=== PATIENT | female | born 1955 | race Caucasian/White ===

== ENCOUNTER 2020-01-15 06:00 | Outpatient (CLI) | payer MEDICARE, SELFPAY ==
[2020-01-15 17:06] LABS: SARS-CoV-2 RNA PCR Negative
== END 2020-01-15 06:01 | disposition home or self-care (01) ==
LOC: ANHCOVIDDT 06:01
PROVIDERS: Visit Provider Internal Medicine Gastroenterology
DX: Z01.818 Encounter for other preprocedural examination (principal); Z11.59 Encounter for screening for other viral diseases
CPT/HCPCS: 87635; C9803; U0003

== ENCOUNTER 2020-01-18 02:10 | Day surgery (SDC) | payer MEDICARE, SELFPAY ==
[2020-01-14 08:47] VITALS: BMI 22.6
[2020-01-18 06:30] VITALS: BP 130/81; PULSE 84; RESP 18; TEMP 37.2; O2SAT 94
[2020-01-18] MEDS: LACTATED RINGERS 1,000 ML 150 ML IV CONT (06:55)
--- NOTE | 2020-01-18 06:58 | WPDANESEPPF ---
Anes - Initial Pre Proc Eval Procedure: Operation Date: 01/18/20 07:30 Proposed Procedures p Colonoscopy - William Pratt MD Date/Time: 01/18/20 06:58 Surgeon: William Pratt MD Pre Op Diagnosis: Change in Bowel, Weight Loss Patient Data Age: 64 Gender: F Height: 4 ft 11 in Weight: 50.5 kg Last Vital Signs Temp 37.2 C 01/18/20 06:30 Pulse 84 01/18/20 06:30 Resp 18 01/18/20 06:30 BP 130/81 01/18/20 06:30 Pulse Ox 94 01/18/20 06:30 Allergies Allergy/AdvReac Type Severity Reaction Status Date / Time ciprofloxacin Allergy Intermediate sob and Verified 01/18/20 06:53 nausea clindamycin Allergy Intermediate sob and Verified 01/18/20 06:53 nausea Penicillins Allergy Intermediate sob and Verified 01/18/20 06:53 nausea amitriptyline Allergy Mild Nausea Verified 01/18/20 06:53 escitalopram Allergy Mild nauseated Verified 01/18/20 06:53 Home Medications Medication Instructions Recorded Confirmed Type albuterol sulfate [ProAir HFA] 1 puff INHALATION PRN PRN 01/14/20 01/18/20 History amlodipine 10 mg PO DAILY 01/14/20 01/14/20 History aspirin 81 mg PO DAILY 01/14/20 01/14/20 History bupropion HCl 150 mg PO DAILY 01/14/20 01/14/20 History gabapentin 300 mg PO TID 01/14/20 01/14/20 History hydrocodone-acetaminophen 5 - 325 tablet PO PRN PRN 01/14/20 01/14/20 History levothyroxine 100 mcg PO DAILY 01/14/20 01/14/20 History metoprolol tartrate 50 mg PO BID 01/14/20 01/18/20 History sertraline 50 mg PO DAILY 01/14/20 01/14/20 History umeclidinium [Incruse Ellipta] 62.5 inh INHALATION DAILY 01/14/20 01/14/20 History Patient hx anesthesia problems: none Family hx anesthesia problems: post op nausea/vomiting PMFSH Past Medical History Medical History (Updated 01/18/20 @ 06:58 by Cliff Flores MD) Anxiety COPD (chronic obstructive pulmonary disease) Depression Hypertension Hypothyroid Family History Family History Sibling Depression Family history of diabetes mellitus in first degree relative Mother Hypertension Father Family history of coronary artery disease Social History Social History Alcohol intake: never Anes - Eval Final PreProcedure Day of Procedure 01/18/20 06:58 Patient weight: normal Heart: regular rate and rhythm Lungs: decreased breath sounds Airway: Mallampati scale class 1 Neurological: alert and oriented Last oral intake: >/= 8 hours ASA classification: III Emergent: no Anesthetic plan: proceed Anesthesia type and monitoring: general GIVS and standard monitoring Informed Consent: The patient's anesthetic plan and its attendant risks and benefits were discussed with the patient/family/POA. Questions were solicited and answers provided to the satisfaction of the patient/family/POA.
--- NOTE | 2020-01-18 07:16 | PM.HPGS ---
History of Present Illness History of Present Illness Consent: Risks, benefits, and alternatives have been discussed and questions answered. Patient agrees to proceed with procedure. Chief complaint: Change in Bowel, Weight Loss Narrative: Romeo Aponte is a 64 year old W female Referred for colonoscopy secondary to recent change in bowel pattern. Patient states approximately 5 weeks ago she had developed a rash in the right lower abdomen associated with diarrhea. Several loose stools per day which he described as yellowish to green. She has had occasional bright red blood per rectum on the toilet paper. No fever chills or sweats. No recent travel. No change in medications. No exposure to well water. Patient's last colonoscopy was 15 years ago which was unremarkable. She states her brother had pancreatic cancer. Patient has lost approximately 5 lb. Patient has at least 30 year pack history of smoking continues to smoke. [facility] Past Medical History Medical History Anxiety COPD (chronic obstructive pulmonary disease) Depression Hypertension Hypothyroid Surgical History Surgical History (Updated 01/18/20 @ 07:19 by William Pratt MD) H/O total hysterectomy History of bladder suspension procedure Status post cholecystectomy Family History Family History Sibling Depression Family history of diabetes mellitus in first degree relative Mother Hypertension Father Family history of coronary artery disease Social History Social History Alcohol intake: never Meds Home Medications and Allergies Home Medications Medication Instructions Recorded Confirmed Type albuterol sulfate [ProAir HFA] 1 puff INHALATION PRN PRN 01/14/20 01/18/20 History amlodipine 10 mg PO DAILY 01/14/20 01/14/20 History aspirin 81 mg PO DAILY 01/14/20 01/14/20 History bupropion HCl 150 mg PO DAILY 01/14/20 01/14/20 History gabapentin 300 mg PO TID 01/14/20 01/14/20 History hydrocodone-acetaminophen 5 - 325 tablet PO PRN PRN 01/14/20 01/14/20 History levothyroxine 100 mcg PO DAILY 01/14/20 01/14/20 History metoprolol tartrate 50 mg PO BID 01/14/20 01/18/20 History sertraline 50 mg PO DAILY 01/14/20 01/14/20 History umeclidinium [Incruse Ellipta] 62.5 inh INHALATION DAILY 01/14/20 01/14/20 History Allergies Allergy/AdvReac Type Severity Reaction Status Date / Time ciprofloxacin Allergy Intermediate sob and Verified 01/18/20 06:53 nausea clindamycin Allergy Intermediate sob and Verified 01/18/20 06:53 nausea Penicillins Allergy Intermediate sob and Verified 01/18/20 06:53 nausea amitriptyline Allergy Mild Nausea Verified 01/18/20 06:53 escitalopram Allergy Mild nauseated Verified 01/18/20 06:53 Vital Signs Vital Signs - 24 hr 01/18/20 06:30 Temperature 37.2 C Pulse Rate 84 Respiratory Rate 18 Blood Pressure 130/81 Pulse Oximetry 94 Exam Const: Orientation/consciousness: patient oriented x3 Resp: Auscultation: clear to auscultation bilaterally Cardio: Rate: regular rate Rhythm: regular rhythm Heart sounds: no murmurs GI: GI Palp: Yes Soft to palpation, No Tenderness to palpation present (GI), Yes No hepatosplenomegaly present and No Palpable mass present Auscultation: normal bowel sounds Neuro: General: patient oriented x3 and no focal motor deficits Extrem: General: no pedal edema Assessment and Plan Additional Plan colonoscopy for evaluation of change in bowel pattern and hematochezia
[2020-01-18 07:55] VITALS: BP 77/53; PULSE 72; RESP 15; O2SAT 100
[2020-01-18 08:05] VITALS: BP 105/59; PULSE 65; RESP 17; O2SAT 98
[2020-01-18 08:15] VITALS: BP 119/65; PULSE 61; RESP 20; O2SAT 100
--- NOTE | 2020-01-18 15:31 | SUR.OPER ---
0800 -STOOL SAMPLE WALKED DOWN TO LAB AND GIVEN TO LAB STAFF.
== END 2020-01-18 08:33 | disposition home or self-care (01) ==
PROVIDERS: Visit Provider Internal Medicine Gastroenterology
PROC: 0DJD8ZZ Inspection of Lower Intestinal Tract, Via Natural or Artificial Opening Endoscopic (ICD-10-PCS; CPT 45378; principal; 2020-01-18 07:30)
DX: K52.9 Noninfective gastroenteritis and colitis, unspecified (principal); J44.9 Chronic obstructive pulmonary disease, unspecified; I10 Essential (primary) hypertension; E03.9 Hypothyroidism, unspecified; F41.8 Other specified anxiety disorders
CPT/HCPCS: 45380; 88305; J2001; J2704; J7120

== ENCOUNTER → 2020-08-23 13:53 | Outpatient (CLI) | payer MEDICARE, SELFPAY ==
--- NOTE | ~2020-08-23 | MM_ITS ---
EXAMINATION: MM screening erik BI w thomas HISTORY: Screening mammogram TECHNIQUE: Craniocaudal and mediolateral oblique 3-D tomosynthesis images were obtained and synthetic 2-D images were generated. CAD analysis was submitted and interpreted. COMPARISON: 05/25/2017, 03/19/2011 bilateral digital screening mammogram examinations BREAST PARENCHYMAL COMPOSITION: There are scattered areas of fibroglandular density. FINDINGS: Stable mild fibroglandular asymmetry. There is no evidence of suspicious mass, calcificatio n, or architectural distortion to suggest malignancy in either breast. There has been no suspicious i nterval change. IMPRESSION: 1. No mammographic evidence of malignancy. 2. Recommend routine screening mammography in one year. BI-RADS Category 2: Benign finding(s). Reviewed, dictated and finalized at location A. [employer]
== END ==
PROVIDERS: Visit Provider Obstetrics & Gynecology
DX: Z12.31 Encounter for screening mammogram for malignant neoplasm of breast (principal)
CPT/HCPCS: 77063; 77067

== ENCOUNTER 2021-08-15 15:08 | Emergency (ER) | payer MEDICARE, SELFPAY ==
[2021-08-15 15:15] VITALS: BP 153/76; PULSE 75; RESP 12; TEMP 36.6; O2SAT 98
[2021-08-15 15:20] VITALS: BP 153/76; PULSE 75; RESP 12; TEMP 36.6; O2SAT 98
--- NOTE | 2021-08-15 15:25 | ED.FEMALEGU ---
HPI - Female Genitourinary General Chief complaint: Urogenital-Female Stated complaint: POS UTI Time Seen by Provider: 08/15/21 15:15 Source: patient and RN notes reviewed History of Present Illness HPI Narrative: Patient is a 65-year-old female who presents the urgent care with complaints of right-sided flank pain with intermittent radiation to the right groin. Patient states that it started yesterday with urinary frequency. Denies of any blood in the urine. States that she has had bouts of nausea but denies of any vomiting. Denies of fever. Patient has increased her water intake but otherwise has not taken anything [id number] for her symptoms. Patient does report of a history of colitis but states the symptoms are not similar . Patient denies of history of kidney stones. No other acute complaints. No acute distress noted. Patient read the plan of care. Some parts of this dictation were generated by voice recognition software and may contain typographical and/or grammatical inaccuracies. Related Data Home Medications Medication Instructions Recorded Confirmed Incruse Ellipta 62.5 inh INHALATION DAILY 01/14/20 01/14/20 albuterol sulfate [ProAir HFA] 1 puff INHALATION PRN PRN 01/14/20 01/18/20 amlodipine 10 mg PO DAILY 01/14/20 01/14/20 aspirin 81 mg PO DAILY 01/14/20 01/14/20 bupropion HCl 150 mg PO DAILY 01/14/20 01/14/20 gabapentin 300 mg PO TID 01/14/20 01/14/20 hydrocodone-acetaminophen 5 - 325 tablet PO PRN PRN 01/14/20 01/14/20 levothyroxine 100 mcg PO DAILY 01/14/20 01/14/20 metoprolol tartrate 50 mg PO BID 01/14/20 01/18/20 sertraline 50 mg PO DAILY 01/14/20 01/14/20 Allergies Allergy/AdvReac Type Severity Reaction Status Date / Time ciprofloxacin Allergy Intermediate sob and Verified 01/18/20 06:53 nausea clindamycin Allergy Intermediate sob and Verified 01/18/20 06:53 nausea Penicillins Allergy Intermediate sob and Verified 01/18/20 06:53 nausea amitriptyline Allergy Mild Nausea Verified 01/18/20 06:53 escitalopram Allergy Mild nauseated Verified 01/18/20 06:53 Review of Systems Review of Systems: CONSTITUTIONAL: Denies fever, chills, or sweats. EYES: Denies visual changes, redness, or discharge. ENT: Denies rhinorrhea, congestion, sore throat, or otalgia. CARDIOVASCULAR: Denies chest pain, palpitations, or edema. RESPIRATORY: Denies cough or dyspnea. GASTROINTESTINAL: Reports of nausea without vomiting or diarrhea GENITOURINARY: Reports of urinary frequency and right-sided flank pain SKIN: Denies rash or itching. MUSCULOSKELETAL: Denies back pain, joint pain, or myalgia. NEUROLOGIC: Denies headache, numbness, or weakness. All other systems reviewed are negative, except as documented in HPI. [facility] Past Medical History Medical History (Updated 08/15/21 @ 15:31 by TAVARES Ellis) Anxiety COPD (chronic obstructive pulmonary disease) Depression Hypertension Hypothyroid Surgical History Surgical History (Updated 01/18/20 @ 07:19 by William CaseMD) H/O total hysterectomy History of bladder suspension procedure Status post cholecystectomy Family History Family History Sibling Depression Family history of diabetes mellitus in first degree relative Mother Hypertension Father Family history of coronary artery disease Social History Social History Alcohol intake: never Comments At the time of my signature, I reviewed and agree with the nursing past medical, surgical, social, and family history. There is no relevant family history pertinent to the patient complaint. Exam Narrative: GENERAL: This is a well-nourished, well-developed patient, in no apparent distress. HEAD: normocephalic, atraumatic. EYES: PERRL. Sclera clear/white. Vision is grossly intact. EARS: External ears normal NOSE: External nose normal with no obviou
== END 2021-08-15 15:36 | disposition home or self-care (01) ==
PROVIDERS: Emergency Provider Nurse Practitioner Family
DX: R10.9 Unspecified abdominal pain (principal); J44.9 Chronic obstructive pulmonary disease, unspecified; I10 Essential (primary) hypertension; E03.9 Hypothyroidism, unspecified; F41.9 Anxiety disorder, unspecified; F32.A Depression, unspecified
CPT/HCPCS: 81003; 99212; G0463

== ENCOUNTER 2022-04-07 14:22 | Emergency (ER) | payer MEDICARE, SELFPAY ==
[2022-04-07 14:25] VITALS: BP 167/90; PULSE 70; RESP 16; TEMP 36.6; O2SAT 94
--- NOTE | 2022-04-07 15:11 | ED.GENADULT ---
HPI - General Adult General Chief complaint: Wound/Laceration Stated complaint: infected fingers Time Seen by Provider: 04/07/22 14:31 History of Present Illness HPI narrative: 66-year-old female presents for evaluation of a rash versus infection on her fingers x2 weeks. She has kept the wound covered with gauze and ointment at all times during the day. Related Data Home Medications Medication Instructions Recorded Confirmed albuterol sulfate 90 mcg/actuation 1 puff inhalation PRN PRN sob 01/14/20 01/18/20 aerosol inhaler (ProAir HFA) amlodipine 10 mg tablet 10 mg PO DAILY 01/14/20 01/14/20 aspirin 81 mg tablet,delayed 81 mg PO DAILY 01/14/20 01/14/20 release bupropion HCl 150 mg 24 hr tablet, 150 mg PO DAILY 01/14/20 01/14/20 extended release gabapentin 300 mg capsule 300 mg PO TID 01/14/20 01/14/20 hydrocodone 5 mg-acetaminophen 325 5 - 325 tablet PO PRN PRN Pain 01/14/20 01/14/20 mg tablet levothyroxine 100 mcg tablet 100 mcg PO DAILY 01/14/20 01/14/20 metoprolol tartrate 50 mg tablet 50 mg PO BID 01/14/20 01/18/20 sertraline 50 mg tablet 50 mg PO DAILY 01/14/20 01/14/20 umeclidinium 62.5 mcg/actuation 62.5 inh inhalation DAILY 01/14/20 01/14/20 blister powder for inhalation (Incruse Ellipta) Allergies Allergy/AdvReac Type Severity Reaction Status Date / Time ciprofloxacin Allergy Intermediate sob and Verified 01/18/20 06:53 nausea clindamycin Allergy Intermediate sob and Verified 01/18/20 06:53 nausea Penicillins Allergy Intermediate sob and Verified 01/18/20 06:53 nausea amitriptyline Allergy Mild Nausea Verified 01/18/20 06:53 escitalopram Allergy Mild nauseated Verified 01/18/20 06:53 Review of Systems Review of Systems: CONSTITUTIONAL: Denies fever, chills, or sweats. EYES: Denies visual changes, redness, or discharge. ENT: Denies rhinorrhea, congestion, sore throat, or otalgia. CARDIOVASCULAR: Denies chest pain, palpitations, or edema. RESPIRATORY: Denies cough or dyspnea. GASTROINTESTINAL: Denies abdominal pain, nausea, vomiting, or diarrhea. GENITOURINARY: Denies dysuria or hematuria. SKIN: Denies rash or itching. MUSCULOSKELETAL: Denies back pain, joint pain, or myalgia. NEUROLOGIC: Denies headache, numbness, or weakness. PSYCHIATRIC: Denies anxiety or depression. PMFSH Past Medical History Medical History (Updated 04/08/22 @ 00:00 by Haydee Ramirez) Anxiety COPD (chronic obstructive pulmonary disease) Depression Hypertension Hypothyroid Surgical History Surgical History (Updated 01/18/20 @ 07:19 by William PrattMD) H/O total hysterectomy History of bladder suspension procedure Status post cholecystectomy Family History Family History Sibling Depression Family history of diabetes mellitus in first degree relative Mother Hypertension Father Family history of coronary artery disease Social History Social History Alcohol intake: never Exam Narrative: GENERAL: Well-appearing, well-nourished, and in no acute distress. HEAD: Normocephalic, atraumatic. EYES: PERRLA and EOMI. ENT: Nares clear, no rhinorrhea or epistaxis. Mucous membranes moist. NECK: Supple. CHEST: Clear to auscultation. No respiratory distress. HEART: Regular rate and rhythm. No murmur heard. Normal peripheral pulses. ABDOMEN: Soft, nontender, nondistended, normal active bowel sounds. EXTREMITIES: Normal range of motion. No edema. SKIN: Warm, dry, skin breakdown, rash noted on distal half of index and middle finger NEURO: No focal deficits. Alert and oriented x3. PSYCH: Normal mood and affect. Course Vital Signs Vital signs: Vital Signs Temperature 97.9 F 04/07/22 14:25 Pulse Rate 70 04/07/22 14:25 Respiratory Rate 16 04/07/22 14:25 Blood Pressure 167/90 H 04/07/22 14:25 Pulse Oximetry 94 04/07/22 14:25 Oxygen Delivery
--- NOTE | 2022-04-07 15:25 | ED.GENADULT ---
HPI - General Adult General Chief complaint: Wound/Laceration Stated complaint: infected fingers Time Seen by Provider: 04/07/22 14:31 History of Present Illness HPI narrative: 66-year-old female presents for evaluation of peeling skin and bilateral hands which has been present for months. She has tried an unknown topical medication without relief. Patient has also been covering the area with a Band-Aid at all times of day. No finger and she has full use/mobility of the fingers and hands. Related Data Home Medications Medication Instructions Recorded Confirmed albuterol sulfate 90 mcg/actuation 1 puff inhalation PRN PRN sob 01/14/20 05/17/22 aerosol inhaler (ProAir HFA) amlodipine 10 mg tablet 10 mg PO DAILY 01/14/20 05/17/22 hydrocodone 5 mg-acetaminophen 325 5 - 325 tablet PO PRN PRN Pain 01/14/20 05/17/22 mg tablet metoprolol tartrate 50 mg tablet 50 mg PO BID 01/14/20 05/17/22 sertraline 50 mg tablet 50 mg PO DAILY 01/14/20 05/17/22 fluticasone propionate 250 2 inh inhalation Q12H 05/17/22 05/17/22 mcg/actuation blister powder for inhalation (Flovent Diskus) gabapentin 300 mg capsule 300 mg PO BID 05/17/22 05/17/22 levothyroxine 75 mcg tablet 75 mcg PO DAILY 05/17/22 05/17/22 (Synthroid) multivitamin 1 tablet PO DAILY 05/17/22 05/17/22 Allergies Allergy/AdvReac Type Severity Reaction Status Date / Time ciprofloxacin Allergy Intermediate sob and Verified 05/17/22 14:25 nausea clindamycin Allergy Intermediate sob and Verified 05/17/22 14:25 nausea Penicillins Allergy Intermediate sob and Verified 05/17/22 14:25 nausea amitriptyline Allergy Mild Nausea Verified 05/17/22 14:25 escitalopram Allergy Mild nauseated Verified 05/17/22 14:25 shellfish derived AdvReac Hives Verified 05/17/22 14:25 Review of Systems Review of Systems: I have reviewed a 10 pt ros and it is negative except as noted in the HPI. [facility] Past Medical History Medical History (Updated 05/17/22 @ 14:32 by Socorro Dumont DO) Allergies Anxiety Arthritis Colitis COPD (chronic obstructive pulmonary disease) Depression Headache Hypertension Hypothyroid Surgical History Surgical History (Updated 05/17/22 @ 13:17 by lOya Garcia [facility]) H/O total hysterectomy 1982 History of bladder suspension procedure Previous back surgery Status post cholecystectomy Family History Family History (Updated 05/17/22 @ 13:19 by Olya Garcia [facility]) Sibling Depression Family history of diabetes mellitus in first degree relative Cancer Hypertension Thyroid disorder Mother Hypertension Cancer Depression Heart disease Thyroid disorder Father Family history of coronary artery disease Hypertension Heart disease Depression Grandparent Heart disease Hypertension Social History Social History (Updated 05/17/22 @ 13:20 by Olya Garcia [facility]) Smoking packs per day: 0.5 Smoking cigarettes per day: 10.0 Smoking status: Current every day smoker Alcohol intake: never Exam Narrative: GENERAL: Well-appearing, well-nourished, and in no acute distress. HEAD: Normocephalic, atraumatic. EYES: PERRLA and EOMI. ENT: Nares clear, no rhinorrhea or epistaxis. Mucous membranes moist. NECK: Supple. CHEST: Clear to auscultation. No respiratory distress. HEART: Regular rate and rhythm. No murmur heard. Normal peripheral pulses. ABDOMEN: Soft, nontender, nondistended, normal active bowel sounds. EXTREMITIES: Normal range of motion. No edema. SKIN: Warm, dry, peeling skin noted on palmar aspect of bilateral hands NEURO: No focal deficits. Alert and oriented x3. PSYCH: Normal mood and affect. Course Vital Signs Vital signs: Vital Signs Temperature 97.9 F 04/07/22 14:25 Pulse Rate 70 04/07/22 14:25 Respiratory Rate 16 04/07/22 14:25 Blood Pressure 167/90 H 04/07/22 14:25 Pulse Oximetry 94 04/07/22 14:25 Oxygen Delivery Room Air 04/07/22 14:25 Temperature 97.9
== END 2022-04-07 15:33 | disposition home or self-care (01) ==
PROVIDERS: Emergency Provider Emergency Medicine
DX: L30.9 Dermatitis, unspecified (principal); J44.9 Chronic obstructive pulmonary disease, unspecified; I10 Essential (primary) hypertension; E03.9 Hypothyroidism, unspecified; F32.A Depression, unspecified; F41.9 Anxiety disorder, unspecified; Z79.82 Long term (current) use of aspirin; Z90.710 Acquired absence of both cervix and uterus
CPT/HCPCS: 99283

== ENCOUNTER 2022-05-17 14:35 | Outpatient (CLI) | payer MEDICARE, SELFPAY ==
[2022-05-17 19:42] LABS: Basophils Absolute Auto 0.1 K/mm3 (0.0-0.1); Basophils Percent Auto 0.8 % (0.2-1.2); Eosinophils Absolute Auto 0.5 K/mm3 (0-0.3); Eosinophils Percent Auto 4.8 % (0-4.4); Hematocrit 48.7 % (37.0-47.0); Hemoglobin 15.8 g/dL (12.0-15.0); Immature Granulocyte Absolute 0.02 K/mm3 (0.00-0.031); Immature Granulocyte Percent A 0.2 % (0-0.5); Lymphocytes Absolute Auto 3.53 K/mm3 (0.9-3.2); Lymphocytes Percent Auto 37.9 % (18.3-44.2); Mean Corpuscular HGB Conc 32.4 g/dl (32-36); Mean Corpuscular Hemoglobin 28.7 pg (26-34); Mean Corpuscular Volume 88.4 fl (80-100); Monocytes Absolute Auto 0.7 K/mm3 (0.1-0.6); Monocytes Percent Auto 7.5 % (2.6-8.5); Neutrophils Absolute Auto 4.5 K/mm3 (1.3-6.7); Neutrophils Percent Auto 48.8 % (45.5-73.1); Platelet Count Result 249 k/mm3 (150-375); Red Blood Count 5.51 M/mm3 (4.2-5.4); Red Cell Distribution Width 14.6 % (11.5-14.5); White Blood Count 9.3 K/mm3 (4.5-10.0)
[2022-05-17 19:58] LABS: Alanine Aminotransferase 16 U/L (6-35); Albumin Level 4.4 g/dL (3.5-5.1); Alkaline Phosphatase 132 U/L (38-126); Anion Gap 8 mmol/L (8-16); Aspartate Amino Transferase 39 U/L (14-36); Bilirubin,Total 0.3 mg/dL (0.2-1.3); Blood Urea Nitrogen 15 mg/dL (7-17); Calcium 9.5 mg/dL (8.4-10.2); Carbon Dioxide 32 mmol/L (22-30); Chloride 99 mmol/L (98-107); Estimated Glomerular Filt Rate > 60; Glucose 84 mg/dL (65-110); Potassium 3.9 mmol/L (3.4-5.0); Sodium 139 mmol/L (137-145)
[2022-05-17 20:05] LABS: Rheumatoid Factor < 8.6 IU/ML (<12)
[2022-05-17 20:07] LABS: Erythrocyte Sedimentation Rate 9 mm/hr (0-20)
[2022-05-17 22:02] LABS: Free T4 Free Thyroxine 1.45 ng/mL (0.78-2.19); Vitamin D 25 Hydroxy 52.9 ng/mL
[2022-05-20 12:30] LABS: Anti Cyclic Citrullinated Pept <16 Units (<20)
== END 2022-05-17 14:36 | disposition home or self-care (01) ==
PROVIDERS: PCP Family Medicine; Visit Provider Family Medicine
DX: M25.50 Pain in unspecified joint (principal); E03.9 Hypothyroidism, unspecified; E55.9 Vitamin D deficiency, unspecified; I10 Essential (primary) hypertension
CPT/HCPCS: 36415; 80053; 82306; 84439; 84443; 85025; 85652; 86200; 86430

== ENCOUNTER 2022-10-31 11:42 | Inpatient (IN) | payer MEDICARE, SELFPAY ==
[2022-10-31] VITALS (19 sets, daily range): BP systolic 132–162; BP diastolic 74–103; PULSE 67–100; RESP 11–24; TEMP 36.3–36.4; O2SAT 84–100
--- NOTE | ~2022-10-31 | US_ITS ---
EXAMINATION: US venous doppler [facility] DATE: 11/01/2022 15:11 INDICATION: Lower limb edema. TECHNIQUE: Grayscale ultrasound images without and with compression and Doppler ultrasound images of the bilateral lower extremity veins were obtained. COMPARISON: None. FINDINGS: The visualized portions of right common femoral vein, profunda (deep) femoral vein, femoral vein, pop liteal vein, peroneal veins, posterior tibial veins, and greater saphenous vein outflow are patent. The visualized portions of left common femoral vein, profunda femoral vein, femoral vein, popliteal v ein, peroneal veins, posterior tibial veins, and greater saphenous vein outflow are patent. IMPRESSION: 1. No deep venous thrombosis. Reviewed, dictated and finalized at location [facility]. [facility]
--- NOTE | ~2022-10-31 | XR_ITS ---
EXAMINATION: XR chest 2V 10/31/2022 13:26 INDICATION: Cough and congestion. COPD. PROCEDURE: 2 view chest COMPARISON: Comparison to multiple prior studies sequentially, with oldest reviewed study dated 05/16. FINDINGS: The lungs are clear. The cardiomediastinal silhouette is within normal limits. There are no pleural effusions. There is no pneumothorax suspected. The lungs are hyperinflated which is cons istent with, but not diagnostic of chronic obstructive pulmonary disease. IMPRESSION: 1: NO ACUTE CARDIOPULMONARY DISEASE. Reviewed, dictated and finalized at location B. [employer] [employer]
--- NOTE | ~2022-10-31 | CT_ITS ---
EXAMINATION: CT diagnostic chest wo con DATE: 11/01/2022 13:19 INDICATION: Shortness of breath. COPD. TECHNIQUE: Computed tomography (CT) of the chest was performed without intravenous contrast. The dose -length product was 130.42 mGy-cm. Automated exposure control and iterative reconstruction technique were employed. COMPARISON: chest dated 10/31/2022 FINDINGS: No thoracic lymphadenopathy. There is atherosclerosis of the aorta and coronary arteries. N o significant pleural or pericardial effusion. There is advanced lower thoracic spondylosis with surg ical fusion changes. There are multiple small upper lobe nodules measuring 3 mm or less. There is mod erate emphysema. There is scarring at the right apex. No endobronchial lesions. No pneumothorax. No a cute osseous abnormality. IMPRESSION: 1. No acute cardiopulmonary disease. 2: Small bilateral pulmonary nodules measuring 3 mm or less, likely benign. Recommend follow-up low d ose CT chest in 12 months. 3: Moderate emphysema. Reviewed, dictated and finalized at location L. [employer] IMPRESSION: 1. No acute cardiopulmonary disease. 2: Small bilateral pulmonary nodules measuring 3 mm or less, likely benign. Rec ommend follow-up low dose CT chest in 12 months. 3: Moderate emphysema.
[2022-10-31 13:44] LABS: Basophils Absolute Auto 0.1 K/mm3 (0.0-0.1); Basophils Percent Auto 0.8 % (0.2-1.2); Eosinophils Absolute Auto 0.5 K/mm3 (0-0.3); Eosinophils Percent Auto 6.5 % (0-4.4); Hematocrit 50.6 % (37.0-47.0); Immature Granulocyte Absolute 0.02 K/mm3 (0.00-0.031); Immature Granulocyte Percent A 0.2 % (0-0.5); Lymphocytes Absolute Auto 2.69 K/mm3 (0.9-3.2); Lymphocytes Percent Auto 32.3 % (18.3-44.2); Mean Corpuscular HGB Conc 31.6 g/dl (32-36); Mean Corpuscular Hemoglobin 28.6 pg (26-34); Mean Corpuscular Volume 90.4 fl (80-100); Mean Platelet Volume 10.4 fl (7.4-10.4); Monocytes Absolute Auto 0.7 K/mm3 (0.1-0.6); Monocytes Percent Auto 8.1 % (2.6-8.5); Neutrophils Absolute Auto 4.3 K/mm3 (1.3-6.7); Neutrophils Percent Auto 52.1 % (45.5-73.1); Platelet Count Result 223 k/mm3 (150-375); Red Cell Distribution Width 14.5 % (11.5-14.5); White Blood Count 8.3 K/mm3 (4.5-10.0)
[2022-10-31 14:00] LABS: Alanine Aminotransferase 16 U/L (6-35); Albumin Level 4.4 g/dL (3.5-5.1); Alkaline Phosphatase 118 U/L (38-126); Anion Gap 5 mmol/L (8-16); Aspartate Amino Transferase 24 U/L (14-36); Bilirubin,Total 0.4 mg/dL (0.2-1.3); Blood Urea Nitrogen 13 mg/dL (7-17); Calcium 8.9 mg/dL (8.4-10.2); Carbon Dioxide 34 mmol/L (22-30); Chloride 94 mmol/L (98-107); Estimated Glomerular Filt Rate > 60; Glucose 89 mg/dL (65-110); Potassium 3.8 mmol/L (3.4-5.0); Sodium 133 mmol/L (137-145)
[2022-10-31 14:30] LABS: Influenza A QL RT-PCR Negative (Negative); Influenza B QL RT-PCR Negative (Negative); SARS-CoV-2 RNA PCR Negative
--- NOTE | 2022-10-31 18:39 | ED.SOB ---
HPI - SOB/Dyspnea General Chief Complaint: Shortness of Breath/Dyspnea <KLAUS Torres Last Filed: 11/01/22 01:48> Stated Complaint: COUGH,CONGESTION <KLAUS Torres Last Filed: 11/01/22 01:48> Time Seen by Provider: 10/31/22 18:24 <KLAUS Torres Last Filed: 11/01/22 01:48> History of Present Illness HPI Narrative: Patient is a 67-year-old female with a history of COPD, still currently smoking about half pack a day, here for evaluation of shortness of breath and cough over the past month. Patient states that she has been coughing up productive green sputum and has felt short of breath on minimal exertion. Over the past several days she has felt short of breath at rest but does state it is improved after she coughs. Has been out of her inhalers x 1 mo d/t insurance issues. She denies any chest pain. No fevers or chills, nausea or vomiting, leg swelling. She had a PCP office visit today and it was noted she had a new oxygen requirement satting in the high 80s which sent her to the ED. <KLAUS Torres Last Filed: 11/01/22 01:48> Related Data Home Medications: Home Medications Medication Instructions Recorded Confirmed amlodipine 10 mg tablet 10 mg PO DAILY 01/14/20 11/01/22 hydrocodone 5 mg-acetaminophen 325 5 - 325 tablet PO PRN PRN Pain 01/14/20 11/01/22 mg tablet metoprolol tartrate 50 mg tablet 50 mg PO BID 01/14/20 11/01/22 fluticasone propionate 250 2 inh inhalation Q12H 05/17/22 11/01/22 mcg/actuation blister powder for inhalation (Flovent Diskus) multivitamin 1 tablet PO DAILY 05/17/22 11/01/22 sertraline 50 mg tablet 50 mg PO DAILY 10/31/22 11/01/22 <KLAUS Torres Last Filed: 11/01/22 01:48> Allergies/Adverse Reactions: Allergies Allergy/AdvReac Type Severity Reaction Status Date / Time ciprofloxacin Allergy Intermediate sob and Verified 10/31/22 10:38 nausea clindamycin Allergy Intermediate sob and Verified 10/31/22 10:38 nausea Penicillins Allergy Intermediate sob and Verified 10/31/22 10:38 nausea amitriptyline Allergy Mild Nausea Verified 10/31/22 10:38 escitalopram Allergy Mild nauseated Verified 10/31/22 10:38 shellfish derived AdvReac Hives Verified 10/31/22 10:38 <Samantha Vanessa PA-C - Last Filed: 11/01/22 01:48> Review of Systems Review of Systems: Gen: Denies fevers or chills Eyes: Denies eye pain or visual change ENT: Denies congestion Respiratory: Reports shortness of breath and cough CV: Denies chest pain or palpitations GI: Denies abdominal pain nausea, emesis or diarrhea denies burning, urgency, frequency or hematuria Musculoskeletal: Denies back pain or muscle pain Neuro: Denies numbness, tingling, weakness or focal weakness Skin: Denies rash Except as documented, all other systems reviewed and negative <Samantha Vanessa PA-C - Last Filed: 11/01/22 01:48> [facility] Past Medical History Medical History: Medical History Allergies Anxiety Arthritis Colitis COPD (chronic obstructive pulmonary disease) Depression Headache Hypertension Hypothyroid <Samantha Vanessa PA-C - Last Filed: 11/01/22 01:48> Surgical History Surgical History: Surgical History H/O total hysterectomy 1982 History of bladder suspension procedure Previous back surgery Status post cholecystectomy <Samantha Vanessa PA-C - Last Filed: 11/01/22 01:48> Family History Family History: Family History Sibling Depression Family history of diabetes mellitus in first degree relative Cancer Hypertension Thyroid disorder Mother Hypertension Cancer Depression Heart disease Thyroid disorder Father Family history of coronary artery disease Hypertension
[2022-10-31] MEDS: IPRATROPIUM BR 0.02% INH SOLN 0.5 MG/2.5 ML VIAL INHALATION ×2 (18:49→20:10)
[2022-10-31] MEDS: ALBUTEROL SULFATE NEB 2.5 MG/3 ML INH INHALATION ×2 (18:50→20:11)
--- NOTE | 2022-10-31 18:55 | ECG_ITS ---
Measurements Intervals Pope Rate: 78 P: 71 OR: 142 QRS: 58 QRSD: 73 T: 67 QT: 388 QTc: 442 Interpretive Statements SINUS RHYTHM BASELINE ARTIFACT- V4-V6 NORMAL ECG NO PREVIOUS ECG AVAILABLE FOR COMPARISON Electronically Signed On 11-01-2022 6:30:28 [employer]ARCH PL[employer]NER by Azeem Garay D.O.
[2022-10-31] MEDS: methylPREDNISolone SOD SUCC 125 MG VIAL IV PUSH (18:58)
--- NOTE | 2022-10-31 19:02 | PC.NURSE ---
upd in progress. pt tolerating well. son at bedside.
[2022-10-31 19:03] LABS: Alveolar/Arterial O2 Gradient 32.7 mmHg; Base Excess ABG 3.5 mEq/l (+/-2.0); Fractional Inspired Oxygen 21 %; Oxygen Content ABG 19.2 %vol (16.0-22.0); PCO2 ABG 51.9 mmHg (35.0-45.0); PO2 ABG 54.9 mmHg (80.0-100.0); PO2 FiO2 Ratio Arterial Blood 2.61 %; Total Hemoglobin 16.3 g/dL (12.0-18.0)
[2022-10-31 19:05] LABS: Oxygen Saturation ABG 87.6 % (95.0-100.0)
[2022-10-31 19:06] LABS: Device ROOM AIR; Modified Allen's Test Pass; Site Drawn LEFT RADIAL
--- NOTE | 2022-10-31 21:06 | PM.IMHP ---
H&P: HPI History of Present Illness Date/Time: 10/31/22 21:06 Chief Complaint: 67 years old female with past medical history of hypertension COPD presented to the hospital shortness of breath started few days ago worsening gradually worsening with activity associated with cough multiple times a day patient is currently a smoker patient denies chest pain fever or chills at the ER patient was found to have hypoxia acute COPD exacerbation admitted to the hospital for further evaluation and treatment patient was treated with nebulizer treatment steroid and antibiotics Review of Systems Review of Systems: 12 system review was done negative except above PMFSH Past Medical History Medical History Allergies Anxiety Arthritis Colitis COPD (chronic obstructive pulmonary disease) Depression Headache Hypertension Hypothyroid Surgical History Surgical History H/O total hysterectomy 1982 History of bladder suspension procedure Previous back surgery Status post cholecystectomy Family History Family History Sibling Depression Family history of diabetes mellitus in first degree relative Cancer Hypertension Thyroid disorder Mother Hypertension Cancer Depression Heart disease Thyroid disorder Father Family history of coronary artery disease Hypertension Heart disease Depression Grandparent Heart disease Hypertension Social History Social History (Updated 10/31/22 @ 10:41 by Pratik Brooks MA) Smoking packs per day: 0.5 Smoking cigarettes per day: 10.0 Smoking status: Current every day smoker Alcohol intake: never Lack of Transportation: No Lack of Food: Often True Current Housing: I Have Housing Concerned About Future Housing: No Difficulty Paying Gas/Electric Bills: No Difficulty Paying for Meds: YES Currently Unemployed: No Education: High School Diploma/GED Difficulty w/ Childcare or Family Care: No Meds Home Medications and Allergies Home Medications Medication Instructions Recorded Confirmed Type amlodipine 10 mg tablet 10 mg PO DAILY 01/14/20 05/17/22 History hydrocodone 5 mg-acetaminophen 325 5 - 325 tablet PO PRN PRN Pain 01/14/20 05/17/22 History mg tablet metoprolol tartrate 50 mg tablet 50 mg PO BID 01/14/20 05/17/22 History hydrocortisone 1 % lotion 1 applic topical BID PRN rash 5 04/07/22 05/17/22 Rx (Anti-Itch (hydrocortisone)) days #120 mL fluticasone propionate 250 2 inh inhalation Q12H 05/17/22 05/17/22 History mcg/actuation blister powder for inhalation (Flovent Diskus) multivitamin 1 tablet PO DAILY 05/17/22 05/17/22 History levothyroxine 100 mcg tablet 100 mcg PO DAILY #90 tabs 08/06/22 08/06/22 Rx gabapentin 300 mg capsule 300 mg PO BID #180 caps 08/07/22 08/07/22 Rx albuterol sulfate 90 mcg/actuation 2 puff inhalation Q4-6H PRN sob 10/23/22 Rx aerosol inhaler (ProAir HFA) #8.5 grams sertraline 50 mg tablet 50 mg PO DAILY 10/31/22 History Allergies Allergy/AdvReac Type Severity Reaction Status Date / Time ciprofloxacin Allergy Intermediate sob and Verified 10/31/22 10:38 nausea clindamycin Allergy Intermediate sob and Verified 10/31/22 10:38 nausea Penicillins Allergy Intermediate sob and Verified 10/31/22 10:38 nausea amitriptyline Allergy Mild Nausea Verified 10/31/22 10:38 escitalopram Allergy Mild nauseated Verified 10/31/22 10:38 shellfish derived AdvReac Hives Verified 10/31/22 10:38 Vital Signs Vital Signs - 24 hr 10/31/22 12:53 10/31/22 17:16 10/31/22 18:35 Temperature 97.6 F 97.4 F L Pulse Rate 67 77 91 Respiratory Rate 20 16 24 H Blood Pressure 140/83 155/79 H 140/103 H Pulse Oximetry 92 90 84 L Oxygen Delivery Room Air 10/31/22 18:45 10/31/22 18:57 10/31/22 19:11 Temperature Pulse Rate 100
[2022-11-01] VITALS (19 sets, daily range): BP systolic 116–143; BP diastolic 52–66; PULSE 81–102; RESP 16–18; TEMP 36.6–37.2; O2SAT 86–97
--- NOTE | 2022-11-01 00:12 | ADMGEN ---
This patient, Romeo Aponte, was admitted to Medical Room 250-. Patient/family oriented to hospital policies and general routines including ID bracelet, bed and alarms, visiting hours, pain management, procedures, bathroom and other care routines, personal items, smoking policy, room service/diet, and visiting hours. Information on how to activate the Rapid Response Team has been discussed. Patient/Family are encouraged to report perceived risks to care and to ask questions if they do not understand what they are told or what they should do.
[2022-11-01] MEDS: SODIUM CHLORIDE 0.9% IV 1,000 ML 100 ML IV CONT ×3 (01:08→22:51)
[2022-11-01] MEDS: FAMOTIDINE 20 MG TABLET PO ×3 (01:10→20:07)
[2022-11-01] MEDS: guaiFENesin 12 HR 600 MG TABCR PO ×3 (01:10→20:07)
[2022-11-01] MEDS: HYDROcodone/acetaminophen (*CRX) 5-325 MG TABLET 1 TAB PO ×2 (01:13→18:07)
[2022-11-01] MEDS: ALBUTEROL SULFATE NEB 2.5 MG/3 ML INH INHALATION ×4 (03:06→20:11)
[2022-11-01] MEDS: IPRATROPIUM BR 0.02% INH SOLN 0.5 MG/2.5 ML VIAL INHALATION ×4 (03:06→20:11)
[2022-11-01 05:52] LABS: Basophils Percent Auto 0.2 % (0.2-1.2); Hematocrit 41.6 % (37.0-47.0); Hemoglobin 13.3 g/dL (12.0-15.0); Immature Granulocyte Absolute 0.02 K/mm3 (0.00-0.031); Immature Granulocyte Percent A 0.5 % (0-0.5); Lymphocytes Absolute Auto 0.67 K/mm3 (0.9-3.2); Lymphocytes Percent Auto 15.6 % (18.3-44.2); Mean Corpuscular Hemoglobin 27.8 pg (26-34); Mean Corpuscular Volume 86.8 fl (80-100); Mean Platelet Volume 10.7 fl (7.4-10.4); Monocytes Absolute Auto 0.1 K/mm3 (0.1-0.6); Monocytes Percent Auto 1.9 % (2.6-8.5); Neutrophils Absolute Auto 3.5 K/mm3 (1.3-6.7); Neutrophils Percent Auto 81.8 % (45.5-73.1); Platelet Count Result 187 k/mm3 (150-375); Red Blood Count 4.79 M/mm3 (4.2-5.4); Red Cell Distribution Width 14.1 % (11.5-14.5); White Blood Count 4.3 K/mm3 (4.5-10.0)
[2022-11-01 06:00] LABS: Alanine Aminotransferase 17 U/L (6-35); Albumin Level 3.5 g/dL (3.5-5.1); Alkaline Phosphatase 93 U/L (38-126); Anion Gap 4 mmol/L (8-16); Aspartate Amino Transferase 22 U/L (14-36); Bilirubin,Total 0.4 mg/dL (0.2-1.3); Blood Urea Nitrogen 17 mg/dL (7-17); Calcium 8.2 mg/dL (8.4-10.2); Carbon Dioxide 31 mmol/L (22-30); Chloride 99 mmol/L (98-107); Estimated Glomerular Filt Rate > 60; Glucose 185 mg/dL (65-110); Potassium 3.6 mmol/L (3.4-5.0); Sodium 134 mmol/L (137-145)
[2022-11-01] MEDS: methylPREDNISolone SOD SUCC 40 MG VIAL IV PUSH (06:27)
[2022-11-01] MEDS: LEVOTHYROXINE SODIUM 100 MCG TABLET PO (06:27)
[2022-11-01] MEDS: FLUTICASONE PROP 110 MCG INHALER 12 GM (*SP) 2 PUFF INHALATION (07:35)
[2022-11-01] MEDS: ENOXAPARIN 40 MG/0.4 ML SYRINGE SUB-Q (09:21)
[2022-11-01] MEDS: AZITHROMYCIN 250 MG TABLET 500 MG PO (09:21)
[2022-11-01] MEDS: METOPROLOL TARTRATE 50 MG TAB PO ×2 (09:22→20:07)
[2022-11-01] MEDS: SERTRALINE HCL 50 MG TABLET PO (09:22)
[2022-11-01] MEDS: MULTIVITAMINS THERAPEUTIC TAB (*BKC) 1 TABLET PO (09:22)
[2022-11-01] MEDS: GABAPENTIN 300 MG CAPSULE PO ×2 (09:22→16:32)
[2022-11-01] MEDS: amLODIPine BESYLATE 5 MG TABLET 10 MG PO (09:22)
--- NOTE | 2022-11-01 11:09 | PM.CNPUL ---
Assessment and Plan Assessment and plan (1) COPD with acute exacerbation: Code(s): J44.1 - Chronic obstructive pulmonary disease with (acute) exacerbation Status: Acute Assessment and Plan: GOLD grade 2 group E COPD with acute exacerbation Patient with a 52 pack year history of tobacco use and currently smoking half a pack a day, PFTs from 07/18/2000 and 11 with a mild obstructive abnormality, FEV1 is 1.53 L, 73% predicted, ratio 69%, air trapping, and normal DLCO. Of note the patient was admitted with a white blood cell count of 8.3, eosinophils of 6.5% for total of 540 per micro. patient presents with 1 month worsening dyspnea on exertion, increased cough, increased phlegm production and a change in color from clear to green and yellow, and expiratory wheezes. patient had a room air blood gas of 7.38/52/55 with a serum bicarbonate of 34 on admission. She may have chronic hypercarbic respiratory failure Patient has been treated with albuterol and ipratropium nebulizers Q 6 hours, Solu-Medrol 40 mg IV q.8 hours and started on azithromycin on 11/01 And the patient states her breathing is back to normal but she has a persistent cough that is improved. Agree with treatment for acute exacerbation of COPD. The patient stated she had wheezing this morning but has none now. I will decrease her Solu-Medrol from 40 Q 8 to 20 mg Q 6. I will continue albuterol and ipratropium nebulizers Q 6 hours. Continue azithromycin for possible tracheobronchitis and COPD exacerbation. Continue guaifenesin 600 mg p.o. q.12 hours. patient had a room air blood gas of 7.38/52/55 with a serum bicarbonate of 34 on admission. She may have chronic hypercarbic respiratory failure. serum bicarb this morning is 31. Once the patient is reached her baseline as an outpatient will repeat ABG to assess for chronic hypercarbic respiratory failure. Patient with pedal edema and I will check a D-dimer. The D-dimer is positive I will order CT angiogram of the chest. The CT D-dimer is negative I will order CT of the chest without contrast to exclude any focal infiltrates, assess for bullous emphysema and/or lung nodules. The patient has dyspnea on exertion now at 3 yd and 6 months ago she could only walk 10 yd. I will obtain an echocardiogram to assess LV function, RV function, valve function and PA pressures. Currently patient is on room air with saturations 91-93%. I will order an overnight oximetry on room air to assess her need for oxygen at night. the patient has a hard time affording any inhalers and I have asked the nurse to contact the doggy daycare activities director to determine what is the best option for inhalers at discharge. The patient told me she would like to quit smoking and tobacco cessation will be addressed in the future. Discussed with Frank Mendez. Will follow with you. History of Present Illness History of Present Illness Consult date: 11/01/22 Chief complaint: COPD exacerbation Narrative: 11/01/2022: This is a new pulmonary consult for COPD exacerbation 67-year-old with a history of hypertension, hypothyroidism, 2 back surgeries with arthritis and lower extremity neuropathy and COPD diagnosed approximately 15 years ago. I have PFTs from 07/18/2000 and 11 with a mild obstructive abnormality, FEV1 is 1.53 L, 73% predicted, ratio 69%, air trapping, and normal DLCO. Patient has been maintained on Flovent for approximately 3 years and rescue albuterol for approximately 5 5 years. Patient has difficulty getting her inhalers through insurance because of cope A's and cost and has not been on any inhalers for the last month. At baseline 6 months ago the patient said she could walk 10 yd because of back, hip pain and neuropathy. Now she can walk approximately 3 yd due to shortness of breath. She has had no hospitalizations and no exacerbations as an outpatient for the last 2-3 years. Leilani is a current smoker from age 15 at an [facility] [place]
--- NOTE | 2022-11-01 11:51 | ECHO_ITS ---
Patient Info Name: Romeo Aponte Age: 67 years : 1955 Gender: Female Ht: 59 in Wt: 99 lbs BSA: 1.37 m2 HR: 82 bpm BP: 116 / 52 mmHg Technical Quality: Good Exam Date: 11/01/2022 1:32 PM Exam Location: [facility] Patient Status: Outpatient Admit Date: 10/31/2022 Staff Ordering Physician: Dallas Ocampo MD Engineering Design Supervisor: Siva Montiel, JACQUELINE, RT Attending Provider: Arvin Weir M.A., MD Referring Physician: Terrence BOWSER; Exam Type: CA echo doppler w bubble study Study Info Indications J96.91 - Respiratory failure, unspecified with hypoxia Complete two-dimensional, color flow and Doppler transthoracic echocardiogram is performed. Strain analysis performed. Summary 1. Complete two-dimensional, color flow and Doppler transthoracic echocardiogram is performed. 2. Left ventricular chamber dimension is normal. 3. Left ventricular systolic function is normal, estimated at 65-70%. 4. The left ventricular diastolic function is abnormal. 5. E/e' 13 is mildly elevated. 6. Global longitudinal strain is normal at -21.6%. 7. There is trace tricuspid valve regurgitation. 8. No pulmonary hypertension, estimated pulmonary arterial systolic pressure is 37 mmHg. Left Ventricle E/e' 13 is mildly elevated. Global longitudinal strain is normal at -21.6%. Left ventricular chamber dimension is normal. Left ventricular systolic function is normal, estimated at 65-70%. The left ventricular diastolic function is abnormal. Right Ventricle Right ventricular systolic function is normal and with normal TAPSE 3.5 cm. Right ventricular chamber dimension is normal. Left Atria Left atrial chamber dimension is normal. Right Atria Right atrial chamber dimension is normal. Atrial Septum Agitated saline injection with and without valsalva maneuver opacified right side cardiac chambers without shunt to left side cardiac chambers. Intact interatrial septum visualized by 2D and agitated saline imaging. Aortic Valve The aortic valve is trileaflet. There is no aortic valve stenosis. There is no aortic valve regurgitation. Pulmonic Valve There is no pulmonic regurgitation. Mitral Valve There is no mitral valve stenosis. There is no mitral valve regurgitation. Tricuspid Valve There is trace tricuspid valve regurgitation. No pulmonary hypertension, estimated pulmonary arterial systolic pressure is 37 mmHg. Pericardium/Pleural There is no pericardial effusion. Inferior Vena Cava Normal inferior vena cava with >50% collapse upon inspiration consistent with normal right atrial pressure, 5 mmHg. Aorta The aortic root size at the sinus of Valsalva is normal. Left Ventricular Outflow Tract Name Value Normal LVOT 2D LVOT Diameter 2.1 cm LVOT Doppler LVOT Peak Gradient 7 mmHg LVOT Mean Gradient 4 mmHg LVOT VTI 28 cm LVOT VTI/AV VTI Ratio 0.9 LVOT Stroke Volume 100 ml LVOT CO 8.2 l/min LVOT CI
[2022-11-01] MEDS: methylPREDNISolone SOD SUCC 40 MG VIAL 20 MG IV PUSH ×3 (12:23→23:35)
--- NOTE | 2022-11-01 12:30 | PM.IMPN ---
Progress Note: A&P Assessment and Plan (1) COPD (chronic obstructive pulmonary disease): Qualifiers: COPD type: unspecified COPD Qualified Code(s): J44.9 - Chronic obstructive pulmonary disease, unspecified Code(s): J44.9 - Chronic obstructive pulmonary disease, unspecified Status: Acute Assessment and Plan: Acute COPD exacerbation associated with acute hypoxemic respiratory failure chest x-ray shows no acute abnormalities ABG pH 7.380, CO2 51.9, O2 54.9, HCO3 30.0, O2 sat 87.6, respiratory acidosis Nebulizer treatment IV Solu-Medrol 40mg IV Q8H, change to PO prednisone if wheezes are better Start Azithromycin for 5 days She will need home medications however, she will need to meet her deductible Supplemental oxygen wean to maintain saturation >88% Smoking cessation education given for [address] chest ordered (2) Depression: Code(s): F32.9 - Major depressive disorder, single episode, unspecified Status: Acute Assessment and Plan: Continue Sertraline mg PO daily (3) Hypothyroid: Code(s): E03.9 - Hypothyroidism, unspecified Status: Acute Assessment and Plan: Continue home medications of levothyroxine 100mcg PO daily Consider checking TSH (4) Hypertension: Code(s): I10 - Essential (primary) hypertension Status: Acute Assessment and Plan: BP is 116/52 Continue home metoprolol, amlodipine Trend BP Adjust therapy as indicated (5) Anxiety: Code(s): F41.9 - Anxiety disorder, unspecified Status: Acute Assessment and Plan: Continue home sertraline Time Spent With Patient Time: 52 minutes Time with patient: Greater than 35 minutes Subjective Date/time seen: 11/01/22 1230 Interval history: 11/01/22 1230 Patient is doing ok. She is ready to go, however, she is still getting pretty short of breath with light activity. She denies any chest pain, nausea, vomiting, diarrhea, constipation, weakness or fatigue. She does have a pretty significant cough. Spoke with pulmonology and recommendations have been addressed. Called the pharmacy about new medications. 10/31/22? 21:06 67 years old female with past medical history of hypertension COPD presented to the hospital shortness of breath started few days ago worsening gradually worsening with activity associated with cough multiple times a day patient is currently a smoker patient denies chest pain fever or chills at the ER patient was found to have hypoxia acute COPD exacerbation admitted to the hospital for further evaluation and treatment patient was treated with nebulizer treatment steroid and antibiotics Review of Systems Review of Systems: All systems reviewed & are unremarkable except as noted in HPI and below Exam Narrative: General: well-nourished, well-appearing 67-year-old female, sitting up in bed, comfortable, NARD Neuro: awake, alert and oriented x4, speech clear, no focal neuro deficits noted HEENMT: normocephalic, atraumatic, EOMI, sclerae anicteric, moist oral mucosa Respiratory: Clear to auscultation bilaterally without crackles, rhonchi or wheezes, nonlabored breathing, active wet cough noted Cardio: regular rate, regular rhythm with S1-S2 Abdomen: nondistended, normoactive bowel sounds, soft, nontender to palpation Extremities: 1+ edema, erythema, or tenderness to palpation, DP pulses 2+ bilaterally Skin: no rashes or lesions, warm and dry Psych: appropriate mood and affect, judgment and insight intact Objective Data Vital Signs Vital Signs: Vital Signs - 24 hr 10/31/22 12:53 10/31/22 17:16 10/31/22 18:35 Temperature 97.6 F 97.4 F L Pulse Rate 67 77 91 Respiratory Rate 20 16 24 H Blood Pressure 140/83 155/79 H 140/103 H Pulse Oximetry 92 90 84 L Oxygen Delivery Room Air Oxygen Flow Rate 10/31/22 18:45 10/31/22 18:57 0
--- NOTE | 2022-11-01 12:30 | P.PNIM_ITS ---
Progress Note: A&P Assessment and Plan (1) COPD (chronic obstructive pulmonary disease): Qualifiers: COPD type: unspecified COPD Qualified Code(s): J44.9 - Chronic obstructive pulmonary disease, unspecified Code(s): J44.9 - Chronic obstructive pulmonary disease, unspecified Status: Acute Assessment and Plan: * Acute COPD exacerbation associated with acute hypoxemic respiratory failure * chest x-ray shows no acute abnormalities * ABG pH 7.380, CO2 51.9, O2 54.9, HCO3 30.0, O2 sat 87.6, respiratory acidosis * Nebulizer treatment * IV Solu-Medrol 40mg IV Q8H, change to PO prednisone if wheezes are better * Start Azithromycin for 5 days * She will need home medications however, she will need to meet her deductible * Supplemental oxygen wean to maintain saturation >88% * Smoking cessation education given for 8 minutes * CT chest ordered (2) Depression: Code(s): F32.9 - Major depressive disorder, single episode, unspecified Status: Acute Assessment and Plan: * Continue Sertraline mg PO daily (3) Hypothyroid: Code(s): E03.9 - Hypothyroidism, unspecified Status: Acute Assessment and Plan: * Continue home medications of levothyroxine 100mcg PO daily * Consider checking TSH (4) Hypertension: Code(s): I10 - Essential (primary) hypertension Status: Acute Assessment and Plan: * BP is 116/52 * Continue home metoprolol, amlodipine * Trend BP * Adjust therapy as indicated (5) Anxiety: Code(s): F41.9 - Anxiety disorder, unspecified Status: Acute Assessment and Plan: * Continue home sertraline Time Spent With Patient Time: 52 minutes Time with patient: Greater than 35 minutes Subjective Date/time seen: 11/01/22 1230 Interval history: 11/01/22 1230 Patient is doing ok. She is ready to go, however, she is still getting pretty short of breath with light activity. She denies any chest pain, nausea, vomiting, diarrhea, constipation, weakness or fatigue. She does have a pretty significant cough. Spoke with pulmonology and recommendations have been addressed. Called the pharmacy about new medications. 10/31/22? 21:06 67 years old female with past medical history of hypertension COPD presented to the hospital shortness of breath started few days ago worsening gradually w orsening with activity associated with cough multiple times a day patient is currently a smoker patient denies chest pain fever or chills at the ER patient was found to have hypoxia acute COPD exacerbation admitted to the hospital for further evaluation and treatment patient was treated with nebulizer treatment steroid and antibiotics Review of Systems Review of Systems: All systems reviewed & are unremarkable except as noted in HPI and below Exam Narrative: General: well-nourished, well-appearing 67-year-old female, sitting up in bed, comfortable, NARD Neuro: awake, alert and oriented x4, speech clear, no focal neuro deficits noted HEENMT: normocephalic, atraumatic, EOMI, sclerae anicteric, moist oral mucosa Respiratory: Clear to auscultation bilaterally without crackles, rhonchi or wheezes, nonlabored breathing, active wet cough noted Cardio: regular rate, regular rhythm with S1-S2 Abdomen: nondistended, normoactive bowel sounds, soft, n
[2022-11-01 12:40] LABS: D Dimer 0.41 ug/mL (<0.48)
[2022-11-01] MEDS: guaiFENesin/DEXTROMETHORPHAN 10 ML UDC PO (12:51)
[2022-11-01] MEDS: ACETAMINOPHEN 500 MG TABLET 1000 MG PO (16:32)
[2022-11-01] MEDS: MORPHINE SULFATE (*CRX) 2 MG/ML INJ IV PUSH (20:07)
[2022-11-02] VITALS (11 sets, daily range): BP systolic 145; BP diastolic 77; PULSE 62–96; RESP 15–22; TEMP 37; O2SAT 87–94
[2022-11-02] MEDS: LEVOTHYROXINE SODIUM 100 MCG TABLET PO (05:26)
[2022-11-02] MEDS: guaiFENesin/DEXTROMETHORPHAN 10 ML UDC PO (05:26)
[2022-11-02] MEDS: methylPREDNISolone SOD SUCC 40 MG VIAL 20 MG IV PUSH (05:27)
[2022-11-02 06:34] LABS: Basophils Percent Auto 0.1 % (0.2-1.2); Hematocrit 41.8 % (37.0-47.0); Hemoglobin 13.7 g/dL (12.0-15.0); Immature Granulocyte Absolute 0.07 K/mm3 (0.00-0.031); Immature Granulocyte Percent A 0.7 % (0-0.5); Lymphocytes Absolute Auto 1.42 K/mm3 (0.9-3.2); Lymphocytes Percent Auto 13.8 % (18.3-44.2); Mean Corpuscular HGB Conc 32.8 g/dl (32-36); Mean Corpuscular Hemoglobin 29.1 pg (26-34); Mean Corpuscular Volume 88.7 fl (80-100); Mean Platelet Volume 10.6 fl (7.4-10.4); Monocytes Absolute Auto 0.5 K/mm3 (0.1-0.6); Monocytes Percent Auto 5.2 % (2.6-8.5); Neutrophils Absolute Auto 8.3 K/mm3 (1.3-6.7); Neutrophils Percent Auto 80.2 % (45.5-73.1); Platelet Count Result 188 k/mm3 (150-375); Red Blood Count 4.71 M/mm3 (4.2-5.4); Red Cell Distribution Width 14.6 % (11.5-14.5); White Blood Count 10.3 K/mm3 (4.5-10.0)
[2022-11-02 06:51] LABS: Alanine Aminotransferase 21 U/L (6-35); Albumin Level 3.7 g/dL (3.5-5.1); Alkaline Phosphatase 86 U/L (38-126); Anion Gap 6 mmol/L (8-16); Aspartate Amino Transferase 28 U/L (14-36); Bilirubin,Total 0.4 mg/dL (0.2-1.3); Blood Urea Nitrogen 10 mg/dL (7-17); Calcium 8.2 mg/dL (8.4-10.2); Carbon Dioxide 29 mmol/L (22-30); Chloride 101 mmol/L (98-107); Estimated Glomerular Filt Rate > 60; Glucose 116 mg/dL (65-110); Potassium 3.6 mmol/L (3.4-5.0); Sodium 136 mmol/L (137-145)
[2022-11-02] MEDS: ALBUTEROL SULFATE NEB 2.5 MG/3 ML INH INHALATION (07:25)
[2022-11-02] MEDS: IPRATROPIUM BR 0.02% INH SOLN 0.5 MG/2.5 ML VIAL INHALATION (07:25)
--- NOTE | 2022-11-02 07:46 | P.PNIM_ITS ---
Progress Note: A&P Assessment and Plan (1) COPD (chronic obstructive pulmonary disease): Qualifiers: COPD type: unspecified COPD Qualified Code(s): J44.9 - Chronic obstructive pulmonary disease, unspecified Code(s): J44.9 - Chronic obstructive pulmonary disease, unspecified Status: Acute Assessment and Plan: * Acute COPD exacerbation associated with acute hypoxemic respiratory failure * chest x-ray shows no acute abnormalities * ABG pH 7.380, CO2 51.9, O2 54.9, HCO3 30.0, O2 sat 87.6, respiratory acidosis * Nebulizer treatment * IV Solu-Medrol 20mg IV Q6H, change to PO prednisone if wheezes are better * Start Azithromycin for 5 days * She will need home medications however, she will need to meet her deductible * Supplemental oxygen wean to maintain saturation >88% * Smoking cessation education given for 8 minutes * CT chest moderate emphysema * DC with breo elipta and spiriva if affordable (2) Depression: Code(s): F32.9 - Major depressive disorder, single episode, unspecified Status: Acute Assessment and Plan: * Continue Sertraline mg PO daily (3) Hypothyroid: Code(s): E03.9 - Hypothyroidism, unspecified Status: Acute Assessment and Plan: * Continue home medications of levothyroxine 100mcg PO daily * Consider checking TSH (4) Hypertension: Code(s): I10 - Essential (primary) hypertension Status: Acute Assessment and Plan: * BP is 145/77 * Continue home metoprolol, amlodipine * Trend BP * Adjust therapy as indicated (5) Anxiety: Code(s): F41.9 - Anxiety disorder, unspecified Status: Acute Assessment and Plan: * Continue home sertraline Time Spent With Patient Time: 48 minutes Subjective Date/time seen: 11/02/22 07:46 Interval history: 11/02/22 11/01/22 1230 Patient is doing ok. She is ready to go, however, she is still getting pretty short of breath with light activity. She denies any chest pain, nausea, vomit ing, diarrhea, constipation, weakness or fatigue. She does have a pretty significant cough. Spoke with pulmonology and recommendations have been addressed. Called the pharmacy about new medications. 10/31/22? 21:06 67 years old female with past medical history of hypertension COPD presented to the hospital shortness of breath started few days ago worsening gradually worsening with activity associated with cough multiple times a day patient is currently a smoker patient denies chest pain fever or chills at the ER patient was found to have hypoxia acute COPD exacerbation admitted to the hospital for further evaluation and treatment patient was treated with nebulizer treatment steroid and antibiotics Review of Systems Review of Systems: All systems reviewed & are unremarkable except as noted in HPI and below Exam Narrative: General: well-nourished, well-appearing 67-year-old female, sitting up in bed, comfortable, NARD Neuro: awake, alert and oriented x4, speech clear, no focal neuro deficits noted HEENMT: normocephalic, atraumatic, EOMI, sclerae anicteric, moist oral mucosa Respiratory: Clear to auscultation bilaterally without crackles, rhonchi or wheezes, nonlabored breathing, active wet cough noted Cardio: regular rate, regular rhythm with S1-S2 Abdomen:
--- NOTE | 2022-11-02 07:46 | PM.IMPN ---
Progress Note: A&P Assessment and Plan (1) COPD (chronic obstructive pulmonary disease): Qualifiers: COPD type: unspecified COPD Qualified Code(s): J44.9 - Chronic obstructive pulmonary disease, unspecified Code(s): J44.9 - Chronic obstructive pulmonary disease, unspecified Status: Acute Assessment and Plan: Acute COPD exacerbation associated with acute hypoxemic respiratory failure chest x-ray shows no acute abnormalities ABG pH 7.380, CO2 51.9, O2 54.9, HCO3 30.0, O2 sat 87.6, respiratory acidosis Nebulizer treatment IV Solu-Medrol 20mg IV Q6H, change to PO prednisone if wheezes are better Start Azithromycin for 5 days She will need home medications however, she will need to meet her deductible Supplemental oxygen wean to maintain saturation >88% Smoking cessation education given for [address] chest moderate emphysema DC with breo elipta and spiriva if affordable (2) Depression: Code(s): F32.9 - Major depressive disorder, single episode, unspecified Status: Acute Assessment and Plan: Continue Sertraline mg PO daily (3) Hypothyroid: Code(s): E03.9 - Hypothyroidism, unspecified Status: Acute Assessment and Plan: Continue home medications of levothyroxine 100mcg PO daily Consider checking TSH (4) Hypertension: Code(s): I10 - Essential (primary) hypertension Status: Acute Assessment and Plan: BP is 145/77 Continue home metoprolol, amlodipine Trend BP Adjust therapy as indicated (5) Anxiety: Code(s): F41.9 - Anxiety disorder, unspecified Status: Acute Assessment and Plan: Continue home sertraline Time Spent With Patient Time: 48 minutes Subjective Date/time seen: 11/02/22 07:46 Interval history: 11/02/22 11/01/22 1230 Patient is doing ok. She is ready to go, however, she is still getting pretty short of breath with light activity. She denies any chest pain, nausea, vomiting, diarrhea, constipation, weakness or fatigue. She does have a pretty significant cough. Spoke with pulmonology and recommendations have been addressed. Called the pharmacy about new medications. 10/31/22? 21:06 67 years old female with past medical history of hypertension COPD presented to the hospital shortness of breath started few days ago worsening gradually worsening with activity associated with cough multiple times a day patient is currently a smoker patient denies chest pain fever or chills at the ER patient was found to have hypoxia acute COPD exacerbation admitted to the hospital for further evaluation and treatment patient was treated with nebulizer treatment steroid and antibiotics Review of Systems Review of Systems: All systems reviewed & are unremarkable except as noted in HPI and below Exam Narrative: General: well-nourished, well-appearing 67-year-old female, sitting up in bed, comfortable, NARD Neuro: awake, alert and oriented x4, speech clear, no focal neuro deficits noted HEENMT: normocephalic, atraumatic, EOMI, sclerae anicteric, moist oral mucosa Respiratory: Clear to auscultation bilaterally without crackles, rhonchi or wheezes, nonlabored breathing, active wet cough noted Cardio: regular rate, regular rhythm with S1-S2 Abdomen: nondistended, normoactive bowel sounds, soft, nontender to palpation Extremities: 1+ edema, erythema, or tenderness to palpation, DP pulses 2+ bilaterally Skin: no rashes or lesions, warm and dry Psych: appropriate mood and affect, judgment and insight intact Objective Data Vital Signs Vital Signs: Vital Signs - 24 hr 11/01/22 07:51 11/01/22 09:22 11/01/22 09:20 Temperature Pulse Rate 89 102 H Respiratory Rate 16 Blood Pressure Pulse Oximetry 93 Oxygen Delivery Nasal Cannula Oxygen Flow Rate 2 Fraction of Inspired Oxygen 11/01/22 1
[2022-11-02] MEDS: AZITHROMYCIN 250 MG TABLET PO (08:27)
[2022-11-02] MEDS: amLODIPine BESYLATE 5 MG TABLET 10 MG PO (08:27)
[2022-11-02] MEDS: FAMOTIDINE 20 MG TABLET PO (08:28)
[2022-11-02] MEDS: ENOXAPARIN 40 MG/0.4 ML SYRINGE SUB-Q (08:28)
[2022-11-02] MEDS: guaiFENesin 12 HR 600 MG TABCR PO (08:29)
[2022-11-02] MEDS: GABAPENTIN 300 MG CAPSULE PO (08:29)
[2022-11-02] MEDS: METOPROLOL TARTRATE 50 MG TAB PO (08:29)
[2022-11-02] MEDS: SERTRALINE HCL 50 MG TABLET PO (08:30)
[2022-11-02] MEDS: MULTIVITAMINS THERAPEUTIC TAB (*BKC) 1 TABLET PO (08:30)
--- NOTE | 2022-11-02 09:10 | PM.PNPUL ---
Progress Note: A&P Assessment and Plan (1) COPD with acute exacerbation: Code(s): J44.1 - Chronic obstructive pulmonary disease with (acute) exacerbation Status: Acute Assessment and Plan: GOLD grade 2 group E COPD with acute exacerbation Patient with a 52 pack year history of tobacco use and currently smoking half a pack a day, PFTs from 07/18/2011 with a mild obstructive abnormality, FEV1 is 1.53 L, 73% predicted, ratio 69%, air trapping, and normal DLCO. Of note the patient was admitted with a white blood cell count of 8.3, eosinophils of 6.5% for total of 540 per micro. patient presents with 1 month worsening dyspnea on exertion, increased cough, increased phlegm production and a change in color from clear to green and yellow, and expiratory wheezes. patient had a room air blood gas of 7.38/52/55 with a serum bicarbonate of 34 on admission. She may have chronic hypercarbic respiratory failure. 11/01 Patient has been treated with albuterol and ipratropium nebulizers Q 6 hours, Solu-Medrol 40 mg IV q.8 hours and started on azithromycin on 11/01 And the patient states her breathing is back to normal but she has a persistent cough that is improved. Agree with treatment for acute exacerbation of COPD. The patient stated she had wheezing this morning but has none now. I will decrease her Solu-Medrol from 40 Q 8 to 20 mg Q 6. I will continue albuterol and ipratropium nebulizers Q 6 hours. Continue azithromycin for possible tracheobronchitis and COPD exacerbation. Continue guaifenesin 600 mg p.o. q.12 hours. patient had a room air blood gas of 7.38/52/55 with a serum bicarbonate of 34 on admission. She may have chronic hypercarbic respiratory failure. serum bicarb this morning is 31. Once the patient is reached her baseline as an outpatient will repeat ABG to assess for chronic hypercarbic respiratory failure. Patient with pedal edema and I will check a D-dimer. The D-dimer is positive I will order CT angiogram of the chest. The CT D-dimer is negative I will order CT of the chest without contrast to exclude any focal infiltrates, assess for bullous emphysema and/or lung nodules. The patient has dyspnea on exertion now at 3 yd and 6 months ago she could only walk 10 yd. I will obtain an echocardiogram to assess LV function, RV function, valve function and PA pressures. Currently patient is on room air with saturations 91-93%. I will order an overnight oximetry on room air to assess her need for oxygen at night. the patient has a hard time affording any inhalers and I have asked the nurse to contact the home care and home health aides teacher to determine what is the best option for inhalers at discharge. The patient told me she would like to quit smoking and tobacco cessation will be addressed in the future. D-dimer was negative, CT of the chest demonstrated moderate apical predominant centrilobular emphysema and mild apical predominant paraseptal emphysema with no nodules and no flow confluent infiltrates. Lower extremity Dopplers were negative. Echocardiogram with normal LVEF, normal right ventricular size and function, normal right atrial size, PASP 37. 3/3 patient continues to improve in tells me she is 80% back to her normal. She has a persistent cough that is mildly improved and with some congestion and phlegm production. Afebrile, White blood cell count is 10.3, creatinine is 0.4. Patient had an overnight oximetry on room air with an average saturation of 87%, low saturation 81%, time with saturation less than or equal to 88% was 341 minutes, oxygen desaturation index was 3.1. patient should be discharged on 3 L nasal cannula at night with a repeat overnight oximetry on these settings as an outpatient. The patient has COPD with a high eosinophil count and she should be discharged on a beta agonist, muscarinic antagonist and inhaled corticosteroids. From a pulmonary perspective patient is ready to be discharged on these pu
--- NOTE | 2022-11-02 10:15 | PM.DS ---
DS: Admitting Diagnosis Discharge Date 11/02/22 1015 Admitting Diagnosis COPD exacerbation DS: Discharge Diagnosis Discharge Diagnosis (1) COPD (chronic obstructive pulmonary disease): Qualifiers: COPD type: unspecified COPD Qualified Code(s): J44.9 - Chronic obstructive pulmonary disease, unspecified Code(s): J44.9 - Chronic obstructive pulmonary disease, unspecified Status: Acute Assessment and Plan: Acute COPD exacerbation associated with acute hypoxemic respiratory failure chest x-ray shows no acute abnormalities ABG pH 7.380, CO2 51.9, O2 54.9, HCO3 30.0, O2 sat 87.6, respiratory acidosis Nebulizer treatment IV Solu-Medrol 20mg IV Q6H, change to PO prednisone if wheezes are better Start Azithromycin for 5 days She will need home medications however, she will need to meet her deductible Supplemental oxygen wean to maintain saturation >88% Smoking cessation education given for [address] chest moderate emphysema DC with breo elipta and spiriva if affordable (2) Depression: Code(s): F32.9 - Major depressive disorder, single episode, unspecified Status: Acute Assessment and Plan: Continue Sertraline mg PO daily (3) Hypothyroid: Code(s): E03.9 - Hypothyroidism, unspecified Status: Acute Assessment and Plan: Continue home medications of levothyroxine 100mcg PO daily Consider checking TSH (4) Hypertension: Code(s): I10 - Essential (primary) hypertension Status: Acute Assessment and Plan: BP is 145/77 Continue home metoprolol, amlodipine Trend BP Adjust therapy as indicated (5) Anxiety: Code(s): F41.9 - Anxiety disorder, unspecified Status: Acute Assessment and Plan: Continue home sertraline DS: Summary Hospital Course Hospital Course: Patient is a 59-year-old female with a past medical history hypertension, COPD who presented to the ED with complaints of shortness of breath. Patient is a current everyday smoker and smoking cessation has been given. ABG was performed showed the patient was in respiratory acidosis with hypoxia. Patient was started on Solu-Medrol and nebulizer treatments. Chest x-ray did show no acute abnormalities chest CT was ordered and did show moderate emphysema. Pulmonology was consulted for further help in management. Patient had been started on azithromycin for further support. Supplemental oxygen has been provided has been weaned to maintain saturations greater than 90%. Labs and vital signs have been stable throughout the entire visit. Patient has improved and done well through admission. Currently patient denies any chest pain, nausea, vomiting, diarrhea, constipation, weakness or fatigue. Patient did state she still has some dyspnea with exertion however it is a lot better. Patient stable for discharge for labs and vital signs at this time. Status at Discharge Functional status at discharge: independent ambulation Overall status at discharge: patient is progressing back to baseline Time Spent with Patient Time attestation: Total time spent providing and/or coordinating discharge services: 47 minutes Time spent: Greater than 30 minutes Specific discharge activities: Diagnostic testing, chart review, developing a treatment plan, education, care coordination documentation, physical exam, result review Exam Narrative: General: well-nourished, well-appearing 67-year-old female, sitting up in bed, comfortable, NARD Neuro: awake, alert and oriented x4, speech clear, no focal neuro deficits noted HEENMT: normocephalic, atraumatic, EOMI, sclerae anicteric, moist oral mucosa Respiratory: Clear to auscultation bilaterally without crackles, rhonchi or wheezes, nonlabored breathing, active wet cough noted Cardio: regular rate, regular rhythm with S1-S2 Abdomen: nondistended, normoactiv
--- NOTE | 2022-11-02 11:37 | HOMEO2EVAL ---
Evaluation was performed at [facility] Home Oxygen Evaluation RC: Home Oxygen (O2) Evaluation Start: 11/02/22 08:28 Freq: ONCE Status: Active Protocol: RPE Activity Type Activity Date Activity User E-sign Co-sign Detail Recorded Client Recorded Date Recorded By Document 11/02/22 10:00 [email or web address] [email or web address] 11/02/22 11:37 DJO Document 11/02/22 10:05 [email or web address] [email or web address] 11/02/22 11:37 DJO Document 11/02/22 10:06 [email or web address] [email or web address] 11/02/22 11:37 DJO Document 11/02/22 10:08 [email or web address] [email or web address] 11/02/22 11:37 DJO Document 11/02/22 10:15 [email or web address] [email or web address] 11/02/22 11:37 DJO 11/02/22 11/02/22 11/02/22 10:00 10:05 10:06 Home O2 Evaluation [Oxygen] -Test Phase Resting Exercise Exercise -Oxygen Delivery Room Air Room Air Nasal Cannula -Oxygen Flow Rate (L/min) 1 [Pulse Oximetry] -Pulse Oximetry (90-100 %) 89 L 87 L 87 L [Pulse Rate] -Pulse Rate (60-100 beats/min) 62 89 [Comments] -Home Oxygen Evaluation Comments [Charges] -Treatment Charges O2 Evaluation - Inpatient 11/02/22 11/02/22 10:08 10:15 Home O2 Evaluation [Oxygen] -Test Phase Exercise Resting -Oxygen Delivery Nasal Cannula Room Air -Oxygen Flow Rate (L/min) 2 [Pulse Oximetry] -Pulse Oximetry (90-100 %) 90 91 [Pulse Rate] -Pulse Rate (60-100 beats/min) 84 [Comments] -Home Oxygen Evaluation Comments HOME O2 NEEDED AT 2 LITERS WITH ACTIVITY [Charges] -Treatment Charges
--- NOTE | 2022-11-02 15:14 | PCRCNOTE ---
Home O2 eval done, Pt requires 2 L wih
--- NOTE | 2022-11-02 15:14 | PCRCNOTE ---
Home O2 eval done, pt requires 2 L o2 with activity and 3 L with sleep. set up with [facility]. Transport tank has been given to pt and [facility] will complete set up in home.
[2022-11-04] LABS: Pneumococcal Antigen Urine Not Detected (Not Detected)
== END 2022-11-02 14:30 | disposition home or self-care (01) | DRG 190 ==
LOC: ANHED 18:24 → ANH2MED 22:49
PROVIDERS: Emergency Medicine; Internal Medicine Pulmonary Disease; Admitting Provider Internal Medicine; Emergency Provider Physician Assistant; PCP Family Medicine; Visit Provider Nurse Practitioner
DX: J43.2 Centrilobular emphysema (principal); J96.01 Acute respiratory failure with hypoxia; E03.9 Hypothyroidism, unspecified; F17.210 Nicotine dependence, cigarettes, uncomplicated; F32.A Depression, unspecified; F41.9 Anxiety disorder, unspecified; I10 Essential (primary) hypertension; M19.90 Unspecified osteoarthritis, unspecified site; Z20.822 Contact with and (suspected) exposure to COVID-19; Z90.710 Acquired absence of both cervix and uterus; Z90.49 Acquired absence of other specified parts of digestive tract
CPT/HCPCS: 36415; 36600; 71046; 71250; 80053; 82805; 83735; 84439; 84443; 85025; 85380; 87040; 87636; 87899; 93005; 93306; 93970; 94618; 94640; 94762; 96361; 96372; 96374; 96375; 96376; 99285; A9270; G0378; J1650; J2270; J2920; J2930; J7030

== ENCOUNTER 2022-11-29 11:47 | Outpatient (CLI) | payer MEDICARE, SELFPAY ==
[2022-11-29 19:01] LABS: Free T4 Free Thyroxine 1.81 ng/mL (0.78-2.19)
== END 2022-11-29 11:48 | disposition home or self-care (01) ==
LOC: ANHGOSHLAB 11:49
PROVIDERS: PCP Family Medicine; Visit Provider Family Medicine
DX: E03.9 Hypothyroidism, unspecified (principal)
CPT/HCPCS: 36415; 84439; 84443

== ENCOUNTER 2022-12-21 12:52 | Outpatient (CLI) | payer MEDICARE, SELFPAY ==
[2022-12-21 13:49] LABS: Base Excess ABG 2.1 mEq/l (+/-2.0); Carboxyhemoglobin 5.4 % THb (0-2.0); Fractional Inspired Oxygen 21 %; HCO3 ABG 26.9 mEq/l (22.0-26.0); Methemoglobin ABG 0.2 %THb (0-1.5); Oxygen Content ABG 18.5 %vol (16.0-22.0); Oxygen Saturation ABG 90.7 % (95.0-100.0); PCO2 ABG 42.3 mmHg (35.0-45.0); PO2 ABG 58.1 mmHg (80.0-100.0); PO2 FiO2 Ratio Arterial Blood 2.77 %; Reduced Hemoglobin 8.7 %THb (0-5.0); Total Hemoglobin 15.4 g/dL (12.0-18.0); pH ABG 7.421 (7.350-7.450)
[2022-12-21 14:15] LABS: Oxyhemoglobin 85.7 % THb (90.0-100.0)
[2022-12-21 14:16] LABS: Device ROOM AIR; Modified Allen's Test Pass; Site Drawn RIGHT RADIAL
--- NOTE | 2022-12-24 12:57 | WPDPFTINT ---
PFT Procedure Performed PFT Procedure Performed Spirometry with Pre/Post Bronchodilator Plethysmography (Lung Vol) Diffusing Cap (DLCO) Flow Vol Loop PFT Interpretation This is a pulmonary function test with pre and post-bronchodilator spirometry, plethysmography and diffusing capacity. The test was performed and results interpreted in accordance with the 2019 and 2005 ATS/ERS Task Force guidelines respectively using the Global Lung Function Initiative-2012 reference equations. Patient demonstrated good effort and cooperation. Reproducibility criteria were met. The quality of the pre bronchodilator spirometry maneuver was Grade A and post bronchodilator spirometry maneuver was Grade A. Findings: Spirometry: There is decreased maximal expiratory airflow at all lung volumes with concave expiratory flow tracing. The contour the inspiratory flow tracing is normal. The pre bronchodilator FVC is 2.13 L, 88% predicted. The pre bronchodilator FEV1 is 0.98 L, 51% predicted. The pre bronchodilator FEV1: FVC ratio is 46%. The post bronchodilator FVC is 2.10 L, representing a 2% decrease. The post bronchodilator FEV1 is 1.02 L, representing a 4% increase. The post bronchodilator FEV1: FVC ratio is 49%. Plethysmography: The total lung capacity is 4.76 L, 110% predicted. The functional residual capacity is 3.39 L, 140% predicted. The residual volume is 2.63 L, 138% predicted. Diffusion capacity: The diffusing capacity unadjusted for hemoglobin and carboxyhemoglobin is 8.5, 46% predicted. The diffusing capacity adjusted for alveolar volume is 3.21, 71% predicted. Impression: There is a moderately severe obstructive abnormality without significant improvement after inhaling a single dose of albuterol. The lung volumes are normal. The diffusing capacity is normal. There are no prior studies for comparison
== END 2022-12-21 12:53 | disposition home or self-care (01) ==
PROVIDERS: PCP Family Medicine; Visit Provider Nurse Practitioner Family
DX: J44.9 Chronic obstructive pulmonary disease, unspecified (principal); R94.2 Abnormal results of pulmonary function studies
CPT/HCPCS: 36600; 82375; 82805; 83050; 94060; 94726; 94729

== ENCOUNTER 2023-06-24 12:18 | Outpatient (CLI) | payer MEDICARE, SELFPAY ==
--- NOTE | ~2023-06-24 | XR_ITS ---
Supine and upright views of the abdomen Clinical history: Abdominal distention Findings: Bowel gas pattern is nonspecific. No evidence for obstruction or free air. Cholecystectomy clips are present. No abnormal mass lesion or calcification is seen. Lumbosacral spinal fixation hard suresh is present. Impression: Nonspecific bowel gas pattern. Reviewed, dictated and finalized at [facility]. Impression: Nonspecific bowel gas pattern.
[2023-06-24 12:42] LABS: Hemoglobin 13.4 g/dL (12.0-15.0); Mean Corpuscular HGB Conc 31.9 g/dl (32-36); Mean Corpuscular Hemoglobin 28.3 pg (26-34); Mean Corpuscular Volume 88.6 fl (80-100); Mean Platelet Volume 9.6 fl (7.4-10.4); Platelet Count Result 330 k/mm3 (150-375); Red Blood Count 4.74 M/mm3 (4.2-5.4); Red Cell Distribution Width 13.5 % (11.5-14.5); White Blood Count 8.3 K/mm3 (4.5-10.0)
[2023-06-24 12:55] LABS: Alanine Aminotransferase 13 U/L (6-35); Albumin Level 4.2 g/dL (3.5-5.1); Alkaline Phosphatase 119 U/L (38-126); Anion Gap 5 mmol/L (8-16); Aspartate Amino Transferase 24 U/L (14-36); Bilirubin,Total 0.5 mg/dL (0.2-1.3); Blood Urea Nitrogen 9 mg/dL (7-17); Calcium 9.3 mg/dL (8.4-10.2); Carbon Dioxide 32 mmol/L (22-30); Chloride 102 mmol/L (98-107); Estimated Glomerular Filt Rate > 60; Glucose 87 mg/dL (65-110); Potassium 3.8 mmol/L (3.4-5.0); Sodium 139 mmol/L (137-145)
[2023-06-24 12:57] LABS: Appearance Urine Clear (Clear); Bacteria Urine None Seen /hpf; Bilirubin Urine Negative (Negative); Blood Urine Trace (Negative); Color Urine Yellow (Yellow); Glucose Urine UA Negative (Negative); Ketones Urine Negative (Negative); Leukocyte Esterase Ur Negative LEU/UL (Negative); Nitrate Urine Negative (Negative); Non Pathogenic Casts 0-2; Protein Urine Negative (Negative); RBC Urine 0-2 /hpf (0-2); Specific Grav Ur 1.007 (1.001-1.035); Squamous Epithelial Cell Urine None seen /hpf (Few); Urobilinogen Urine 0.2 mg/dL (<2.0); WBC Urine 0-5 /hpf; pH Urine 7.5 (5.0-9.0)
[2023-06-24 12:59] LABS: Add Urine Microscopic? YES
[2023-06-24 14:19] LABS: Erythrocyte Sedimentation Rate 53 mm/hr (0-20)
== END 2023-06-24 12:19 | disposition home or self-care (01) ==
PROVIDERS: PCP Internal Medicine; Visit Provider Nurse Practitioner Family
DX: K52.9 Noninfective gastroenteritis and colitis, unspecified (principal); R14.0 Abdominal distension (gaseous); R35.0 Frequency of micturition
CPT/HCPCS: 36415; 74018; 80053; 81001; 85027; 85652; 86140

== ENCOUNTER 2023-07-02 08:49 | Outpatient (NON) | payer MEDICARE, SELFPAY ==
[2023-07-08 18:48] LABS: Calprotectin, Stool 51 mcg/g
== END 2023-07-02 08:50 | disposition home or self-care (01) ==
PROVIDERS: PCP Internal Medicine; Visit Provider Nurse Practitioner Family
DX: R14.0 Abdominal distension (gaseous) (principal); K52.9 Noninfective gastroenteritis and colitis, unspecified
CPT/HCPCS: 83993

== ENCOUNTER 2023-08-28 13:37 | Outpatient (CLI) | payer MEDICARE, SELFPAY ==
[2023-08-28 14:26] LABS: Influenza A QL RT-PCR Negative (Negative); Influenza B QL RT-PCR Negative (Negative); RSV RNA, RT-PCR Negative (Negative); SARS-CoV-2 RNA PCR Negative (Negative)
== END 2023-08-28 13:38 | disposition home or self-care (01) ==
PROVIDERS: PCP Internal Medicine; Visit Provider Nurse Practitioner Family
DX: R06.02 Shortness of breath (principal); Z20.822 Contact with and (suspected) exposure to COVID-19
CPT/HCPCS: 87637

== ENCOUNTER 2023-09-25 13:07 | Outpatient (CLI) | payer MEDICARE, SELFPAY ==
--- NOTE | ~2023-09-25 | XR_ITS ---
EXAMINATION: XR chest 2V 09/25/2023 13:33 INDICATION: Cough. COPD. PROCEDURE: PA and lateral views of the chest COMPARISON: Comparison to multiple prior studies sequentially, with oldest reviewed study dated 07/04. FINDINGS: The lungs are clear. The cardiomediastinal silhouette is within normal limits. There are no pleural effusions. There is no pneumothorax suspected. There are surgical changes of the upper l umbar spine. IMPRESSION: 1: NO ACUTE CARDIOPULMONARY DISEASE. Reviewed, dictated and finalized at location B. EMNATION ENGINEER
[2023-09-25 13:58] LABS: Influenza A QL RT-PCR Negative (Negative); Influenza B QL RT-PCR Negative (Negative); RSV RNA, RT-PCR Negative (Negative); SARS-CoV-2 RNA PCR Negative (Negative)
== END 2023-09-25 13:08 | disposition home or self-care (01) ==
PROVIDERS: PCP Internal Medicine; Visit Provider Physician Assistant
DX: R05.9 Cough, unspecified (principal); R06.02 Shortness of breath; J44.9 Chronic obstructive pulmonary disease, unspecified
CPT/HCPCS: 71046; 87637

== ENCOUNTER → 2023-11-04 13:48 | Outpatient (CLI) | payer MEDICARE, SELFPAY ==
--- NOTE | ~2023-11-04 | CT_ITS ---
EXAMINATION: CT lung screening DATE: 11/04/2023 14:02 INDICATION: Personal history nicotine dependence, current smoker with 53 pack year history TECHNIQUE: Computed tomography (CT) of the chest was performed without intravenous contrast. The dose -length product (DLP) was 77.61 mGy-cm. Automated exposure control and iterative reconstruction techn ique were employed. COMPARISON: 11/01/2022 FINDINGS: There is moderate emphysema. There is a 6 mm nodule of the right lower lobe which is new si nce the comparison examination (image 73). There is a new 6 mm nodule in the left lower lobe on image 53. There are additional stable scattered 2 to 3 mm nodules throughout the lungs. No pleural effusio n or pneumothorax. No pathologically enlarged thoracic lymph nodes are identified. The heart size is normal. There is calcified coronary artery atherosclerosis. There is mild thoracic spondylosis. IMPRESSION: 1. Lung-RADS category 4A: Suspicious. Follow-up low-dose CT in three months is recommended. Reviewed, dictated and finalized at location [facility]. H LEADER
== END ==
PROVIDERS: PCP Nurse Practitioner Family; Visit Provider Nurse Practitioner Family
DX: Z12.2 Encounter for screening for malignant neoplasm of respiratory organs (principal); Z87.891 Personal history of nicotine dependence; R91.8 Other nonspecific abnormal finding of lung field
CPT/HCPCS: 71271

== ENCOUNTER 2023-12-09 08:36 | Outpatient (CLI) | payer MEDICARE, SELFPAY ==
[2023-12-09 20:37] LABS: Basophils Percent Auto 0.5 % (0.2-1.2); Eosinophils Absolute Auto 0.4 K/mm3 (0-0.3); Eosinophils Percent Auto 5.1 % (0-4.4); Hematocrit 45.1 % (37.0-47.0); Hemoglobin 14.2 g/dL (12.0-15.0); Immature Granulocyte Absolute 0.01 K/mm3 (0.00-0.031); Immature Granulocyte Percent A 0.1 % (0-0.5); Lymphocytes Absolute Auto 2.79 K/mm3 (0.9-3.2); Lymphocytes Percent Auto 34.9 % (18.3-44.2); Mean Corpuscular HGB Conc 31.5 g/dl (32-36); Mean Corpuscular Hemoglobin 28.3 pg (26-34); Mean Corpuscular Volume 89.8 fl (80-100); Mean Platelet Volume 10.9 fl (7.4-10.4); Monocytes Absolute Auto 0.7 K/mm3 (0.1-0.6); Monocytes Percent Auto 8.5 % (2.6-8.5); Neutrophils Absolute Auto 4.1 K/mm3 (1.3-6.7); Neutrophils Percent Auto 50.9 % (45.5-73.1); Platelet Count Result 233 k/mm3 (150-375); Red Blood Count 5.02 M/mm3 (4.2-5.4); Red Cell Distribution Width 14.6 % (11.5-14.5)
[2023-12-09 20:45] LABS: Vitamin D 25 Hydroxy 45.3 ng/mL
[2023-12-09 21:59] LABS: Alanine Aminotransferase 18 U/L (6-35); Albumin Level 4.2 g/dL (3.5-5.1); Alkaline Phosphatase 103 U/L (38-126); Anion Gap 4 mmol/L (4-12); Aspartate Amino Transferase 30 U/L (14-36); Bilirubin,Total 0.5 mg/dL (0.2-1.3); Blood Urea Nitrogen 15 mg/dL (7-17); Calcium 9.2 mg/dL (8.4-10.2); Carbon Dioxide 32 mmol/L (22-30); Chloride 102 mmol/L (98-107); Cholesterol 220 mg/dL (0-200); Estimated Glomerular Filt Rate > 60; Glucose 82 mg/dL (65-110); HDL Direct 58 mg/dL; Potassium 4.3 mmol/L (3.4-5.0); Sodium 138 mmol/L (137-145); Triglycerides 104 mg/dL (<150)
[2023-12-09 22:13] LABS: LDL Cholesterol Direct 132 mg/dL
[2023-12-09 22:26] LABS: Thyroid Stimulating Hormone 0.209 uIU/mL (0.465-4.680)
[2023-12-09 23:07] LABS: Hemoglobin A1C 5.6 % (<5.7)
[2023-12-18 07:23] LABS: Triiodothyronine T3 Free 2.9 pg/mL (2.3-4.2)
== END 2023-12-09 08:37 | disposition home or self-care (01) ==
PROVIDERS: PCP Internal Medicine; Visit Provider Nurse Practitioner
DX: Z78.0 Asymptomatic menopausal state (principal); R73.9 Hyperglycemia, unspecified; J44.9 Chronic obstructive pulmonary disease, unspecified; F41.9 Anxiety disorder, unspecified; F32.A Depression, unspecified; E03.9 Hypothyroidism, unspecified; I10 Essential (primary) hypertension
CPT/HCPCS: 36415; 80053; 80061; 82306; 83036; 84439; 84443; 84481; 85025

== ENCOUNTER 2024-02-03 11:07 | Outpatient (CLI) | payer MEDICARE, SELFPAY ==
--- NOTE | ~2024-02-03 | CT_ITS ---
CT Scan of the Chest without Contrast: Clinical Indication: Pulmonary nodule Technique: Contiguous sections were acquired throughout the chest without intravenous contrast. Dose reduction technique was used on this scan by utilizing automated exposure control and iterative recon struction technique. The dose-length product (DLP) was 55.03 mGy-cm. COMPARISON: 11/04/2023 Findings: There is no evidence of any significant mediastinal, hilar or axillary lymphadenopathy. There are ext ensive atherosclerotic calcifications of the aorta and coronary arteries. There is no evidence of pleural or pericardial effusion. There is moderate emphysema stable focal right apical scarring. 3 mm left upper lobe pulmonary nodule is decreased in size from prior exam. Previously noted 6 mm right lower lobe pulmonary nodule is res olved. Images through the upper abdomen reveal no abnormalities. Impression: 6 mm pulmonary nodules seen on prior exam are improved or resolved since prior exam, compatible with resolving infectious/inflammatory process. Moderate emphysema. Reviewed, dictated and finalized at [facility]. Impression: 6 mm pulmonary nodules seen on prior exam are improved or resolved since prior exam, compatible with resolving infectious/inflammatory process. Moderate emphysema.
== END 2024-02-03 11:08 | disposition home or self-care (01) ==
LOC: ANHIMG 11:09
PROVIDERS: PCP Internal Medicine; Visit Provider Physician Assistant
DX: R91.1 Solitary pulmonary nodule (principal); J43.9 Emphysema, unspecified
CPT/HCPCS: 71250

== ENCOUNTER 2024-02-04 07:16 | Outpatient (CLI) | payer MEDICARE, SELFPAY ==
[2024-02-04 07:58] LABS: Cholesterol 221 mg/dL (0-200); HDL Direct 71 mg/dL; Triglycerides 74 mg/dL (<150)
[2024-02-04 08:09] LABS: LDL Cholesterol Direct 134 mg/dL
[2024-02-04 09:01] LABS: Hemoglobin A1C 5.4 % (<5.7)
[2024-02-05 16:09] LABS: Triiodothyronine T3 Free 2.5 pg/mL (2.3-4.2)
[2024-02-14 14:43] LABS: Apolipoprotein B 111 mg/dL
== END 2024-02-04 07:17 | disposition home or self-care (01) ==
LOC: ANHLAB 07:25
PROVIDERS: PCP Internal Medicine; Visit Provider Nurse Practitioner
DX: E03.9 Hypothyroidism, unspecified (principal); E78.5 Hyperlipidemia, unspecified; R73.9 Hyperglycemia, unspecified; Z78.0 Asymptomatic menopausal state; I10 Essential (primary) hypertension
CPT/HCPCS: 36415; 80061; 82172; 83036; 84439; 84443; 84481

== ENCOUNTER 2024-02-06 14:26 | Outpatient (CLI) | payer MEDICARE, SELFPAY ==
[2024-02-06 19:53] LABS: Appearance Urine Clear (Clear); Bilirubin Urine Negative (Negative); Blood Urine Negative (Negative); Color Urine Yellow (Yellow); Glucose Urine UA Negative (Negative); Ketones Urine Negative (Negative); Leukocyte Esterase Ur Negative LEU/UL (Negative); Nitrate Urine Negative (Negative); Protein Urine Negative (Negative); Specific Grav Ur 1.007 (1.001-1.035); Urobilinogen Urine 0.2 mg/dL (<2.0); pH Urine 7.5 (5.0-9.0)
[2024-02-06 19:58] LABS: Add Urine Microscopic? NO
== END 2024-02-06 14:27 | disposition home or self-care (01) ==
LOC: ANHGOSHLAB 14:28
PROVIDERS: PCP Internal Medicine; Visit Provider Nurse Practitioner
DX: R30.0 Dysuria (principal)
CPT/HCPCS: 81003

== ENCOUNTER 2024-04-08 10:38 | Outpatient (CLI) | payer MEDICARE, SELFPAY ==
--- NOTE | ~2024-04-08 | MM_ITS ---
EXAMINATION: MM screening erik BI w thomas HISTORY: Screening TECHNIQUE: Craniocaudal and mediolateral oblique 3-D tomosynthesis images were obtained and synthetic 2-D images were generated. CAD analysis was submitted and interpreted. COMPARISON: Comparison to multiple prior studies sequentially, with oldest reviewed study dated 05/25. BREAST PARENCHYMAL COMPOSITION: Not dense: There are scattered areas of fibroglandular density. FINDINGS: Stable left periareolar left breast mass, presumably benign. There is no evidence of suspic ious mass, calcification, or architectural distortion to suggest malignancy in either breast. There h as been no suspicious interval change. IMPRESSION: 1. No mammographic evidence of malignancy. 2. Recommend routine screening mammography in one year. BI-RADS Category 2: Benign finding(s). Reviewed, dictated and finalized at location B.
== END 2024-04-08 10:39 ==
LOC: MICIMG 10:39
PROVIDERS: PCP Internal Medicine; Visit Provider Nurse Practitioner
DX: Z12.31 Encounter for screening mammogram for malignant neoplasm of breast (principal)
CPT/HCPCS: 77063; 77067

== ENCOUNTER 2024-11-11 08:47 | Outpatient (CLI) | payer MEDICARE, SELFPAY ==
--- OUTSIDE RECORDS SUMMARY | 2024-11-11 09:09 | XMS_ITS | Clinical Summary ---
Author Organization [facility] e Address [address] [place] [address] [place] [address] Care Team Providers Care Hydraulic Auto Jack Mechanic Name Role Phone Kevin Kelly DO Primary Care Provider + Allergies Active Allergy Reactions Criticality Noted Date Comments Azithromycin Abdominal Pain Low 11/01/2015 Ciprofloxacin Abdominal Pain Low 11/01/2015 Clindamycin Abdominal Pain Low 11/01/2015 Penicillins Rash Low 02/11/2013 Medications celecoxib (CELEBREX) 200 mg capsuleIndications :Degenerative lumbar spinal stenosis,Midline low back pain, with sciatica presence unspecified Take 1 Cap (200 mg) by mouth 2 times daily. 60 Cap 2 5 Active traMADol (ULTRAM) 50 mg tabletIndications: Degenerative lumbar spinal stenosis TAKE 1 TABLET EVERY 6 HOURS NEEDED FOR PAIN. 90 Tablet 4 6 Active valACYclovir (VALTREX) 1 gram tabletIndications: Recurrent cold sores Take 1 Tablet (1,000 mg) by mouth 2 times daily. 14 Tablet 1 6 Active betamethasone dipropionate (DIPROSONE) 0.05 % CreamIndications:C ontact dermatitis, unspecified contact dermatitis type, unspecified trigger Apply to affected area 2 times daily. 15 Gram 0 6 Active mometasone-formote rol (DULERA) 200-5 mcg/actuation inhalerIndications :Acute exacerbation of chronic obstructive pulmonary disease (CMS/HCC),Simple chronic bronchitis (CMS/HCC) Take 2 Puffs by inhalation 2 times daily. 13 Gram 1 7 Active albuterol HFA 90 mcg inhaler INHALE 2 PUFFS EVERY 6 HOURS NEEDED FOR SHORTNESS OF BREATH... 8.5 Gram 5 7 Active sertraline (ZOLOFT) 100 mg tablet TAKE ONE TABLET DAILY. 30 Tablet 5 7 Active amLODIPine (NORVASC) 5 mg tablet TAKE ONE TABLET DAILY 30 Tablet 6 7 Active hydroCHLOROthiazid e 25 mg tablet Take 1 Tablet (25 mg) by mouth daily. 30 Tablet 5 7 Active potassium chloride (K-DUR) 10 mEq Extended Release tabletIndications: Hypokalemia Take 1 Tablet (10 mEq) by mouth daily. 30 Tablet 5 7 Active mometasone-formote rol (DULERA) 200-5 mcg/actuation inhalerIndications :Simple chronic bronchitis (CMS/HCC) Take 2 Puffs by inhalation 2 times daily. 8.8 Gram 2 8 Active fluticasone (FLONASE) 50 mcg/spray [place], SuspensionIndicati ons:Perennial allergic rhinitis Administer 2 Sprays in each nostril daily. 16 Gram 2 8 Active Blood Pressure Monitor KitIndications:Ess ential hypertension Use blood pressure monitor daily as needed. 1 Kit 8 Active levothyroxine 100 mcg tabletIndications: Acquired hypothyroidism Take 1 Tablet (100 mcg) by mouth daily. 30 Tablet 5 8 Active gabapentin (NEURONTIN) 300 mg capsule TAKE 1 CAPSULE THREE TIMES A DAY 90 Capsule 5 8 Active diazePAM (VALIUM) 5 mg tablet TAKE 1 TABLET EVERY 8 HOURS NEEDED 60 Tablet 2 8 Active metoprolol tartrate (LOPRESSOR) 50 mg tablet TAKE ONE TABLET TWICE DAILY 60 Tablet 5 8 Active HYDROcodone-acetam inophen (NORCO) 7.5-325 mg TabletIndications: Degenerative lumbar spinal stenosis TAKE 1 TABLET EVERY 4 HOURS NEEDED FOR PAIN. MAXIMUM OF 6 TABLETS DAILY. 60 Tablet 8 Active SPIRIVA WITH HANDIHALER 18 mcg capsule INHALE THE CONTENTS OF 1 CAPSULE DAILY DIRECTED IN THE PACKAGE 90 Capsule 1 8 Active Active Problems Problem Noted Date Diagnosed Date Acute exacerbation of chronic obstructive pulmon viktoriya disease 10/05/2016 Acute rhinosinusitis 10/05/2016 Seasonal allergic rhinitis 12/03/2015 Overview (12/03/2015): Suzyteartur in the evening; will see her ophth in [place] re: eye symptoms Recurrent cold sores 12/03/2015 Weight loss, unintentional 10/06/2015 Acquired hypothyroidism 09/30/2015 Rhinosinusitis 07/18/2015 Cough 07/18/2015 Lumbago 03/19/2015 Neurogenic claudication due to lumbar spinal daisy nosis 02/22/2015 Chronic pain 01/27/2015 Depression with anxiety 01/27/2015 Direct inguinal hernia 09/20/2014 Overview (09/20/2014): right Acute exacerbation of chroni c obstructive pulmonary disease (COPD) 07/13/2014 Right otitis media 07/13/2014 Headache 06/03/2014 Acute bronchitis 06/03/2014 Need for influenza vaccination 06/03/2014 History of hypokalemia 05/04/2014 Contact dermatitis 04/19/2014 Polyarthritis 10/13/2013 Neuropathy of both feet 10/13/2013 Impacted cerumen 10/13/2013 Current smoker 10/13/2013 Flexor tenosynovitis of thumb 10/13/2013 Need for prophylactic vaccin ation and inoculation against influenza 06/15/2013 COPD (chronic obstructive pulmonary disease) 08/2013 Hypertension 02/11/2013 Degenerative lumbar spinal stenosis 02/11/2013 Degenerative disc disease, lumbar 02/11/2013 Immunizations Immunization Administration Dates Next Due (PREVNAR 13)(6 WKS UP) PNEUM OCOCCAL CONJUGATE (PCV13) 0.5 ML, IM 06/15/2013 INFLUENZA VACCINE QUADRIVALENT 3 YR UP PF IM 10/2013 Influenza Vaccine Split 3+ Yrs IM 06/15/2013 Social History Tobacco Use Types Packs/Day Years Used Date Smoking Tobacco: Every Day Cigarettes 1 30 Smokeless Tobacco: Never Tobacco Cessation:Ready to Q uit: No; Counseling Given: Yes Alcohol Use Standard Drinks/Week Comments Not Asked 0 (1 standard drink = 0.6 oz pur e alcohol) Comments No Sex and Gender Information Value Date Recorded Sex Assigned at Not on file Legal Sex Female 8:57 AM CDT Gender Identity Not on file Sexual Orientation Not on file Last Filed Vital Signs Vital Sign Reading Time Taken Comments Blood Pressure 116/70 10/28/2017 10:41 AM DRENCHER Pulse 63 10/28/2017 10:41 AM DRENCHER Temperature 36.7 C (98 F) 10/28/2017 10:41 AM DRENCHER Respiratory Rate 17 10/05/2016 11:54 AM DRENCHER Oxygen Saturation 97% 10/28/2017 10:41 AM DRENCHER Inhaled Oxygen Concentration - - Weight 44.8 kg (98 lb 12.8 oz) 10/28/2017 10:41 AM DRENCHER Height 149.9 cm (4' 11 ) 10/28/2017 10:41 AM DRENCHER Body Mass Index 19.96 10/28/2017 10:41 AM DRENCHER Plan of Treatment Health Maintenance Due Date Last Done Comments DTAP/TDAP/TD VACCINES (1 - Tdap) 1973 COLORECTAL SCREENING 1999 Colorectal Cancer Screening 1999 FIT-DNA Q 3 years 1999 FIT/FOBT Q 1 year 1999 Flex Sig/CT Colonography Q 5 years 1999 ZOSTER VACCINE (1 of 2) 2004 PNEUMOCOCCAL VACCINE 50+ YEA RS (2 of 2 - PPSV23) 06/15/2014 06/15/2013 BREAST CANCER SCREENING 12/31/2017 01/01/20 17 (Previously completed) OSTEOPOROSIS SCREENING 2019 INFLUENZA VACCINE (#1) 2024 06/03/2014, 2012 RSV VACCINE (60+ or ) (1 - 1-dose 75+ series) 2029 Care Teams Hydraulic Auto Jack Mechanic Relationship Specialty Start Date End Date Kevin Kelly DO PCP - General Hospitalists 02/03/13
--- OUTSIDE RECORDS SUMMARY | 2024-11-11 09:09 | XMS_ITS | Encounter Summary ---
Author Organization [facility] Address [address] [place] [address] Care Team Providers Care Barker Peeler Name Role Phone Kevin Kelly DO Primary Care Provider + Reason for Visit * Reason Comments Medication Refill Encounter Details Date Type Department Care Team (Late st Contact Info) Description 10/19/2017 Refill [facility] Medicine [address] [address] Kevin Kelly DO [address] [facility] 200 [place] [address] Degenerative lumbar spinal stenosis Social History Tobacco Use Types Packs/Day Years Used Date Smoking Tobacco: Every Day Cigarettes 1 30 Smokeless Tobacco: Never Alcohol Use Standard Drinks/Week Comments Not Asked 0 (1 standard drink = 0.6 oz pur e alcohol) Comments No Sex and Gender Information Value Date Recorded Sex Assigned at Not on file Legal Sex Female 8:57 AM CDT Gender Identity Not on file Sexual Orientation Not on file documented as of this encounter Plan of Treatment Not on file documented as of this encounter Visit Diagnoses Diagnosis Degenerative lumbar spinal stenosis Spinal stenosis, lumbar region, without neurogenic claudication documented in this encounter Care Teams Barker Peeler Relationship Specialty Start Date End Date Kevin Kelly DO PCP - General Hospitalists 02/03/13 documented as of this encounter
--- OUTSIDE RECORDS SUMMARY | 2024-11-11 09:10 | XMS_ITS | Encounter Summary ---
Author Organization [facility] Address [address] [place] [address] Care Team Providers Care Cook Chef Name Role Phone Kevin Kelly DO Primary Care Provider + Reason for Visit * Reason Comments Medication Refill Encounter Details Date Type Department Care Team (Late st Contact Info) Description 08/19/2017 Refill [facility] Medicine [address] [address] Kevin Kelly DO [address] [facility] 200 [place] [address] Degenerative lumbar spinal stenosis Social [...] claudication documented in this encounter Care Teams Cook Chef Relationship Specialty Start Date End Date Kevin Kelly DO PCP - General Hospitalists 02/03/13 documented as of this encounter
[2024-11-11 14:03] LABS: Cholesterol 193 mg/dL (0-200); HDL Direct 62 mg/dL; Triglycerides 84 mg/dL (<150)
[2024-11-11 14:14] LABS: LDL Cholesterol Direct 88 mg/dL
[2024-11-11 16:13] LABS: Rheumatoid Factor < 12.0 IU/ML (<12)
[2024-11-13 08:28] LABS: ANA Cascade Screen NEGATIVE (NEGATIVE)
== END 2024-11-11 08:48 | disposition home or self-care (01) ==
PROVIDERS: PCP Internal Medicine; Visit Provider Nurse Practitioner
DX: M25.50 Pain in unspecified joint (principal); I10 Essential (primary) hypertension; E78.5 Hyperlipidemia, unspecified
CPT/HCPCS: 36415; 80061; 82172; 86038; 86225; 86235; 86364; 86430

== ENCOUNTER 2025-01-18 14:58 | Emergency (ER) | payer MEDICARE, SELFPAY ==
--- OUTSIDE RECORDS SUMMARY | 2025-01-18 15:02 | XMS_ITS | Encounter Summary ---
Author Organization [facility] Address [address] [place] [address] Care Team Providers Care Ware Dresser Name Role Phone Kevin Kelly DO Primary Care Provider + Reason for Visit * Reason Comments Medication Refill Encounter Details Date Type Department Care Team (Late st Contact Info) Description 10/19/2017 Refill [facility] Medicine [address] [address] Kevin Kelly DO [address] [facility] 200 [place] [address] Degenerative lumbar spinal stenosis Social [...] claudication documented in this encounter Care Teams Ware Dresser Relationship Specialty Start Date End Date Kevin Kelly DO PCP - General Hospitalists 02/03/13 documented as of this encounter
--- OUTSIDE RECORDS SUMMARY | 2025-01-18 15:02 | XMS_ITS | Encounter Summary ---
Author Organization [facility] Address [address] [place] [address] Care Team Providers Care Wire Spring Relay Adjuster Name Role Phone Kevin Kelly DO Primary Care Provider + Reason for Visit * Reason Comments Medication Refill Encounter Details Date Type Department Care Team (Late st Contact Info) Description 08/19/2017 Refill [facility] Medicine [address] [address] Kevin Kelly DO [address] [facility] 200 [place] [address] Degenerative lumbar spinal stenosis Social [...] claudication documented in this encounter Care Teams Wire Spring Relay Adjuster Relationship Specialty Start Date End Date Kevin Kelly DO PCP - General Hospitalists 02/03/13 documented as of this encounter
--- OUTSIDE RECORDS SUMMARY | 2025-01-18 15:02 | XMS_ITS | Clinical Summary ---
Author Organization [facility] e Address [address] [place] [address] [place] [address] Care Team Providers Care Hollow Core Door Frame Assembler Name Role Phone Kevin Kelly DO Primary [...] 2 8 Active fluticasone (FLONASE) 50 mcg/spray [place], SuspensionIndicati ons:Perennial allergic rhinitis Administer 2 Sprays [...] the evening; will see her ophth in [place] re: eye symptoms Recurrent cold sores 12/03/2015 [...] Comments Blood Pressure 116/70 10/28/2017 10:41 AM WOOD GRINDER OPERATOR Pulse 63 10/28/2017 10:41 AM WOOD GRINDER OPERATOR Temperature 36.7 C (98 F) 10/28/2017 10:41 AM WOOD GRINDER OPERATOR Respiratory Rate 17 10/05/2016 11:54 AM WOOD GRINDER OPERATOR Oxygen Saturation 97% 10/28/2017 10:41 AM WOOD GRINDER OPERATOR Inhaled Oxygen Concentration - - Weight 44.8 kg (98 lb 12.8 oz) 10/28/2017 10:41 AM WOOD GRINDER OPERATOR Height 149.9 cm (4' 11 ) 10/28/2017 10:41 AM WOOD GRINDER OPERATOR Body Mass Index 19.96 10/28/2017 10:41 AM WOOD GRINDER OPERATOR Plan of Treatment Health Maintenance Due Date [...] - 1-dose 75+ series) 2029 Care Teams Hollow Core Door Frame Assembler Relationship Specialty Start Date End Date Kevin Kelly DO PCP - General Hospitalists 02/03/13
[2025-01-18 15:16] VITALS: BP 126/74; PULSE 80; RESP 18; TEMP 36.2; O2SAT 93
--- NOTE | 2025-01-18 15:41 | ED_ITS ---
HPI - Skin/Abscess/Foreign Bdy General Chief complaint: Skin/Abscess/Foreign Body Stated complaint: Rash down right side-joint pain Time Seen by Provider: 01/18/25 15:41 Focused HPI: This is a 69 year old female that presents to the ER for a rash that started 2 days ago. Reports the area is painful. The pain started prior to rash erupting. Reports right flank, lower abdominal rash. GENERAL: Well-appearing, well-nourished, and in no acute distress. HEAD: Normocephalic, atraumatic. CHEST: No respiratory distress. HEART: Regular rate NEURO: Alert and oriented x3. Patient screened in triage and initial orders placed. Additional care and disposition to be based upon diagnostic testing and treatment. Related Data Home Medications Medication Instructions Recorded Confirmed Last Taken Type multivitamin 1 tablet PO DAILY 05/17/22 09/04/24 Unknown History Allergies Allergy/AdvReac Type Severity Reaction Status Date / Time ciprofloxacin Allergy Intermediate sob and Verified 01/18/25 15:00 nausea clindamycin Allergy Intermediate sob and Verified 01/18/25 15:00 nausea Penicillins Allergy Intermediate sob and Verified 01/18/25 15:00 nausea amitriptyline Allergy Mild Nausea Verified 01/18/25 15:00 escitalopram Allergy Mild nauseated Verified 01/18/25 15:00 shellfish derived AdvReac Hives Verified 01/18/25 15:00 Review of Systems Review of Systems: All systems reviewed & are unremarkable except as noted in HPI and below PMFSH Past Medical History Medical History Frequent urination Bloating Headache Colitis Arthritis Allergies Hypothyroid Hypertension Depression COPD (chronic obstructive pulmonary disease) Anxiety Surgical History Surgical History Previous back surgery History of bladder suspension procedure H/O total hysterectomy 1982 Status post cholecystectomy Family History Family History Sibling Depression Family history of diabetes mellitus in first degree relative Cancer Hypertension Thyroid disorder Mother Hypertension Cancer Depression Heart disease Thyroid disorder Father Family history of coronary artery disease Hypertension Heart disease Depression Grandparent Heart disease Hypertension Social History Social History Smoking packs per day: 1 Smoking cigarettes per day: 20.0 Years smoked: 53 Smoking pack-years: 53.00 Smoking status: Current every day smoker Tobacco type: cigarettes Additional smoking assessment comments: Currently smoking 1/2ppd. Alcohol intake: never Substance use: never Substance use type: does not use Lack of Transportation: No Lack of Food: Sometimes True Current Housing: I Have Housing Concerned About Future Housing: No Difficulty Paying Gas/Electric Bills: Decline to Answer Difficulty Paying for Meds: YES Currently Unemployed: No Education: Associate Degree Difficulty w/ Childcare or Family Care: No Spiritual care concerns: No Exam Narrative: GENERAL: Well-appearing, well-nourished, and in no acute distress. HEAD: Normocephalic, atraumatic. EYES: EOMI. EXTREMITIES: Normal range of motion. No edema. SKIN: Warm, dry. Vesicular rash on an erythematous base in a dermatomal pattern to the right flank and into the abdomen NEURO: No focal deficits. Alert and oriented x3. PSYCH: Normal mood and affect Course Vital Signs Vital signs: Vital Signs Temperature 97.1 F L 01/18/25 15:16 Pulse Rate 80 01/18/25 15:16 Respiratory Rate 18 01/18/25 15:16 Blood Pressure 126/74 01/18/25 15:16 Pulse Oximetry 93 01/18/25 15:16 Temperature 97.1 F L 01/18/25 15:16 Pulse Rate 80 01/18/25 15:16 Respiratory Rate 18 01/18/25 15:16 Blood Pressure 126/74 01/18/25 15:16 Pulse Oximetry 93 01/18/25 15:16 MDM - Skin/Abscess/Foreign Bdy MDM Narrative Medical decision making narrative: patient presents to the ER for a rash consistent with shingles. Will be treated with Valtrex Differential Diagnosis Differential diagnosis: Likely viral exanthem, herpes zoster, allergic reaction to drug, cellulitis, eczema, impetigo and contact dermatitis Critical Care Time Critical Care Time Critical Care Time: No Discharge Plan Discharge Clinical Impression: Shingles Qualifiers: Herpes zoster complications: without complications Qualified Code(s): B02.9 - Zoster without complications Patient Disposition: Home Condition: Stable Instructions: Shingles (ED) Additional Instructions: Return to the emergency department if you experience fever, redness and swelling of your wounds, abnormal drainage from your wounds, or any other symptoms that are concerning to you Take Valacyclovir as prescribed. Tylenol or Ibuprofen as needed for pain Follow-up with your primary care doctor Patient Language: Danish Prescriptions: New valacyclovir 1 gram tablet 1,000 mg PO Q8H 10 Days Qty: 30 0RF No Action multivitamin Tablet 1 tablet PO DAILY gabapentin 300 mg capsule 300 mg PO BID Qty: 180 1RF ipratropium bromide 0.02 % solution 2.5 ml inhalation Q6H PRN (Reason: shortness of breath or wheezing) Qty: 300 5RF sertraline 50 mg tablet 50 mg PO DAILY Qty: 90 1RF lisinopril 10 mg tablet 10 mg PO DAILY Qty: 90 1RF fluticasone propion-salmeterol [Advair Diskus] 250-50 mcg/dose blister with device 1 inh inhalation BID 30 Days Qty: 60 5RF Rx Instructions: Rinse and spit albuterol sulfate 90 mcg/actuation HFA aerosol inhaler See Rx Instructions .ROUTE .COMPLEX Qty: 8.5 3RF Dose Instruction: INHALE 2 PUFFS EVERY 4-6 HOURS NEEDED FOR SHORTNESS OF BREATH Rx Instructions: INHALE 2 PUFFS EVERY 4-6 HOURS NEEDED FOR SHORTNESS OF BREATH levothyroxine 88 mcg tablet 88 mcg PO DAILY Qty: 90 0RF Rx Instructions: NEEDS APPOINTMENT FOR FURTHER REFILLS Trelegy Ellipta 100-62.5-25 mcg blister with device 1 inh inhalation Q24H Qty: 60 11RF Rx Instructions: Rinse and spit loratadine [Claritin] 10 mg tablet 10 mg PO DAILY Qty: 90 1RF azithromycin 250 mg tablet See Rx Instructions PO .COMPLEX Qty: 6 0RF Rx Instructions: For 250 mg dose pack: take 500 mg today (day 1), then 250 mg for 4 days (days 2-5) PO prednisone 10 mg tablet 10 mg PO DIRECTED Qty: 30 0RF Rx Instructions: Take 4 tablets by mouth daily for 3 days, then 3 tablets for 3 days, 2 tablets for 3 days, 1 tablet for 3 days metoprolol tartrate 50 mg tablet 50 mg PO BID Qty: 180 1RF amlodipine 10 mg tablet 10 mg PO DAILY Qty: 90 1RF Follow-up/Referrals: Parveen Ayala, [Primary Care Provider] -
--- OUTSIDE RECORDS SUMMARY | 2025-01-18 15:58 | XMS_ITS | Encounter Summary ---
Author Organization [facility] Address [address] [place] [address] Care Team Providers Care Excelsior Machine Feeder Name Role Phone Kevin Kelly DO Primary Care Provider + Reason for Visit * Reason Comments Medication Refill Encounter Details Date Type Department Care Team (Late st Contact Info) Description 08/19/2017 Refill [facility] Medicine [address] [address] Kevin Kelly DO [address] [facility] 200 [place] [address] Degenerative lumbar spinal stenosis Social [...] claudication documented in this encounter Care Teams Excelsior Machine Feeder Relationship Specialty Start Date End Date Kevin Kelly DO PCP - General Hospitalists 02/03/13 documented as of this encounter
--- OUTSIDE RECORDS SUMMARY | 2025-01-18 15:58 | XMS_ITS | Clinical Summary ---
Author Organization [facility] e Address [address] [place] [address] [place] [address] Care Team Providers Care Framing Specialist Name Role Phone Kevin Kelly DO Primary [...] 2 8 Active fluticasone (FLONASE) 50 mcg/spray [place], SuspensionIndicati ons:Perennial allergic rhinitis Administer 2 Sprays [...] the evening; will see her ophth in [place] re: eye symptoms Recurrent cold sores 12/03/2015 [...] Comments Blood Pressure 116/70 10/28/2017 10:41 AM BUSINESS LAW PROFESSOR Pulse 63 10/28/2017 10:41 AM BUSINESS LAW PROFESSOR Temperature 36.7 C (98 F) 10/28/2017 10:41 AM BUSINESS LAW PROFESSOR Respiratory Rate 17 10/05/2016 11:54 AM BUSINESS LAW PROFESSOR Oxygen Saturation 97% 10/28/2017 10:41 AM BUSINESS LAW PROFESSOR Inhaled Oxygen Concentration - - Weight 44.8 kg (98 lb 12.8 oz) 10/28/2017 10:41 AM BUSINESS LAW PROFESSOR Height 149.9 cm (4' 11 ) 10/28/2017 10:41 AM BUSINESS LAW PROFESSOR Body Mass Index 19.96 10/28/2017 10:41 AM BUSINESS LAW PROFESSOR Plan of Treatment Health Maintenance Due Date [...] - 1-dose 75+ series) 2029 Care Teams Framing Specialist Relationship Specialty Start Date End Date Kevin Kelly DO PCP - General Hospitalists 02/03/13
--- OUTSIDE RECORDS SUMMARY | 2025-01-18 15:58 | XMS_ITS | Encounter Summary ---
Author Organization [facility] Address [address] [place] [address] Care Team Providers Care Cart Driver Name Role Phone Kevin Kelly DO Primary Care Provider + Reason for Visit * Reason Comments Medication Refill Encounter Details Date Type Department Care Team (Late st Contact Info) Description 10/19/2017 Refill [facility] Medicine [address] [address] Kevin Kelly DO [address] [facility] [address] [place] [address] Degenerative lumbar spinal stenosis Social [...] claudication documented in this encounter Care Teams Cart Driver Relationship Specialty Start Date End Date Kevin Kelly DO PCP - General Hospitalists 02/03/13 documented as of this encounter
== END 2025-01-18 16:00 | disposition home or self-care (01) ==
LOC: ANHED 15:56
PROVIDERS: Emergency Provider Physician Assistant; PCP Internal Medicine
DX: B02.9 Zoster without complications (principal); M19.90 Unspecified osteoarthritis, unspecified site; E03.9 Hypothyroidism, unspecified; I10 Essential (primary) hypertension; F32.A Depression, unspecified; J44.9 Chronic obstructive pulmonary disease, unspecified; F41.9 Anxiety disorder, unspecified
CPT/HCPCS: 99283

== ENCOUNTER 2025-01-29 11:52 | Outpatient (CLI) | payer MEDICARE, SELFPAY ==
--- OUTSIDE RECORDS SUMMARY | 2025-01-29 11:55 | XMS_ITS | Clinical Summary ---
Author Organization [facility] e Address [address] [place] [address] [place] [address] Care Team Providers Care Hospital Chief Financial Officer Name Role Phone Kevin Kelly DO Primary [...] 2 8 Active fluticasone (FLONASE) 50 mcg/spray [place], SuspensionIndicati ons:Perennial allergic rhinitis Administer 2 Sprays [...] the evening; will see her ophth in [place] re: eye symptoms Recurrent cold sores 12/03/2015 [...] Comments Blood Pressure 116/70 10/28/2017 10:41 AM FAIRGROUND OPERATOR Pulse 63 10/28/2017 10:41 AM FAIRGROUND OPERATOR Temperature 36.7 C (98 F) 10/28/2017 10:41 AM FAIRGROUND OPERATOR Respiratory Rate 17 10/05/2016 11:54 AM FAIRGROUND OPERATOR Oxygen Saturation 97% 10/28/2017 10:41 AM FAIRGROUND OPERATOR Inhaled Oxygen Concentration - - Weight 44.8 kg (98 lb 12.8 oz) 10/28/2017 10:41 AM FAIRGROUND OPERATOR Height 149.9 cm (4' 11) 10/28/2017 10:41 AM FAIRGROUND OPERATOR Body Mass Index 19.96 10/28/2017 10:41 AM FAIRGROUND OPERATOR Plan of Treatment Health Maintenance Due [...] - 1-dose 75+ series) 2029 Care Teams Hospital Chief Financial Officer Relationship Specialty Start Date End Date Kevin Kelly DO PCP - General Hospitalists 02/03/13
--- OUTSIDE RECORDS SUMMARY | 2025-01-29 11:55 | XMS_ITS | Encounter Summary ---
Author Organization [facility] Address [address] [place] [address] Care Team Providers Care Press Feeder Name Role Phone Kevin Kelly DO Primary Care Provider + Reason for Visit * Reason Comments Medication Refill Encounter Details Date Type Department Care Team (Late st Contact Info) Description 10/19/2017 Refill [facility] Medicine [address] [address] Kevin Kelly DO [address] [facility] 200 [place] [address] Degenerative lumbar spinal stenosis Social [...] claudication documented in this encounter Care Teams Press Feeder Relationship Specialty Start Date End Date Kevin Kelly DO PCP - General Hospitalists 02/03/13 documented as of this encounter
--- OUTSIDE RECORDS SUMMARY | 2025-01-29 11:55 | XMS_ITS | Encounter Summary ---
Author Organization [facility] Address [address] [place] [address] Care Team Providers Care Assembly Supervisor Name Role Phone Kevin Kelly DO Primary Care Provider + Reason for Visit * Reason Comments Medication Refill Encounter Details Date Type Department Care Team (Late st Contact Info) Description 08/19/2017 Refill [facility] Medicine [address] [address] Kevin Kelly DO [address] [facility] 200 [place] [address] Degenerative lumbar spinal stenosis Social [...] claudication documented in this encounter Care Teams Assembly Supervisor Relationship Specialty Start Date End Date Kevin Kelly DO PCP - General Hospitalists 02/03/13 documented as of this encounter
[2025-01-29 16:35] LABS: Basophils Absolute Auto 0.1 K/mm3 (0.0-0.1); Basophils Percent Auto 0.8 % (0.2-1.2); Eosinophils Absolute Auto 0.2 K/mm3 (0-0.3); Eosinophils Percent Auto 2.3 % (0-4.4); Hematocrit 47.6 % (37.0-47.0); Hemoglobin 15.5 g/dL (12.0-15.0); Immature Granulocyte Absolute 0.02 K/mm3 (0.00-0.031); Immature Granulocyte Percent A 0.2 % (0-0.5); Lymphocytes Absolute Auto 2.89 K/mm3 (0.9-3.2); Lymphocytes Percent Auto 34.3 % (18.3-44.2); Mean Corpuscular HGB Conc 32.6 g/dl (32-36); Mean Corpuscular Hemoglobin 28.9 pg (26-34); Mean Corpuscular Volume 88.8 fl (80-100); Mean Platelet Volume 9.9 fl (7.4-10.4); Monocytes Absolute Auto 0.7 K/mm3 (0.1-0.6); Monocytes Percent Auto 8.2 % (2.6-8.5); Neutrophils Absolute Auto 4.6 K/mm3 (1.3-6.7); Neutrophils Percent Auto 54.2 % (45.5-73.1); Platelet Count Result 231 k/mm3 (150-375); Red Blood Count 5.36 M/mm3 (4.2-5.4); Red Cell Distribution Width 15.9 % (11.5-14.5); White Blood Count 8.4 K/mm3 (4.5-10.0)
[2025-01-29 18:41] LABS: Free T4 Free Thyroxine 1.61 ng/dL (0.78-2.19); Vitamin D 25 Hydroxy 23.9 ng/mL
[2025-01-29 20:00] LABS: Alanine Aminotransferase 16 U/L (6-35); Albumin Level 4.3 g/dL (3.5-5.1); Alkaline Phosphatase 95 U/L (38-126); Anion Gap 7 mmol/L (4-12); Aspartate Amino Transferase 48 U/L (14-36); Bilirubin,Total 0.4 mg/dL (0.2-1.3); Blood Urea Nitrogen 12 mg/dL (7-17); Calcium 9.7 mg/dL (8.4-10.2); Carbon Dioxide 36 mmol/L (22-30); Chloride 94 mmol/L (98-107); Cholesterol 251 mg/dL (0-200); Estimated Glomerular Filt Rate > 60; Glucose 103 mg/dL (65-110); HDL Direct 75 mg/dL; Potassium 3.5 mmol/L (3.4-5.0); Sodium 137 mmol/L (137-145); Triglycerides 102 mg/dL (<150)
[2025-01-29 20:11] LABS: LDL Cholesterol Direct 115 mg/dL
== END 2025-01-29 11:53 | disposition home or self-care (01) ==
LOC: ANHGOSHLAB 11:53
PROVIDERS: PCP Nurse Practitioner; Visit Provider Nurse Practitioner
DX: E78.5 Hyperlipidemia, unspecified (principal); I10 Essential (primary) hypertension; E03.9 Hypothyroidism, unspecified
CPT/HCPCS: 36415; 80053; 80061; 82306; 84439; 84443; 85025

== ENCOUNTER 2025-02-18 09:05 | Outpatient (CLI) | payer MEDICARE, SELFPAY ==
--- NOTE | ~2025-02-18 | CT_ITS ---
EXAMINATION: CT lung screening DATE: 02/18/2025 09:21 INDICATION: Personal history of nicotine dependence TECHNIQUE: Computed tomography (CT) of the chest was performed without intravenous contrast. Addition al 3D reconstructions utilizing coronal maximum intensity projection (MIP) were performed. Automated exposure control and iterative reconstruction technique were employed. The dose-length product was 81 .20 mGy-cm. COMPARISON: 02/03/2024 FINDINGS: Moderate emphysema with stable appearance of minimal right apical pleural-parenchymal scarring. There are a few unchanged scattered bilateral <4 mm pulmonary nodules with upper lobe predominance. No new or enlarging pulmonary nodules. No pneumonia, pulmonary edema or pleural effusion. Heart size is nor mal. Atherosclerotic coronary artery calcific lesions. No pericardial effusion. Thoracic aorta is nor mal in caliber. No pathologically enlarged thoracic lymphadenopathy. Visualized upper abdomen is unre markable. Severe lumbar spondylosis with instrumented L2-L5 anterior and posterior spinal fusion with interbody bone graft cages and bilateral vertical sienna and pedicle screw fixation more completely vis ualized on redevelopment specialist topogram. IMPRESSION: 1. Lung-RADS category 2: Benign appearance or behavior. Continue annual screening with noncontrast lo w-dose chest CT in 12 months. Reviewed, dictated and finalized at location A. IMPRESSION: 1. Lung-RADS category 2: Benign appearance or behavior. Continue annual screeni ng with noncontrast low-dose chest CT in 12 months.
== END 2025-02-18 09:06 | disposition home or self-care (01) ==
LOC: GOSHIMG 09:05
PROVIDERS: PCP Nurse Practitioner Family; Visit Provider Nurse Practitioner Family
DX: Z12.2 Encounter for screening for malignant neoplasm of respiratory organs (principal); Z87.891 Personal history of nicotine dependence
CPT/HCPCS: 71271

== ENCOUNTER 2025-03-26 16:26 | Outpatient (CLI) | payer MEDICARE, SELFPAY ==
--- NOTE | ~2025-03-26 | XR_ITS ---
CHEST RADIOGRAPH, PA AND LATERAL CLINICAL HISTORY: R06.09 - Other forms of dyspnea . COMPARISON: 09/25/2023 TECHNIQUE: PA and lateral views of the chest. FINDINGS The cardiomediastinal silhouette is unremarkable. Blunting of the bilateral costophrenic sulci consistent with small bilateral pleural effusions The remainder of the lungs are clear. IMPRESSION: Small bilateral pleural effusions without focal infiltrate. Reviewed, dictated and finalized at location A.
--- OUTSIDE RECORDS SUMMARY | 2025-03-26 16:34 | XMS_ITS | Encounter Summary ---
Author Organization [facility] Address [address] [place] [address] Care Team Providers Care Computer Field Technician Name Role Phone Kevin Kelly DO Primary Care Provider + Reason for Visit * Reason Comments Medication Refill Encounter Details Date Type Department Care Team (Late st Contact Info) Description 10/19/2017 Refill [facility] Medicine [address] [address] Kevin Kelly DO 27[address] [facility] 200 [place] [address] Degenerative lumbar spinal stenosis Social [...] claudication documented in this encounter Care Teams Computer Field Technician Relationship Specialty Start Date End Date Kevin Kelly DO PCP - General Hospitalists 02/03/13 documented as of this encounter
--- OUTSIDE RECORDS SUMMARY | 2025-03-26 16:34 | XMS_ITS | Encounter Summary ---
Author Organization [facility] Address [address] [place] [address] Care Team Providers Care Ict Developer Name Role Phone Kevin Kelly DO Primary Care Provider + Reason for Visit * Reason Comments Medication Refill Encounter Details Date Type Department Care Team (Late st Contact Info) Description 08/19/2017 Refill [facility] Medicine [address] [address] Kevin Kelly DO 2609 [facility] 200 [place] [address] Degenerative lumbar spinal stenosis Social [...] claudication documented in this encounter Care Teams Ict Developer Relationship Specialty Start Date End Date Kevin Kelly DO PCP - General Hospitalists 02/03/13 documented as of this encounter
--- OUTSIDE RECORDS SUMMARY | 2025-03-26 16:34 | XMS_ITS | Clinical Summary ---
Author Organization [facility] e Address [address] [place] [address] [place] [address] Care Team Providers Care Lube Man Name Role Phone Kevin Kelly DO Primary [...] 2 8 Active fluticasone (FLONASE) 50 mcg/spray [place], SuspensionIndicati ons:Perennial allergic rhinitis Administer 2 Sprays [...] the evening; will see her ophth in [place] re: eye symptoms Recurrent cold sores 12/03/2015 [...] Comments Blood Pressure 116/70 10/28/2017 10:41 AM CIGARETTE PACKING MACHINE OPERATOR Pulse 63 10/28/2017 10:41 AM CIGARETTE PACKING MACHINE OPERATOR Temperature 36.7 C (98 F) 10/28/2017 10:41 AM CIGARETTE PACKING MACHINE OPERATOR Respiratory Rate 17 10/05/2016 11:54 AM CIGARETTE PACKING MACHINE OPERATOR Oxygen Saturation 97% 10/28/2017 10:41 AM CIGARETTE PACKING MACHINE OPERATOR Inhaled Oxygen Concentration - - Weight 44.8 kg (98 lb 12.8 oz) 10/28/2017 10:41 AM CIGARETTE PACKING MACHINE OPERATOR Height 149.9 cm (4' 11) 10/28/2017 10:41 AM CIGARETTE PACKING MACHINE OPERATOR Body Mass Index 19.96 10/28/2017 10:41 AM CIGARETTE PACKING MACHINE OPERATOR Plan of Treatment Health Maintenance Due Date Last Done Comments DTAP/TDAP/TD VACCINES (1 - Tdap) 1973 COLORECTAL SCREENING 1999 Colorectal Cancer Screening 1999 FIT-DNA Q 3 years 1999 FIT/FOBT Q 1 year 1999 Flex Sig/CT Colonography Q 5 years 1999 ZOSTER VACCINE (1 of 2) 2004 PNEUMOCOCCAL VACCINE 50+ YEA RS (2 of 2 - PCV20 or PCV21) 06/15/2014 06/15/2013 BREAST CANCER SCREENING 12/31/2017 01/01/20 17 (Previously completed) OSTEOPOROSIS SCREENING 2019 INFLUENZA VACCINE (#1) 2025 06/03/2014, 2012 RSV VACCINE (60+ or ) (1 - 1-dose 75+ series) 2029 Care Teams Lube Man Relationship Specialty Start Date End Date Kevin Kelly DO PCP - General Hospitalists 02/03/13
== END 2025-03-26 16:27 | disposition home or self-care (01) ==
LOC: ANHIMG 16:33
PROVIDERS: PCP Nurse Practitioner; Visit Provider Nurse Practitioner Family
DX: R06.09 Other forms of dyspnea (principal); R05.9 Cough, unspecified; J90 Pleural effusion, not elsewhere classified
CPT/HCPCS: 71046

== ENCOUNTER 2025-04-29 15:10 | Outpatient (CLI) | payer MEDICARE, SELFPAY ==
--- NOTE | ~2025-04-29 | XR_ITS ---
EXAMINATION: XR chest 2V 04/29/2025 15:23 INDICATION: Shortness of breath PROCEDURE: 2 view chest COMPARISON: Comparison to multiple prior studies sequentially, with oldest reviewed study dated 08/20/2015. FINDINGS: The lungs are clear. The cardiomediastinal silhouette is within normal limits. There are no pleural effusions. There is no pneumothorax suspected. The lungs are hyperinflated which is consistent with, but not diagnostic of chronic obstructive pulmonary disease. IMPRESSION: 1: NO ACUTE CARDIOPULMONARY DISEASE. Reviewed, dictated and finalized at location O.
--- OUTSIDE RECORDS SUMMARY | 2025-04-29 15:14 | XMS_ITS | Encounter Summary ---
Author Organization [facility] Address [address] [place] [address] Care Team Providers Care Hospice Educator Name Role Phone Kevin Kelly DO Primary Care Provider + Reason for Visit * Reason Comments Medication Refill Encounter Details Date Type Department Care Team (Late st Contact Info) Description 08/19/2017 Refill [facility] Medicine [address] [address] Kevin Kelly DO 15[address] [facility] 200 [place] [address] Degenerative lumbar spinal stenosis Social [...] claudication documented in this encounter Care Teams Hospice Educator Relationship Specialty Start Date End Date Kevin Kelly DO PCP - General Hospitalists 02/03/13 documented as of this encounter
--- OUTSIDE RECORDS SUMMARY | 2025-04-29 15:14 | XMS_ITS | Clinical Summary ---
Author Organization [facility] e Address [address] [place] [address] [place] [address] Care Team Providers Care Butcher Assistant Name Role Phone Kevin Kelly DO Primary [...] 2 8 Active fluticasone (FLONASE) 50 mcg/spray [place], SuspensionIndicati ons:Perennial allergic rhinitis Administer 2 Sprays [...] the evening; will see her ophth in [place] re: eye symptoms Recurrent cold sores 12/03/2015 [...] Comments Blood Pressure 116/70 10/28/2017 10:41 AM DRAFTER ELECTRONIC Pulse 63 10/28/2017 10:41 AM DRAFTER ELECTRONIC Temperature 36.7 C (98 F) 10/28/2017 10:41 AM DRAFTER ELECTRONIC Respiratory Rate 17 10/05/2016 11:54 AM DRAFTER ELECTRONIC Oxygen Saturation 97% 10/28/2017 10:41 AM DRAFTER ELECTRONIC Inhaled Oxygen Concentration - - Weight 44.8 kg (98 lb 12.8 oz) 10/28/2017 10:41 AM DRAFTER ELECTRONIC Height 149.9 cm (4' 11) 10/28/2017 10:41 AM DRAFTER ELECTRONIC Body Mass Index 19.96 10/28/2017 10:41 AM DRAFTER ELECTRONIC Plan of Treatment Health Maintenance Due Date [...] - 1-dose 75+ series) 2029 Care Teams Butcher Assistant Relationship Specialty Start Date End Date Kevin Kelly DO PCP - General Hospitalists 02/03/13
--- OUTSIDE RECORDS SUMMARY | 2025-04-29 15:14 | XMS_ITS | Encounter Summary ---
Author Organization [facility] Address [address] [place] [address] Care Team Providers Care Fractionating Still Operator Name Role Phone Kevin Kelly DO Primary Care Provider + Reason for Visit * Reason Comments Medication Refill Encounter Details Date Type Department Care Team (Late st Contact Info) Description 10/19/2017 Refill [facility] Medicine [address] [address] Kevin Kelly DO [address] [facility] 200 [place] [address] Degenerative lumbar spinal stenosis Social [...] claudication documented in this encounter Care Teams Fractionating Still Operator Relationship Specialty Start Date End Date Kevin Kelly DO PCP - General Hospitalists 02/03/13 documented as of this encounter
== END 2025-04-29 15:11 | disposition home or self-care (01) ==
LOC: ANHIMG 15:12
PROVIDERS: PCP Nurse Practitioner Family; Visit Provider Nurse Practitioner Family
DX: R06.02 Shortness of breath (principal); J90 Pleural effusion, not elsewhere classified; R06.2 Wheezing; J44.9 Chronic obstructive pulmonary disease, unspecified; G47.34 Idiopathic sleep related nonobstructive alveolar hypoventilation; R09.02 Hypoxemia; Z72.0 Tobacco use
CPT/HCPCS: 71046

== ENCOUNTER 2025-05-13 17:34 | Emergency (ER) | payer MEDICARE, SELFPAY ==
--- NOTE | ~2025-05-13 | XR_ITS ---
EXAMINATION: XR chest 2V 05/13/2025 18:10 INDICATION: Chest pain and shortness of breath PROCEDURE: 2 view chest COMPARISON: Comparison to multiple prior studies sequentially, with oldest reviewed study dated 10/31/2022. FINDINGS: The lungs are clear. The cardiomediastinal silhouette is within normal limits. There are no pleural effusions. There is no pneumothorax suspected. Spinal rods partially visualized in the lumbar spine. The lungs are hyperinflated which is consistent with, but not diagnostic of chronic obst ructive pulmonary disease. IMPRESSION: 1: NO ACUTE CARDIOPULMONARY DISEASE. Reviewed, dictated and finalized at location O.
--- NOTE | 2025-05-13 17:37 | ECG_ITS ---
Test Date: 2025-05-13 17:43:37 Measurements Intervals Isabella Rate: 87 P: 75 VA: 130 QRS: 57 QRSD: 77 T: 69 QT: 342 QTc: 413 Interpretive Statements SINUS RHYTHM No previous ECG available for comparison Electronically Signed On 05-14-2025 15:15:35 CDT by Errol Schrader M.D.
--- OUTSIDE RECORDS SUMMARY | 2025-05-13 17:37 | XMS_ITS | Clinical Summary ---
Author Organization [facility] e Address [address] [place] [address] [place] [address] Care Team Providers Care Patient Assistant Name Role Phone Kevin Kelly DO [...] 2 8 Active fluticasone (FLONASE) 50 mcg/spray [place], SuspensionIndicati ons:Perennial allergic rhinitis Administer 2 Sprays [...] the evening; will see her ophth in [place] re: eye symptoms Recurrent cold sores 12/03/2015 [...] Comments Blood Pressure 116/70 10/28/2017 10:41 AM ENTRY LEVEL ADMINISTRATIVE ASSISTANT Pulse 63 10/28/2017 10:41 AM ENTRY LEVEL ADMINISTRATIVE ASSISTANT Temperature 36.7 C (98 F) 10/28/2017 10:41 AM ENTRY LEVEL ADMINISTRATIVE ASSISTANT Respiratory Rate 17 10/05/2016 11:54 AM ENTRY LEVEL ADMINISTRATIVE ASSISTANT Oxygen Saturation 97% 10/28/2017 10:41 AM ENTRY LEVEL ADMINISTRATIVE ASSISTANT Inhaled Oxygen Concentration - - Weight 44.8 kg (98 lb 12.8 oz) 10/28/2017 10:41 AM ENTRY LEVEL ADMINISTRATIVE ASSISTANT Height 149.9 cm (4' 11) 10/28/2017 10:41 AM ENTRY LEVEL ADMINISTRATIVE ASSISTANT Body Mass Index 19.96 10/28/2017 10:41 AM ENTRY LEVEL ADMINISTRATIVE ASSISTANT Plan of Treatment Health Maintenance Due Date [...] - 1-dose 75+ series) 2029 Care Teams Patient Assistant Relationship Specialty Start Date End Date Kevin Kelly DO PCP - General Hospitalists 02/03/13
--- OUTSIDE RECORDS SUMMARY | 2025-05-13 17:37 | XMS_ITS | Encounter Summary ---
Author Organization [facility] Address [address] [place] [address] Care Team Providers Care Sales Vendor Name Role Phone Kevin Kelly DO Primary Care Provider + Reason for Visit * Reason Comments Medication Refill Encounter Details Date Type Department Care Team (Late st Contact Info) Description 10/19/2017 Refill [facility] Medicine [address] [address] Kevin Kelly DO 53[address] [facility] 200 [place] [address] Degenerative lumbar spinal stenosis Social [...] claudication documented in this encounter Care Teams Sales Vendor Relationship Specialty Start Date End Date Kevin Kelly DO PCP - General Hospitalists 02/03/13 documented as of this encounter
--- OUTSIDE RECORDS SUMMARY | 2025-05-13 17:37 | XMS_ITS | Encounter Summary ---
Author Organization [facility] Address [address] [place] [address] Care Team Providers Care Suede Cleaner Name Role Phone Kevin Kelly DO Primary Care Provider + Reason for Visit * Reason Comments Medication Refill Encounter Details Date Type Department Care Team (Late st Contact Info) Description 08/19/2017 Refill [facility] Medicine [address] [address] Kevin Kelly DO [address] [facility] 200 [place] [address] Degenerative lumbar spinal stenosis Social [...] claudication documented in this encounter Care Teams Suede Cleaner Relationship Specialty Start Date End Date Kevin Kelly DO PCP - General Hospitalists 02/03/13 documented as of this encounter
[2025-05-13 17:57] LABS: Hematocrit 46.1 % (37.0-47.0); Hemoglobin 15.2 g/dL (12.0-15.0); Immature Granulocyte Percent A 0.2 % (0-0.5); Lymphocytes Absolute Auto 2.93 K/mm3 (0.9-3.2); Mean Corpuscular HGB Conc 33.0 g/dl (32-36); Mean Corpuscular Hemoglobin 28.9 pg (26-34); Mean Corpuscular Volume 87.6 fl (80-100); Nucleated Red Blood Cells Absolute Auto 0.000 K/mm3 (0.0-0.012); Nucleated Red Blood Cells Perc 0.0 % (0.0-0.2); Platelet Count Result 247 k/mm3 (150-375); Red Blood Count 5.26 M/mm3 (4.2-5.4); White Blood Count 12.8 K/mm3 (4.5-10.0)
[2025-05-13 18:00] VITALS: BP 125/54; PULSE 85; RESP 22; TEMP 37.2; O2SAT 87
[2025-05-13 18:06] VITALS: O2SAT 87; O2SAT 90
[2025-05-13 18:10] LABS: INR 0.9; Partial Thromboplastin Time 26.2 Seconds (22.3-36.8); Prothrombin Time 12.5 Seconds (11.1-14.7)
[2025-05-13 18:12] LABS: Alanine Aminotransferase 17 U/L (6-35); Albumin Level 4.2 g/dL (3.5-5.1); Alkaline Phosphatase 115 U/L (38-126); Anion Gap 5 mmol/L (4-12); Aspartate Amino Transferase 31 U/L (14-36); Bilirubin,Total 0.4 mg/dL (0.2-1.3); Blood Urea Nitrogen 15 mg/dL (7-17); Calcium 8.7 mg/dL (8.4-10.2); Carbon Dioxide 32 mmol/L (22-30); Chloride 98 mmol/L (98-107); Estimated Glomerular Filt Rate > 60; Glucose 134 mg/dL (65-110); Lipase 62 U/L (23-300); Potassium 3.4 mmol/L (3.4-5.0); Sodium 135 mmol/L (137-145); Total Protein 7.5 g/dL (6.3-8.2)
[2025-05-13 18:19] LABS: Troponin I < 0.012 ng/mL (0.000-0.034)
--- NOTE | 2025-05-13 21:37 | ECG_ITS ---
Test Date: 2025-05-13 21:31:44 Measurements Intervals [place] Rate: 74 P: 70 ND: 147 QRS: 56 QRSD: 74 T: 68 QT: 380 QTc: 423 Interpretive Statements SINUS RHYTHM WITH OCCASIONAL ECTOPIC PREMATURE COMPLEXES ANTEROSEPTAL MYOCARDIAL INFARCTION , OF INDETERMINATE AGE [40+ ms Q WAVE IN V1-V4] Compared to ECG 05/13/2025 17:43:37 Myocardial infarct finding now present Electronically Signed On 05-14-2025 15:23:06 CDT by Errol Schrader M.D.
[2025-05-13 21:54] VITALS: BP 150/79; PULSE 75; RESP 16; TEMP 36.6; O2SAT 93; O2SAT 94
[2025-05-13 22:15] VITALS: BP 159/90; PULSE 74; RESP 14; O2SAT 95
[2025-05-13 22:17] LABS: Troponin I < 0.012 ng/mL (0.000-0.034)
[2025-05-13 22:31] LABS: Fractional Inspired Oxygen 28 %; HCO3 VBG 32.0 mEq/l (24.0-30.0); PCO2 VBG 52.1 mmHg (42.0-48.0); PO2 VBG 34.9 mmHg (35.0-45.0)
[2025-05-13 22:35] LABS: pH VBG 7.406 (7.300-7.400)
--- OUTSIDE RECORDS SUMMARY | 2025-05-13 22:36 | XMS_ITS | Encounter Summary ---
Author Organization [facility] Address [address] [place] [address] Care Team Providers Care Escrow Agent Name Role Phone Kevin Kelly DO Primary Care Provider + Reason for Visit * Reason Comments Medication Refill Encounter Details Date Type Department Care Team (Late st Contact Info) Description 10/19/2017 Refill [facility] Medicine [address] [address] Kevin Kelly DO 136[address] [facility] 200 [place] [address] Degenerative lumbar spinal stenosis Social [...] claudication documented in this encounter Care Teams Escrow Agent Relationship Specialty Start Date End Date Kevin Kelly DO PCP - General Hospitalists 02/03/13 documented as of this encounter
--- OUTSIDE RECORDS SUMMARY | 2025-05-13 22:36 | XMS_ITS | Encounter Summary ---
Author Organization [facility] Address [address] [place] [address] Care Team Providers Care Thermal Molder Name Role Phone Kevin Kelly DO Primary Care Provider + Reason for Visit * Reason Comments Medication Refill Encounter Details Date Type Department Care Team (Late st Contact Info) Description 08/19/2017 Refill [facility] Medicine [address] [address] Kevin Kelly DO [address] [facility] 200 [place] [address] Degenerative lumbar spinal stenosis Social [...] claudication documented in this encounter Care Teams Thermal Molder Relationship Specialty Start Date End Date Kevin Kelly DO PCP - General Hospitalists 02/03/13 documented as of this encounter
--- OUTSIDE RECORDS SUMMARY | 2025-05-13 22:36 | XMS_ITS | Clinical Summary ---
Author Organization [facility] e Address [address] [place] [address] [place] [address] Care Team Providers Care Education Counselor Name Role Phone Kevin Kelly DO Primary [...] 2 8 Active fluticasone (FLONASE) 50 mcg/spray [place], SuspensionIndicati ons:Perennial allergic rhinitis Administer 2 Sprays [...] the evening; will see her ophth in [place] re: eye symptoms Recurrent cold sores 12/03/2015 Weight loss, unintentional 10/06/2015 Acquired hypothyroidism 09/30/2015 Rhinosinusitis 07/18/2015 Cough 07/18/2015 Lumbago 03/19/2015 Neurogenic claudication due to lumbar spinal dasiy nosis 02/22/2015 Chronic pain 01/27/2015 Depression with [...] Comments Blood Pressure 116/70 10/28/2017 10:41 AM SQL MANAGER Pulse 63 10/28/2017 10:41 AM SQL MANAGER Temperature 36.7 C (98 F) 10/28/2017 10:41 AM SQL MANAGER Respiratory Rate 17 10/05/2016 11:54 AM SQL MANAGER Oxygen Saturation 97% 10/28/2017 10:41 AM SQL MANAGER Inhaled Oxygen Concentration - - Weight 44.8 kg (98 lb 12.8 oz) 10/28/2017 10:41 AM SQL MANAGER Height 149.9 cm (4' 11) 10/28/2017 10:41 AM SQL MANAGER Body Mass Index 19.96 10/28/2017 10:41 AM SQL MANAGER Plan of Treatment Health Maintenance Due Date [...] - 1-dose 75+ series) 2029 Care Teams Education Counselor Relationship Specialty Start Date End Date Kevin Kelly DO PCP - General Hospitalists 02/03/13
[2025-05-13] MEDS: MAGNESIUM SULF 2 GM/WATER 50ML 2 GM/50 ML BAG IVPB (22:40)
[2025-05-13] MEDS: IPRATROPIUM 0.5 MG/ALBUTEROL SULFATE 2.5 MG AMPUL.NEB 3 ML 10 ML INHALATION (22:41)
[2025-05-13 22:44] VITALS: PULSE 85; RESP 16
[2025-05-13 23:08] LABS: Influenza A QL RT-PCR Negative (Negative); Influenza B QL RT-PCR Negative (Negative); RSV RNA, RT-PCR Negative (Negative); SARS-CoV-2 RNA PCR Negative (Negative)
--- NOTE | 2025-05-13 23:10 | ED.GENADULT ---
HPI - General Adult General Chief complaint: Shortness of Breath/Dyspnea Stated complaint: SOB, CP Time Seen by Provider: 05/13/25 22:20 History of Present Illness HPI narrative: This is a 69-year-old female with history of COPD on home oxygen presenting for difficulty breathing. Patient has progressively worse difficulty breathing over the last week. Associated with productive cough. No chest pain or fevers. She has been taking her medications as directed. She is still smoking. Related Data Allergies Allergy/AdvReac Type Severity Reaction Status Date / Time ciprofloxacin Allergy Intermediate sob and Verified 05/13/25 18:06 nausea clindamycin Allergy Intermediate sob and Verified 05/13/25 18:06 nausea Penicillins Allergy Intermediate sob and Verified 05/13/25 18:06 nausea amitriptyline Allergy Mild Nausea Verified 05/13/25 18:06 escitalopram Allergy Mild nauseated Verified 05/13/25 18:06 shellfish derived AdvReac Hives Verified 05/13/25 18:06 PMFSH Past Medical History Medical History Frequent urination Bloating Headache Colitis Arthritis Allergies Hypothyroid Hypertension Depression COPD (chronic obstructive pulmonary disease) Anxiety Surgical History Surgical History Previous back surgery History of bladder suspension procedure H/O total hysterectomy 1982 Status post cholecystectomy Family History Family History Sibling Depression Family history of diabetes mellitus in first degree relative Cancer Hypertension Thyroid disorder Mother Hypertension Cancer Depression Heart disease Thyroid disorder Father Family history of coronary artery disease Hypertension Heart disease Depression Grandparent Heart disease Hypertension Social History Social History Smoking packs per day: 1 Smoking cigarettes per day: 20.0 Years smoked: 53 Smoking pack-years: 53.00 Smoking status: Current every day smoker Tobacco type: cigarettes Additional smoking assessment comments: Currently smoking 1/2ppd. Alcohol intake: never Substance use: never Substance use type: does not use Lack of Transportation: No Lack of Food: Sometimes True Current Housing: I Have Housing Concerned About Future Housing: No Difficulty Paying Gas/Electric Bills: Decline to Answer Difficulty Paying for Meds: YES Currently Unemployed: No Education: Associate Degree Difficulty w/ Childcare or Family Care: No Spiritual care concerns: No Exam Narrative: APPEARANCE: No apparent distress. Smells of cigarette smoke Head: atraumatic. EYES: EOMI, NOSE: Atraumatic NECK: Trachea midline RESPIRATORY: No increased rate of breathing speaking in full sentences, scattered wheezing CARDIOVASCULAR: RRR, no peripheral edema ABDOMINAL: Non-distended MUSCULOSKELETAl: No obvious deformities NEURO: Alert. Moving 4/4 extremities SKIN:: Warm, dry. Normal color PSYCHIATRIC: Normal affect Course Vital Signs Vital signs: Vital Signs Temperature 99 F 05/13/25 18:00 Pulse Rate 85 05/13/25 18:00 Respiratory Rate 22 H 05/13/25 18:00 Blood Pressure 125/54 L 05/13/25 18:00 Pulse Oximetry 87 L 05/13/25 18:00 Oxygen Delivery Room Air 05/13/25 18:00 Temperature 97.8 F 05/13/25 21:54 Pulse Rate 85 05/13/25 22:44 Respiratory Rate 16 05/13/25 22:44 Blood Pressure 150/79 H 05/13/25 21:54 Pulse Oximetry 94 05/13/25 21:54 Oxygen Delivery Room Air 05/13/25 21:54 Oxygen Flow Rate 2 05/13/25 18:06 Medical Decision Making MDM Narrative Medical decision making narrative: -Course: 69-year-old female history of COPD who is still smoking presenting for 1 week of progressively worse difficulty breathing. Afebrile. White count 12. Chest x-ray without signs of pneumonia. Patient given a breathing treatment. She is reassessed and feels comfortable going home. She will be discharged on antibiotics for COPD exacerbation. Given return precautions. -DDX includes but is not limited to: COPD exacerbation, pneumonia, viral illness, Vital Signs Vital Signs: Vital Signs Temperature 99 F 05/13/25 18:00 Pulse Rate 85 05/13/25 18:00 Respiratory Rate 22 H 05/13/25 18:00 Blood Pressure 125/54 L 05/13/25 18:00 Pulse Oximetry 87 L 05/13/25 18:00 Oxygen Delivery Room Air 05/13/25 18:00 Temperature 97.8 F 05/13/25 21:54 Pulse Rate 85 05/13/25 22:44 Respiratory Rate 16 05/13/25 22:44 Blood Pressure 150/79 H 05/13/25 21:54 Pulse Oximetry 94 05/13/25 21:54 Oxygen Delivery Room Air 05/13/25 21:54 Oxygen Flow Rate 2 05/13/25 18:06 Lab Data 05/13/25 17:49 05/13/25 17:49 Labs: Lab Results 05/13/25 05/13/25 05/13/25 Range/Units 17:49 21:27 22:26 WBC 12.8 H (4.5-10.0) K/mm3 RBC 5.26 (4.2-5.4) M/mm3 Hgb 15.2 H (12.0-15.0) g/dL Hct 46.1 (37.0-47.0) % MCV 87.6 (80-100) fl MCH 28.9 (26-34) pg MCHC 33.0 (32-36) g/dl RDW 13.9 (11.5-14.5) % Plt Count 247 (150-375) k/mm3 MPV 10.5 H (7.4-10.4) fl Immature Gran % (Auto) 0.2 (0-0.5) % Neut % (Auto) 65.4 (45.5-73.1) % Lymph % (Auto) 22.8 (18.3-44.2) % [place] % (Auto) 7.2 (2.6-8.5) % Eos % (Auto) 3.9 (0-4.4) % Baso % (Auto) 0.5 (0.2-1.2) % Lymph # (Auto) 2.93 (0.9-3.2) K/mm3 [place] # (Auto) 0.9 H (0.1-0.6) K/mm3 Eos # (Auto) 0.5 H (0-0.3) K/mm3 Baso # (Auto) 0.1 (0.0-0.1) K/mm3 Abs Immat Gran (auto) 0.03 (0.00-0.031) K/mm3 Absolute Neuts (auto) 8.4 H (1.3-6.7) K/mm3 Absolute Nucleated RBC 0.000 (0.0-0.012) K/mm3 Nucleated RBC % 0.0 (0.0-0.2) % PT 12.5 (11.1-14.7) Seconds INR 0.9 APTT 26.2 (22.3-36.8) Seconds Sodium 135 L (137-145) mmol/L Potassium 3.4 (3.4-5.0) mmol/L Chloride 98 (98-107) mmol/L Carbon Dioxide 32 H (22-30) mmol/L Anion Gap 5 (4-12) mmol/L BUN 15 (7-17) mg/dL Creatinine 0.57 L (0.7-1.0) mg/dL Estim Creat Clear Calc Not Reportable Estimated GFR > 60 (59 - ) Glucose 134 H (65-110) mg/dL Calcium 8.7 (8.4-10.2) mg/dL Total Bilirubin 0.4 (0.2-1.3) mg/dL AST 31 (14-36) U/L ALT 17 (6-35) U/L Alkaline Phosphatase 115 (38-126) U/L Troponin I < 0.012 < 0.012 (0.000-0.034) ng/mL Total Protein 7.5 (6.3-8.2) g/dL Albumin 4.2 (3.5-5.1) g/dL Lipase 62 (23-300) U/L Influenza A (RT-PCR) Negative (Negative) Influenza B (RT-PCR) Negative (Negative) RSV (RT-PCR) Negative (Negative) SARS-CoV-2 RNA (RT-PCR) Negative (Negative) 05/13/25 Range/Units 23:47 WBC (4.5-10.0) K/mm3 RBC (4.2-5.4) M/mm3 Hgb (12.0-15.0) g/dL Hct (37.0-47.0) % MCV (80-100) fl MCH (26-34) pg MCHC (32-36) g/dl RDW (11.5-14.5) % Plt Count (150-375) k/mm3 MPV (7.4-10.4) fl Immature Gran % (Auto) (0-0.5) % Neut % (Auto) (45.5-73.1) % Lymph % (Auto) (18.3-44.2) % [place] % (Auto) (2.6-8.5) % Eos % (Auto) (0-4.4) % Baso % (Auto) (0.2-1.2) % Lymph # (Auto) (0.9-3.2) K/mm3 [place] # (Auto) (0.1-0.6) K/mm3 Eos # (Auto) (0-0.3) K/mm3 Baso # (Auto) (0.0-0.1) K/mm3 Abs Immat Gran (auto) (0.00-0.031) K/mm3 Absolute Neuts (auto) (1.3-6.7) K/mm3 Absolute Nucleated RBC (0.0-0.012) K/mm3 Nucleated RBC % (0.0-0.2) % PT (11.1-14.7) Seconds INR APTT (22.3-36.8) Seconds Sodium (137-145) mmol/L Potassium (3.4-5.0) mmol/L Chloride (98-107) mmol/L Carbon Dioxide (22-30) mmol/L Anion Gap (4-12) mmol/L BUN (7-17) mg/dL Creatinine (0.7-1.0) mg/dL Estim Creat Clear Calc Estimated GFR (59 - ) Glucose (65-110) mg/dL Calcium (8.4-10.2) mg/dL Total Bilirubin (0.2-1.3) mg/dL AST (14-36) U/L ALT (6-35) U/L Alkaline Phosphatase (38-126) U/L Troponin I < 0.012 (0.000-0.034) ng/mL Total Protein (6.3-8.2) g/dL Albumin (3.5-5.1) g/dL Lipase (23-300) U/L Influenza A (RT-PCR) (Negative) Influenza B (RT-PCR) (Negative) RSV (RT-PCR) (Negative) SARS-CoV-2 RNA (RT-PCR) (Negative) ABG Data ABG results: 05/13/25 22:26 VBG pH 7.406 H* VBG pCO2 52.1 H VBG pO2 34.9 L VBG HCO3 32.0 H FiO2 28 Discharge Plan Discharge Clinical Impression: COPD exacerbation Patient Disposition: Home Condition: Stable Instructions: Antibiotic Form, COPD (Chronic Obstructive Pulmonary Disease) (DC) Additional Instructions: You were seen in the emergency department for a COPD exacerbation. Please use your breathing treatments every 4 hours. Please take the steroids as instructed and complete a course of antibiotics. If you develop fevers or feel that your breathing is not improving return to the ED for reevaluation. Patient Language: Czech Prescriptions: New doxycycline hyclate 100 mg capsule 100 mg PO BID PRN (Reason: COPD) 49 Days Qty: 14 0RF prednisone 50 mg tablet 50 mg PO DAILY Qty: 5 0RF No Action sertraline 100 mg tablet 100 mg PO DAILY Qty: 90 1RF Trelegy Ellipta 100-62.5-25 mcg blister with device 1 inh inhalation DAILY Qty: 60 5RF Rx Instructions: rinse and spit Ohtuvayre 3 mg/2.5 mL suspension for nebulization 2.5 ml inhalation QAM AND QPM Qty: 150 5RF valacyclovir 1 gram tablet 1,000 mg PO Q8H 10 Days Qty: 30 0RF ipratropium bromide 0.02 % solution 2.5 ml inhalation Q6H PRN (Reason: shortness of breath or wheezing) Qty: 300 5RF loratadine [Claritin] 10 mg tablet 10 mg PO DAILY Qty: 90 1RF levothyroxine 88 mcg tablet 88 mcg PO DAILY Qty: 90 1RF gabapentin 300 mg capsule 300 mg PO BID Qty: 180 1RF cholecalciferol (vitamin D3) 1,250 mcg (50,000 unit) capsule 1,250 mcg PO WEEKLY Qty: 8 0RF lisinopril 10 mg tablet 10 mg PO DAILY Qty: 90 1RF atorvastatin [Lipitor] 10 mg tablet 10 mg PO QHS Qty: 90 1RF amlodipine 10 mg tablet 10 mg PO DAILY Qty: 90 1RF metoprolol tartrate 50 mg tablet 50 mg PO BID Qty: 180 1RF albuterol sulfate 90 mcg/actuation HFA aerosol inhaler See Rx Instructions .ROUTE .COMPLEX Qty: 8.5 3RF Dose Instruction: INHALE 2 PUFFS EVERY 4-6 HOURS NEEDED FOR SHORTNESS OF BREATH Rx Instructions: INHALE 2 PUFFS EVERY 4-6 HOURS NEEDED FOR SHORTNESS OF BREATH Follow-up/Referrals: Samantha Brooks WOMEN DESIGNER [Primary Care Provider, Internal Medicine]
[2025-05-13 23:45] VITALS: BP 125/66; PULSE 92; RESP 18; O2SAT 92
[2025-05-14 00:16] LABS: Troponin I < 0.012 ng/mL (0.000-0.034)
== END 2025-05-14 01:13 | disposition home or self-care (01) ==
PROVIDERS: Student in an Organized Health Care Education/Training Program; Emergency Provider Emergency Medicine; PCP Nurse Practitioner
DX: J44.1 Chronic obstructive pulmonary disease with (acute) exacerbation (principal); E03.9 Hypothyroidism, unspecified; I10 Essential (primary) hypertension; F17.210 Nicotine dependence, cigarettes, uncomplicated; Z99.81 Dependence on supplemental oxygen; Z20.822 Contact with and (suspected) exposure to COVID-19
CPT/HCPCS: 36415; 71046; 80053; 82803; 83690; 84484; 85025; 85610; 85730; 87637; 93005; 94640; 96365; 96375; 99284; J2919; J3475

== ENCOUNTER 2025-06-03 15:42 | Inpatient (IN) | payer MEDICARE, SELFPAY ==
[2025-06-03] VITALS (11 sets, daily range): BP systolic 119–153; BP diastolic 56–79; PULSE 99–110; RESP 15–26; TEMP 36.6–37.6; O2SAT 84–97; BMI 19.1
--- NOTE | ~2025-06-03 | XR_ITS ---
EXAMINATION: XR chest 1V portable COMPARISON: No comparisons available. HISTORY: dyspnea, hypoxic FINDINGS: COPD changes. There are small basilar infiltrates. No pneumothorax. Heart is normal size. Mediastinal and hilar contours are within normal limits. Bony thorax no acute abnormality. Miscellaneous: None Impression: Early bilateral pneumonia Reviewed, dictated and finalized at location P. Impression: Early bilateral pneumonia
--- NOTE | ~2025-06-03 | CT_ITS ---
EXAMINATION: CT brain wo giulia, 06/05/2025 16:10 CDT HISTORY: confusion, uneven pupils COMPARISON: No comparisons available. Technique: Axial images obtained of the brain without contrast. One or more of the following dose reduction techniques were used: automated exposure control, adjustment of the mA and/or kV according to patient size, use of iterative reconstruction technique. Findings: No acute infarct or parenchymal hemorrhage. No abnormal mass or mass effect. No midline shift. No extra-axial fluid collections. No hydrocephalus. Mastoid air cells unremarkable. Sinuses and orbits unremarkable. No acute fracture. No significant facial or scalp soft tissue swelling evident. No radiopaque foreign body is seen. Impression: 1.No acute intracranial abnormality. Reviewed, dictated and finalized at location P. Impression: 1.No acute intracranial abnormality.
--- OUTSIDE RECORDS SUMMARY | 2025-06-03 15:44 | XMS_ITS | Encounter Summary ---
Author Organization [facility] Address [address] [place] [address] Care Team Providers Care Gis Specialist Name Role Phone Kevin Kelly DO Primary Care Provider + Reason for Visit * Reason Comments Medication Refill Encounter Details Date Type Department Care Team (Late st Contact Info) Description 08/19/2017 Refill [facility] Medicine [address] [address] Kevin Kelly DO [address] [facility] [address] [place] [address] Degenerative lumbar spinal stenosis Social [...] claudication documented in this encounter Care Teams Gis Specialist Relationship Specialty Start Date End Date Kevin Kelly DO PCP - General Hospitalists 02/03/13 documented as of this encounter
--- OUTSIDE RECORDS SUMMARY | 2025-06-03 15:44 | XMS_ITS | Clinical Summary ---
Author Organization [facility] e Address [id number] [place] [address] [place] [address] Care Team Providers Care Door Attendant Name Role Phone Kevin Kelly DO Primary [...] 2 8 Active fluticasone (FLONASE) 50 mcg/spray [place], SuspensionIndicati ons:Perennial allergic rhinitis Administer 2 Sprays [...] the evening; will see her ophth in [place] re: eye symptoms Recurrent cold sores 12/03/2015 [...] Comments Blood Pressure 116/70 10/28/2017 10:41 AM GAS PIPE LAYER Pulse 63 10/28/2017 10:41 AM GAS PIPE LAYER Temperature 36.7 C (98 F) 10/28/2017 10:41 AM GAS PIPE LAYER Respiratory Rate 17 10/05/2016 11:54 AM GAS PIPE LAYER Oxygen Saturation 97% 10/28/2017 10:41 AM GAS PIPE LAYER Inhaled Oxygen Concentration - - Weight 44.8 kg (98 lb 12.8 oz) 10/28/2017 10:41 AM GAS PIPE [employer]AYER Height 149.9 cm (4' 11) 10/28/2017 10:41 AM GAS PIPE [employer]AYER Body Mass Index 19.96 10/28/2017 10:41 AM GAS PIPE LAYER Plan of Treatment Health Maintenance Due Date [...] - 1-dose 75+ series) 2029 Care Teams Door Attendant Relationship Specialty Start Date End Date Kevin Kelly DO PCP - General Hospitalists 02/03/13
--- OUTSIDE RECORDS SUMMARY | 2025-06-03 15:44 | XMS_ITS | Encounter Summary ---
Author Organization [facility] Address [address] [place] [address] Care Team Providers Care Log Turner Name Role Phone Kevin Kelly DO Primary Care Provider + Reason for Visit * Reason Comments Medication Refill Encounter Details Date Type Department Care Team (Late st Contact Info) Description 10/19/2017 Refill [facility] Medicine [address] [address] Kevin Kelly DO [address] [facility] [address] [place] [address] Degenerative lumbar spinal stenosis Social [...] claudication documented in this encounter Care Teams Log Turner Relationship Specialty Start Date End Date Kevin Kelly DO PCP - General Hospitalists 02/03/13 documented as of this encounter
--- NOTE | 2025-06-03 15:48 | ECG_ITS ---
Test Date: 2025-06-03 16:19:37 Measurements Intervals [place] Rate: 103 P: 74 UT: 139 QRS: 55 QRSD: 78 T: 61 QT: 318 QTc: 418 Interpretive Statements SINUS TACHYCARDIA CONSIDER ANTERIOR INFARCT, AGE INDETERMINATE BORDERLINE ST ABNORMALITY- INFERIOR LEADS BASELINE ARTIFACT- I, II, AVR, AVL, V1, V4-V6 ABNORMAL ECG Compared to ECG 05/13/2025 21:31:44 HEART RATE HAS INCREASED Electronically Signed On 06-03-2025 16:42:16 CDT by Azeem Garay D.O.
--- OUTSIDE RECORDS SUMMARY | 2025-06-03 16:12 | XMS_ITS | Encounter Summary ---
Author Organization [facility] Address [address] [place] [address] Care Team Providers Care Tafe Teacher Name Role Phone Kevin Kelly DO Primary Care Provider + Reason for Visit * Reason Comments Medication Refill Encounter Details Date Type Department Care Team (Late st Contact Info) Description 08/19/2017 Refill [facility] Medicine [address] [address] Kevin Kelly DO [address] [facility] [address] [place] [address] Degenerative lumbar spinal stenosis Social [...] claudication documented in this encounter Care Teams Tafe Teacher Relationship Specialty Start Date End Date Kevin Kelly DO PCP - General Hospitalists 02/03/13 documented as of this encounter
--- OUTSIDE RECORDS SUMMARY | 2025-06-03 16:12 | XMS_ITS | Encounter Summary ---
Author Organization [facility] Address [address] [place] [address] Care Team Providers Care Income Tax Manager Name Role Phone Kevin Kelly DO Primary Care Provider + Reason for Visit * Reason Comments Medication Refill Encounter Details Date Type Department Care Team (Late st Contact Info) Description 10/19/2017 Refill [facility] Medicine [address] [address] Kevin Kelly DO [address] [facility] [address] [place] [address] Degenerative lumbar spinal stenosis Social [...] claudication documented in this encounter Care Teams Income Tax Manager Relationship Specialty Start Date End Date Kevin Kelly DO PCP - General Hospitalists 02/03/13 documented as of this encounter
[2025-06-03 16:37] LABS: Hematocrit 41.9 % (37.0-47.0); Hemoglobin 14.0 g/dL (12.0-15.0); Immature Granulocyte Percent A 0.4 % (0-0.5); Lymphocytes Absolute Auto 1.15 K/mm3 (0.9-3.2); Mean Corpuscular HGB Conc 33.4 g/dl (32-36); Mean Corpuscular Hemoglobin 29.0 pg (26-34); Mean Corpuscular Volume 86.9 fl (80-100); Nucleated Red Blood Cells Absolute Auto 0.000 K/mm3 (0.0-0.012); Nucleated Red Blood Cells Perc 0.0 % (0.0-0.2); Platelet Count Result 163 k/mm3 (150-375); Red Blood Count 4.82 M/mm3 (4.2-5.4); White Blood Count 16.2 K/mm3 (4.5-10.0)
[2025-06-03] MEDS: ALBUTEROL SULFATE NEB 2.5 MG/3 ML INH 12 MG INHALATION (16:47)
[2025-06-03 16:48] LABS: Alanine Aminotransferase 14 U/L (6-35); Albumin Level 3.6 g/dL (3.5-5.1); Alkaline Phosphatase 126 U/L (38-126); Anion Gap 6 mmol/L (4-12); Aspartate Amino Transferase 25 U/L (14-36); Bilirubin,Total 0.5 mg/dL (0.2-1.3); Blood Urea Nitrogen 8 mg/dL (7-17); Calcium 8.7 mg/dL (8.4-10.2); Carbon Dioxide 35 mmol/L (22-30); Chloride 90 mmol/L (98-107); Estimated Glomerular Filt Rate > 60; Glucose 112 mg/dL (65-110); Potassium 3.1 mmol/L (3.4-5.0); Sodium 131 mmol/L (137-145); Total Protein 7.0 g/dL (6.3-8.2)
[2025-06-03 17:17] LABS: Fractional Inspired Oxygen 32 %; HCO3 VBG 33.3 mEq/l (24.0-30.0); PCO2 VBG 49.8 mmHg (42.0-48.0); PO2 VBG 59.5 mmHg (35.0-45.0)
[2025-06-03 17:23] LABS: Influenza A QL RT-PCR Negative (Negative); Influenza B QL RT-PCR Negative (Negative); RSV RNA, RT-PCR Negative (Negative); SARS-CoV-2 RNA PCR Negative (Negative)
--- NOTE | 2025-06-03 17:37 | ED_ITS ---
HPI - General Adult General Chief complaint: Shortness of Breath/Dyspnea Stated complaint: SOB Time Seen by Provider: 06/03/25 15:58 History of Present Illness HPI narrative: This is a pleasant 69-year-old female with COPD on home oxygen current tobacco user presenting for difficulty breathing. Patient was seen here 3 weeks ago for COPD exacerbation and discharged on antibiotics and steroids. She improved during that time but over last 2-3 days her condition has worsened and she is now having worsening shortness of breath. She has had increased oxygen requirements and has developed a productive cough with foul tasting sputum. She has had a fever of 101.9 at home. She is also complaining of a headache and weakness. Related Data Allergies Allergy/AdvReac Type Severity Reaction Status Date / Time ciprofloxacin Allergy Intermediate sob and Verified 06/03/25 15:43 nausea clindamycin Allergy Intermediate sob and Verified 06/03/25 15:43 nausea Penicillins Allergy Intermediate sob and Verified 06/03/25 15:43 nausea amitriptyline Allergy Mild Nausea Verified 06/03/25 15:43 escitalopram Allergy Mild nauseated Verified 06/03/25 15:43 shellfish derived AdvReac Hives Verified 06/03/25 15:43 PMFSH Past Medical History Medical History Frequent urination Bloating Headache Colitis Arthritis Allergies Hypothyroid Hypertension Depression COPD (chronic obstructive pulmonary disease) Anxiety Surgical History Surgical History Previous back surgery History of bladder suspension procedure H/O total hysterectomy 1982 Status post cholecystectomy Family History Family History Sibling Depression Family history of diabetes mellitus in first degree relative Cancer Hypertension Thyroid disorder Mother Hypertension Cancer Depression Heart disease Thyroid disorder Father Family history of coronary artery disease Hypertension Heart disease Depression Grandparent Heart disease Hypertension Social History Social History Smoking packs per day: 1 Smoking cigarettes per day: 20.0 Years smoked: 53 Smoking pack-years: 53.00 Smoking status: Current every day smoker Tobacco type: cigarettes Additional smoking assessment comments: Currently smoking 1/2ppd. Alcohol intake: never Substance use: never Substance use type: does not use Lack of Transportation: No Lack of Food: Sometimes True Current Housing: I Have Housing Concerned About Future Housing: No Difficulty Paying Gas/Electric Bills: Decline to Answer Difficulty Paying for Meds: YES Currently Unemployed: No Education: Associate Degree Difficulty w/ Childcare or Family Care: No Spiritual care concerns: No Exam 2 Narrative: APPEARANCE: No apparent distress. Head: atraumatic. EYES: EOMI, NOSE: Atraumatic NECK: Trachea midline RESPIRATORY: Tachypneic, subtle crackles in the bases, decreased lung sounds throughout CARDIOVASCULAR: Tachycardic, no peripheral edema ABDOMINAL: Non-distended soft nontender MUSCULOSKELETAl: No obvious deformities NEURO: Alert. Moving 4/4 extremities SKIN:: Warm, dry. Normal color PSYCHIATRIC: Normal affect Course Vital Signs Vital signs: Vital Signs Temperature 99.7 F H 06/03/25 15:51 Pulse Rate 107 H 06/03/25 15:51 Respiratory Rate 26 H 06/03/25 15:51 Blood Pressure 142/63 H 06/03/25 15:51 Pulse Oximetry 84 L 06/03/25 15:51 Oxygen Delivery Room Air 06/03/25 15:51 Temperature 98.6 F 06/03/25 16:06 Pulse Rate 100 06/03/25 16:06 Respiratory Rate 15 06/03/25 16:06 Blood Pressure 153/79 H 06/03/25 16:06 Pulse Oximetry 94 06/03/25 16:08 Oxygen Delivery Nasal Cannula 06/03/25 16:08 Oxygen Flow Rate 3 06/03/25 16:08 Medical Decision Making [facility] Narrative Medical decision making narrative: -Course: 69-year-old female with COPD on home oxygen presenting for worsening shortness of breath, productive cough and fevers. Chest x-ray shows pneumonia. Patient given breathing treatments and antibiotics for community-acquired pneumonia. Given 30 cc/kilogram bolus. Patient will be admitted the hospital for further management. -DDX includes but is not limited to: Pneumonia, COPD, viral syndrome Vital Signs Vital Signs: Vital Signs Temperature 99.7 F H 06/03/25 15:51 Pulse Rate 107 H 06/03/25 15:51 Respiratory Rate 26 H 06/03/25 15:51 Blood Pressure 142/63 H 06/03/25 15:51 Pulse Oximetry 84 L 06/03/25 15:51 Oxygen Delivery Room Air 06/03/25 15:51 Temperature 98.6 F 06/03/25 16:06 Pulse Rate 100 06/03/25 16:06 Respiratory Rate 15 06/03/25 16:06 Blood Pressure 153/79 H 06/03/25 16:06 Pulse Oximetry 94 06/03/25 16:08 Oxygen Delivery Nasal Cannula 06/03/25 16:08 Oxygen Flow Rate 3 06/03/25 16:08 Lab Data 06/03/25 16:28 06/03/25 16:28 Labs: Lab Results 06/03/25 06/03/25 Range/Units 16:28 16:29 WBC 16.2 H (4.5-10.0) K/mm3 RBC 4.82 (4.2-5.4) M/mm3 Hgb 14.0 (12.0-15.0) g/dL Hct 41.9 (37.0-47.0) % MCV 86.9 (80-100) fl MCH 29.0 (26-34) pg MCHC 33.4 (32-36) g/dl RDW 13.8 (11.5-14.5) % Plt Count 163 (150-375) k/mm3 MPV 10.3 (7.4-10.4) fl Immature Gran % (Auto) 0.4 (0-0.5) % Neut % (Auto) 84.5 H (45.5-73.1) % Lymph % (Auto) 7.1 L (18.3-44.2) % [place] % (Auto) 7.4 (2.6-8.5) % Eos % (Auto) 0.4 (0-4.4) % Baso % (Auto) 0.2 (0.2-1.2) % Lymph # (Auto) 1.15 (0.9-3.2) K/mm3 [place] # (Auto) 1.2 H (0.1-0.6) K/mm3 Eos # (Auto) 0.1 (0-0.3) K/mm3 Baso # (Auto) 0.0 (0.0-0.1) K/mm3 Abs Immat Gran (auto) 0.07 H (0.00-0.031) K/mm3 Absolute Neuts (auto) 13.6 H (1.3-6.7) K/mm3 Absolute Nucleated RBC 0.000 (0.0-0.012) K/mm3 Nucleated RBC % 0.0 (0.0-0.2) % Sodium 131 L (137-145) mmol/L Potassium 3.1 L (3.4-5.0) mmol/L Chloride 90 L (98-107) mmol/L Carbon Dioxide 35 H (22-30) mmol/L Anion Gap 6 (4-12) mmol/L BUN 8 D (7-17) mg/dL Creatinine 0.37 L (0.7-1.0) mg/dL Estim Creat Clear Calc Not Reportable Estimated GFR > 60 (59 - ) Glucose 112 H (65-110) mg/dL Calcium 8.7 (8.4-10.2) mg/dL Total Bilirubin 0.5 (0.2-1.3) mg/dL AST 25 (14-36) U/L ALT 14 (6-35) U/L Alkaline Phosphatase 126 (38-126) U/L Total Protein 7.0 (6.3-8.2) g/dL Albumin 3.6 (3.5-5.1) g/dL Influenza A (RT-PCR) Negative (Negative) Influenza B (RT-PCR) Negative (Negative) RSV (RT-PCR) Negative (Negative) SARS-CoV-2 RNA (RT-PCR) Negative (Negative) Discharge Plan Discharge Clinical Impression: CAP (community acquired pneumonia), COPD (chronic obstructive pulmonary disease) Patient Disposition: Home Condition: Stable Instructions: Antibiotic Form Patient Language: Sierra Leonean Prescriptions: No Action sertraline 100 mg tablet 100 mg PO DAILY Qty: 90 1RF Trelegy Ellipta 100-62.5-25 mcg blister with device 1 inh inhalation DAILY Qty: 60 5RF Rx Instructions: rinse and spit Ohtuvayre 3 mg/2.5 mL suspension for nebulization 2.5 ml inhalation QAM AND QPM Qty: 150 5RF doxycycline hyclate 100 mg capsule 100 mg PO BID PRN (Reason: COPD) 49 Days Qty: 14 0RF prednisone 50 mg tablet 50 mg PO DAILY Qty: 5 0RF valacyclovir 1 gram tablet 1,000 mg PO Q8H 10 Days Qty: 30 0RF ipratropium bromide 0.02 % solution 2.5 ml inhalation Q6H PRN (Reason: shortness of breath or wheezing) Qty: 300 5RF loratadine [Claritin] 10 mg tablet 10 mg PO DAILY Qty: 90 1RF levothyroxine 88 mcg tablet 88 mcg PO DAILY Qty: 90 1RF gabapentin 300 mg capsule 300 mg PO BID Qty: 180 1RF cholecalciferol (vitamin D3) 1,250 mcg (50,000 unit) capsule 1,250 mcg PO WEEKLY Qty: 8 0RF lisinopril 10 mg tablet 10 mg PO DAILY Qty: 90 1RF atorvastatin [Lipitor] 10 mg tablet 10 mg PO QHS Qty: 90 1RF amlodipine 10 mg tablet 10 mg PO DAILY Qty: 90 1RF metoprolol tartrate 50 mg tablet 50 mg PO BID Qty: 180 1RF albuterol sulfate 90 mcg/actuation HFA aerosol inhaler See Rx Instructions .ROUTE .COMPLEX Qty: 8.5 3RF Dose Instruction: INHALE 2 PUFFS EVERY 4-6 HOURS NEEDED FOR SHORTNESS OF BREATH Rx Instructions: INHALE 2 PUFFS EVERY 4-6 HOURS NEEDED FOR SHORTNESS OF BREATH Follow-up/Referrals: Samantha Brooks, [place] [Primary Care Provider, Internal Medicine]
--- NOTE | 2025-06-03 17:41 | PM.IMHP ---
H&P: HPI History of Present Illness Date/Time: 06/03/25 17:41 Chief Complaint: Cough, Fever, Shortness of Breath Narrative: 69 y/o F with PMH of COPD, hypothyroidism, hypertension, depression, and anxiety presents here with cough, fever, shortness of breath, and cold-like symptoms. The patient presents here from home on 06/03 for further evaluation of productive cough, fever, body aches, cold-like symptoms, and shortness of breath. Symptoms started last week and developed fever Saturday. She has a past medical history significant for COPD and supplemental oxygen use p.r.n. (2L NC). She arrived to the emergency department 84% on room air, was unable to carry her portable O2 tank due to her current symptoms. She was noted to be tripoding, pursed lip breathing, and significantly tachypneic/tachycardic. She was subsequently placed on 3L nasal cannula and improved to 94%. She additionally reports nausea, vomiting, poor appetite, urinary incontinence without saddle anesthesia, and lightheadedness. Denies diarrhea, chest pain, and palpitations. Initial VS at presentation: 99.7? F, HR 107, R 26, 142/63, and 84% on room air. Now 94% on 3L nasal cannula. ED workup showed: WBC 16.2, no anemia, sodium 131, potassium 3.1, creatinine 0.37 and GFR >60, glucose 112, viral PCR negative. CXR showed early bilateral pneumonia. EKG showed sinus tachycardia, rate 103. Review of Systems Review of Systems: All systems reviewed & are unremarkable except as noted in HPI and below PMFSH Past Medical History Medical History Headache Colitis Arthritis Allergies Hypothyroid Hypertension Depression COPD (chronic obstructive pulmonary disease) Anxiety Surgical History Surgical History History of lumbar surgery History of right inguinal hernia repair History of bladder suspension procedure H/O total hysterectomy 1982 Status post cholecystectomy Family History Family History Sibling Depression Family history of diabetes mellitus in first degree relative Cancer Hypertension Thyroid disorder Mother Hypertension Cancer Depression Heart disease Thyroid disorder Father Family history of coronary artery disease Hypertension Heart disease Depression Grandparent Heart disease Hypertension Social History Social History Smoking packs per day: 1 Smoking cigarettes per day: 20.0 Years smoked: 53 Smoking pack-years: 53.00 Smoking status: Current every day smoker Tobacco type: cigarettes Additional smoking assessment comments: Currently smoking 1/2ppd. Alcohol intake: never Substance use: never Substance use type: does not use Lack of Transportation: No Lack of Food: Never True Current Housing: I Have Housing Concerned About Future Housing: No Difficulty Paying Gas/Electric Bills: No Difficulty Paying for Meds: No Currently Unemployed: No Education: High School Diploma/GED Difficulty w/ Childcare or Family Care: No Spiritual care concerns: No Meds Home Medications and Allergies Home Medications ?Medication ?Instructions ?Recorded ?Confirmed ?Type ipratropium bromide 0.02 % 2.5 ml inhalation Q6H PRN 08/05/24 06/03/25 Rx solution for inhalation shortness of breath or wheezing #300 mL levothyroxine 88 mcg tablet 88 mcg PO DAILY #90 tabs 01/29/25 06/03/25 Rx gabapentin 300 mg capsule 300 mg PO BID #180 caps 02/03/25 06/03/25 Rx cholecalciferol (vitamin D3) 1,250 1,250 mcg PO WEEKLY #8 caps 02/05/25 06/03/25 Rx mcg (50,000 unit) capsule lisinopril 10 mg tablet 10 mg PO DAILY #90 tabs 03/15/25 06/03/25 Rx Trelegy Ellipta 100 mcg-62.5 1 inh inhalation DAILY #60 ea 03/26/25 06/03/25 Rx mcg-25 mcg powder for inhalation ([id number]) amlodipine 10 mg tablet 10 mg PO DAILY #90 tabs 04/26/25 06/03/25 Rx metoprolol tartrate 50 mg tablet 50 mg PO BID #180 tabs 04/26/25 06/03/25 Rx albuterol sulfate 90 mcg/actuation See Rx Instructions .Route 05/07/25 06/03/25 Rx aerosol inhaler .COMPLEX #8.5 ea loratadine 10 mg tablet (Claritin) 10 mg PO Q24H PRN allergy symptoms 06/03/25 06/03/25 History sertraline 100 mg tablet 50 mg PO DAILY 06/03/25 06/03/25 History Allergies Allergy/AdvReac Type Severity Reaction Status Date / Time ciprofloxacin Allergy Intermediate sob and Verified 06/03/25 15:43 nausea clindamycin Allergy Intermediate sob and Verified 06/03/25 15:43 nausea Penicillins Allergy Intermediate sob and Verified 06/03/25 15:43 nausea amitriptyline Allergy Mild Nausea Verified 06/03/25 15:43 escitalopram Allergy Mild nauseated Verified 06/03/25 15:43 shellfish derived AdvReac Hives Verified 06/03/25 15:43 Vital Signs Vital Signs - 24 hr 06/03/25 15:51 06/03/25 15:55 06/03/25 16:06 Temperature 99.7 F H 98.6 F Pulse Rate 107 H 100 Respiratory Rate 26 H 15 Blood Pressure 142/63 H 153/79 H Pulse Oximetry 84 L 92 94 Oxygen Delivery Room Air Nasal Cannula Oxygen Flow Rate 2 06/03/25 16:08 Temperature Pulse Rate Respiratory Rate Blood Pressure Pulse Oximetry 94 Oxygen Delivery Nasal Cannula Oxygen Flow Rate 3 Exam Const: General: comfortable and no acute distress Other: , female, nontoxic appearance HENMT: Face/Nose/Sinus: Normal nares present Mouth: Yes moist mucous membranes Eyes: General: appearance normal, both eyes and all related structures Sclera: sclerae normal Pupils: Equal, round and reactive pupils present EOM: EOMs intact bilaterally Resp: Effort & Inspection: normal respiratory effort Other: Bibasilar crackles, no wheezing, no tachypnea Cardio: Rate: regular rate Rhythm: regular rhythm Other: S1-S2 present without murmur, rub, ectopy GI: Other: Abdomen soft, nondistended, nontender. Normoactive bowel sounds in all quadrants. Skin: General skin exam: normal color and no rashes or lesions noted Wounds: no wounds Neuro: Speech: normal speech Motor exam (neuro): 5/5 motor strength present throughout Sensory Exam: normal sensation Other: A&O x4 Extrem: General: normal to inspection Psych: Mental Status: mental status grossly normal Affect: normal affect Other: good insight and judgment, pleasant H&P: Results Labs Labs: Short CBC 06/03/25 Range/Units 16:28 WBC 16.2 H (4.5-10.0) K/mm3 Hgb 14.0 (12.0-15.0) g/dL Hct 41.9 (37.0-47.0) % Plt Count 163 (150-375) k/mm3 BMP 06/03/25 16:28 Sodium 131 L Potassium 3.1 L Chloride 90 L Carbon Dioxide 35 H BUN 8 D Creatinine 0.37 L Glucose 112 H Calcium 8.7 Liver Function 06/03/25 Range/Units 16:28 Total Bilirubin 0.5 (0.2-1.3) mg/dL AST 25 (14-36) U/L ALT 14 (6-35) U/L Alkaline Phosphatase 126 (38-126) U/L Albumin 3.6 (3.5-5.1) g/dL Assessment and Plan Assessment and plan (1) Sepsis: Qualifiers: Sepsis type: sepsis due to unspecified organism Sepsis acute organ dysfunction status: with acute organ dysfunction Severe sepsis acute organ dysfunction type: acute respiratory failure Acute respiratory failure type: with hypoxia Severe sepsis shock status: without septic shock Qualified Code(s): A41.9 - Sepsis, unspecified organism; R65.20 - Severe sepsis without septic shock; J96.01 - Acute respiratory failure with hypoxia Code(s): A41.9 - Sepsis, unspecified organism Status: Acute Assessment and Plan: Patient met SIRS criteria upon arrival. Heart rate greater than 90, RR greater than 20, WBC greater than 12. Initial lactic 1.6 and procalcitonin 0.1. Blood cultures were obtained on 06/03, follow. Imaging concerning for bilateral developing pneumonia, patient's subjective symptoms consistent with pneumonia. Patient is additionally reporting any new urinary incontinence without saddle anesthesia, low back pain, or lower extremity symptoms -check UA. No hypotension. Worsening hypoxia likely related to pneumonia and COPD exacerbation. Continue supplemental oxygen. - IV fluids: 2L bolus - check UA - monitor hemodynamic stability, continue supplemental oxygen (2) CAP (community acquired pneumonia): Qualifiers: Laterality: unspecified laterality Qualified Code(s): J18.9 - Pneumonia, unspecified organism Code(s): J18.9 - Pneumonia, unspecified organism Status: Acute Assessment and Plan: - CXR: Early bilateral pneumonia - started on CAP tx: ceftriaxone and doxycycline on 06/03 - check MRSA PCR in sputum culture - Viral PCR negative on 06/03 - supportive care: Mucinex juan m, Tessalon Perles prn, DuoNebs juan m, Tylenol prn - continue supplemental oxygen to maintain O2 sat greater than 92%, wean as tolerated to baseline requirement (2L [place] PRN) (3) COPD with acute exacerbation: Code(s): J44.1 - Chronic obstructive pulmonary disease with (acute) exacerbation Status: Acute Assessment and Plan: - given Solu-Medrol IV in the ED, started on prednisone p.o. x5 days - DuoNeb scheduled - Mucinex scheduled - continue Trelegy (4) Hypertension: Qualifiers: Hypertension type: primary hypertension Qualified Code(s): I10 - Essential (primary) hypertension Code(s): I10 - Essential (primary) hypertension Status: Acute Assessment and Plan: - chronic, currently 132/63, stable - continue home medications: Amlodipine, lisinopril, metoprolol - monitor (5) Hypothyroid: Qualifiers: Hypothyroidism type: unspecified Qualified Code(s): E03.9 - Hypothyroidism, unspecified Code(s): E03.9 - Hypothyroidism, unspecified Status: Acute Assessment and Plan: - continue Synthroid - reviewed previous lab work, most recent TSH 14.8 in December of 2024. Update. Plan Diet: heart healthy GI Prophylaxis: n/a DVT Prophylaxis: SCDs IV fluids: 2L bolus Lines/Tubes: peripheral IV Code Status: full code Quality VTE Prophylaxis VTE prophylaxis: mechanical ordered Hospitalist MIPS Advance Care Plan I have confirmed that the patient's Advanced Care Plan is present, code status is documented, or surrogate decision maker is listed in patient medical record.: Yes Medication Reconciliation I have utilized all available resources to obtain, update and review the patients current medications (includes all prescriptions, OTC, herbals, cannabis, and nutritional supplements).: Yes
[2025-06-03 17:51] LABS: pH VBG 7.443 (7.300-7.400)
[2025-06-03] MEDS: cefTRIAXone 1 GM in SODIUM CHLORIDE 0.9% IV 50 ML 100 ML IVPB (18:06)
[2025-06-03] MEDS: ACETAMINOPHEN 500 MG TABLET 1000 MG PO (18:06)
[2025-06-03] MEDS: POTASSIUM CHLORIDE 20 MEQ ER TABLET 40 MEQ PO (18:06)
[2025-06-03] MEDS: DOXYCYCLINE IV 100 MG in SODIUM CHLORIDE 0.9% IV 100 ML IVPB (18:48)
[2025-06-03 18:49] LABS: Procalcitonin 0.1 ng/mL
--- NOTE | 2025-06-03 20:15 | ADMGEN ---
This patient, Romeo Aponte, was admitted to Medical Room 349-01. Patient/family oriented to hospital policies and general routines including ID bracelet, bed and alarms, visiting hours, pain management, procedures, bathroom and other care routines, personal items, smoking policy, room service/diet, and visiting hours. Information on how to activate the Rapid Response Team has been discussed. Patient/Family are encouraged to report perceived risks to care and to ask questions if they do not understand what they are told or what they should do.
[2025-06-03] MEDS: LACTATED RINGERS 1,000 ML 999 ML IV CONT (20:25)
[2025-06-03] MEDS: IPRATROPIUM 0.5 MG/ALBUTEROL SULFATE 2.5 MG (BASE) AMPUL.NEB 3 ML INHALATION (20:43)
[2025-06-03] MEDS: guaiFENesin 12 HR 600 MG TABCR PO (20:54)
[2025-06-03] MEDS: LACTATED RINGERS 200 ML 999 ML IV CONT (21:30)
[2025-06-04] VITALS (21 sets, daily range): BP systolic 136–154; BP diastolic 64–74; PULSE 83–114; RESP 16–20; TEMP 36.2–36.8; O2SAT 92–95; BMI 19.1
[2025-06-04 02:36] LABS: Add Urine Microscopic? NO; Appearance Urine Clear (Clear); Glucose Urine UA 3+ mg/dL (Negative); Leukocyte Esterase Ur Negative LEU/UL (Negative); Nitrate Urine Negative (Negative); Specific Grav Ur 1.028 (1.001-1.035)
--- NOTE | 2025-06-04 03:17 | PCRCNOTE ---
2000: Patient refused administration of 0200 nebulizer treatment. 0200: mild adventitious BS's, Oxygen demand from 3L down to 1L; good air movement and mobilization of secretions, no SOB or distress, comfortably resting; no treatment given.
[2025-06-04 03:45] LABS: MRSA (PCR) NOT DETECTED (NOT DETECTE)
[2025-06-04] MEDS: LEVOTHYROXINE SODIUM 88 MCG TABLET PO (05:36)
[2025-06-04 05:45] LABS: Hematocrit 36.0 % (37.0-47.0); Hemoglobin 11.9 g/dL (12.0-15.0); Immature Granulocyte Percent A 0.6 % (0-0.5); Lymphocytes Absolute Auto 0.75 K/mm3 (0.9-3.2); Mean Corpuscular HGB Conc 33.1 g/dl (32-36); Mean Corpuscular Hemoglobin 28.6 pg (26-34); Mean Corpuscular Volume 86.5 fl (80-100); Nucleated Red Blood Cells Absolute Auto 0.000 K/mm3 (0.0-0.012); Nucleated Red Blood Cells Perc 0.0 % (0.0-0.2); Platelet Count Result 170 k/mm3 (150-375); Red Blood Count 4.16 M/mm3 (4.2-5.4); White Blood Count 12.4 K/mm3 (4.5-10.0)
[2025-06-04] MEDS: DOXYCYCLINE IV 100 MG in SODIUM CHLORIDE 0.9% IV 100 ML IVPB ×2 (05:50→18:34)
[2025-06-04 05:56] LABS: Anion Gap 3 mmol/L (4-12); Blood Urea Nitrogen 10 mg/dL (7-17); Calcium 8.7 mg/dL (8.4-10.2); Carbon Dioxide 33 mmol/L (22-30); Chloride 98 mmol/L (98-107); Estimated Glomerular Filt Rate > 60; Glucose 191 mg/dL (65-110); Potassium 3.4 mmol/L (3.4-5.0); Sodium 134 mmol/L (137-145)
[2025-06-04 06:30] LABS: Thyroid Stimulating Hormone Reflex 0.683 uIU/mL (0.465-4.68)
[2025-06-04] MEDS: FLUTICASONE/UMECLIDIN/VILANTER 100-62.5-25 MCG ELLIPTA 1 PUFF INHALATION (08:46)
[2025-06-04] MEDS: IPRATROPIUM 0.5 MG/ALBUTEROL SULFATE 2.5 MG (BASE) AMPUL.NEB 3 ML INHALATION ×3 (08:46→19:46)
[2025-06-04] MEDS: GABAPENTIN 300 MG CAPSULE PO ×2 (08:59→17:39)
[2025-06-04] MEDS: SERTRALINE HCL 50 MG TABLET PO (09:00)
[2025-06-04] MEDS: METOPROLOL TARTRATE 50 MG TAB PO ×2 (09:00→22:33)
[2025-06-04] MEDS: guaiFENesin 12 HR 600 MG TABCR PO ×2 (09:00→22:33)
--- NOTE | 2025-06-04 12:43 | P.PNIM_ITS ---
Progress Note: A&P Assessment and Plan (1) Sepsis: Qualifiers: Sepsis type: sepsis due to unspecified organism Sepsis acute organ dysfunction status: with acute organ dysfunction Severe sepsis acute organ dysfunction type: acute respiratory failure Acute respiratory failure type: with hypoxia Severe sepsis shock status: without septic shock Qualified Code(s): A41.9 - Sepsis, unspecified organism; R65.20 - Severe sepsis without septic shock; J96.01 - Acute respiratory failure with hypoxia Code(s): A41.9 - Sepsis, unspecified organism Status: Acute Assessment and Plan: Still tachycardia WBC 12.4 from 16.4 CXR reviewed continue abx monitor cultures (2) CAP (community acquired pneumonia): Qualifiers: Laterality: unspecified laterality Qualified Code(s): J18.9 - Pneumonia, unspecified organism Code(s): J18.9 - Pneumonia, unspecified organism Status: Acute Assessment and Plan: - CXR: Early bilateral pneumonia - started on CAP tx: ceftriaxone and doxycycline on 06/03 - check MRSA PCR in sputum culture - Viral PCR negative on 06/03 - supportive care: Mucinex juan m, Tessalon Perles prn, DuoNebs juan m, Tylenol prn - continue supplemental oxygen to maintain O2 sat greater than 92%, wean as tolerated to baseline requirement (2L NC PRN) (3) COPD with acute exacerbation: Code(s): J44.1 - Chronic obstructive pulmonary disease with (acute) exacerbation Status: Acute Assessment and Plan: - given Solu-Medrol IV in the ED, started on prednisone p.o. x5 days - DuoNeb scheduled - Mucinex scheduled - continue Trelegy (4) Hypertension: Qualifiers: Hypertension type: primary hypertension Qualified Code(s): I10 - Essential (primary) hypertension Code(s): I10 - Essential (primary) hypertension Status: Acute Assessment and Plan: - chronic, currently 132/63, stable - continue home medications: Amlodipine, lisinopril, metoprolol - monitor (5) Hypothyroid: Qualifiers: Hypothyroidism type: unspecified Qualified Code(s): E03.9 - Hypothyroidism, unspecified Code(s): E03.9 - Hypothyroidism, unspecified Status: Acute Assessment and Plan: - continue Synthroid - reviewed previous lab work, most recent TSH 14.8 in December of 2024. Update. Plan Chronic hypoxemic reparatory failure patient on baseline oxygen 2 liters From COPD but not in exacerbation continue monitoring Diet: heart healthy DVT Prophylaxis: Sq Lovenox Code Status: full code Subjective Date/time seen: 06/04/25 12:43 Interval history: Comfortable at bedside Review of Systems Review of Systems: All systems reviewed & are unremarkable except as noted in HPI and below Exam Const: General: comfortable and no acute distress Other: , female, nontoxic appearance HENMT: Face/Nose/Sinus: Normal nares present Mouth: Yes moist mucous membranes Eyes: General: appearance normal, both eyes and all related structures Sclera: sclerae normal Pupils: Equal, round and reactive pupils present EOM: EOMs intact bilaterally Resp: Effort & Inspection: normal respiratory effort Other: Bibasilar crackles, no wheezing, no tachypnea Cardio: Rate: regular rate Rhythm: regular rhythm Other: S1-S2 present without murmur, rub, ectopy GI: Other: Abdomen soft, nondistended, nontender. Normoactive bowel sounds in all quadrants. Skin: General skin exam: normal color and no rashes or lesions noted Wounds: no wounds Neuro: Cranial nerves: Yes Equal, round and reactive pupils present Speech: normal speech Motor exam (neuro): 5/5 motor strength present throughout Sensory Exam: normal sensation Other: A&O x4 Extrem: General: normal to inspection Psych: Mental Status: mental status grossly normal Affect: normal affect Other: good insight and judgment, pleasant Objective Data Vital Signs Vital Signs: Vital Signs - 24 hr 06/03/25 15:51 06/03/25 15:55 06/03/25 16:06 Temperature 99.7 F H 98.6 F Pulse Rate 107 H 100 Respiratory Rate 26 H 15 Blood Pressure 142/63 H 153/79 H Pulse Oximetry 84 L 92 94 Oxygen Delivery Room Air Nasal Cannula Oxygen Flow Rate 2 06/03/25 16:08 06/03/25 18:12 06/03/25 19:55 Temperature 98.2 F Pulse Rate 110 H 105 H Respiratory Rate 20 15 Blood Pressure 119/66 126/56 L Pulse Oximetry 94 94 95 Oxygen Delivery Nasal Cannula Oxygen Flow Rate 3 06/03/25 20:20 06/03/25 20:37 06/03/25 20:45 Temperature Pulse Rate 107 H 99 Respiratory Rate 26 H Blood Pressure Pulse Oximetry 95 Oxygen Delivery Nasal Cannula Oxygen Flow Rate 3 06/03/25 20:51 06/03/25 21:07 06/04/25 00:00 Temperature 98 F Pulse Rate 99 108 H 86 Respiratory Rate 26 H 16 Blood Pressure 132/63 Pulse Oximetry 97 94 Oxygen Delivery Nasal Cannula Oxygen Flow Rate 2 06/04/25 02:00 06/04/25 04:00 06/04/25 05:42 Temperature 98.2 F Pulse Rate 85 107 H Respiratory Rate 18 Blood Pressure 152/74 H Pulse Oximetry 94 92 Oxygen Delivery Nasal Cannula Oxygen Flow Rate 1 06/04/25 08:00 06/04/25 08:48 06/04/25 08:50 Temperature Pulse Rate 109 H 96 Respiratory Rate 20 Blood Pressure Pulse Oximetry 93 Oxygen Delivery Nasal Cannula Oxygen Flow Rate 1 06/04/25 08:54 06/04/25 09:00 Temperature Pulse Rate 101 H 114 H Respiratory Rate 20 Blood Pressure Pulse Oximetry Oxygen Delivery Oxygen Flow Rate Intake/Output Intake/Output: Intake & Output 06/01/25 06/02/25 06/03/25 06/04/25 23:59 23:59 23:59 23:59 Intake Total 1350 930 Output Total 600 Balance 1350 330 Meds/Results Medications: Active Medications Generic Name Dose Route Start Last Admin Trade Name Freq PRN Reason Stop Dose Admin Acetaminophen 650 mg 06/03/25 17:42 Acetaminophen 325 Mg Tablet PO Q6H PRN Pain or Fever Albuterol/Ipratropium 3 ml 06/03/25 20:00 06/04/25 08:46 Ipratropium 0.5 Mg/Albuterol Sulfate 2.5 Mg (Base) Ampul.Neb 3 Ml INHALATION 3 ml Q6HRT JUAN M Administration Amlodipine Besylate 10 mg 06/04/25 09:00 06/04/25 08:59 Amlodipine Besylate 10 Mg Tablet PO 10 mg DAILY JUAN M Administration Benzonatate 100 mg 06/03/25 17:42 Benzonatate 100 Mg Capsule PO Q8H PRN Cough Fluticasone/Umeclidinium/Vilanterol 1 puff 06/04/25 08:00 06/04/25 08:46 Fluticasone/Umeclidin/Vilanter 100-62.5-25 Mcg Ellipta INHALATION 1 puff DAILYRT JUAN M Administration Gabapentin 300 mg 06/04/25 09:00 06/04/25 08:59 Gabapentin 300 Mg Capsule PO 300 mg BID JUAN M Administration Guaifenesin 600 mg 06/03/25 21:00 06/04/25 09:00 Guaifenesin 12 Hr 600 Mg Tabcr PO 600 mg Q12HR JUAN M Administration Ceftriaxone Sodium 1 gm/ 50 mls @ 100 mls/hr 06/04/25 18:00 Sodium Chloride IVPB Q24H JUAN M Doxycycline Hyclate 100 mg/ 100 mls @ 100 mls/hr 06/04/25 07:00 06/04/25 07:00 Sodium Chloride IVPB 06/08/25 07:59 Infused Q12H [facility] Infusion Levothyroxine Sodium 88 mcg 06/04/25 06:30 06/04/25 05:36 Levothyroxine Sodium 88 Mcg Tablet PO 88 mcg DAILY@0630 [facility] Administration Lisinopril 10 mg 06/04/25 09:00 06/04/25 08:59 Lisinopril 10 Mg Tablet PO 10 mg DAILY JUAN M Administration Loratadine 10 mg 06/03/25 23:04 Loratadine 10 Mg Tablet PO Q24H PRN allergy symptoms Metoprolol Tartrate 50 mg 06/04/25 09:00 06/04/25 09:00 Metoprolol Tartrate 50 Mg Tab PO 50 mg Q12HR [facility] Administration Non-Formulary Medication 1,250 mcg 06/05/25 09:00 Cholecalciferol (Vitamin D3) PO 07/05/25 08:59 Sa@0900 [facility] Prednisone 40 mg 06/04/25 08:00 06/04/25 09:00 Prednisone 20 Mg Tablet PO 06/08/25 08:01 40 mg DAILY@0800 [facility] Administration Sertraline HCl 50 mg 06/04/25 09:00 06/04/25 09:00 Sertraline Hcl 50 Mg Tablet PO 50 mg DAILY [facility] Administration Radiology Results: ITS Impressions Chest X-Ray 06/03/25 16:10 Impression: Early bilateral pneumonia Labs Labs: Laboratory Results - last 24 hr 06/03/25 06/03/25 06/03/25 16:28 16:29 18:07 WBC 16.2 H RBC 4.82 Hgb 14.0 Hct 41.9 MCV 86.9 MCH 29.0 MCHC 33.4 RDW 13.8 Plt Count 163 MPV 10.3 Immature Gran % (Auto) 0.4 Neut % (Auto) 84.5 H Lymph % (Auto) 7.1 L Shannon % (Auto) 7.4 Eos % (Auto) 0.4 Baso % (Auto) 0.2 Lymph # (Auto) 1.15 Shannon # (Auto) 1.2 H Eos # (Auto) 0.1 Baso # (Auto) 0.0 Abs Immat Gran (auto) 0.07 H Absolute Neuts (auto) 13.6 H Absolute Nucleated RBC 0.000 Nucleated RBC % 0.0 VBG pH 7.443 H* VBG pCO2 49.8 H VBG pO2 59.5 H VBG HCO3 33.3 H O2 Delivery Device Not Reportable O2 Liters/Min Not Reportable FiO2 32 Sodium 131 L Potassium 3.1 L Chloride 90 L Carbon Dioxide 35 H Anion Gap 6 BUN 8 D Creatinine 0.37 L Estim Creat Clear Calc Not Reportable Estimated GFR > 60 Glucose 112 H Lactic Acid 1.6 Calcium 8.7 Total Bilirubin 0.5 AST 25 ALT 14 Alkaline Phosphatase 126 Total Protein 7.0 Albumin 3.6 Procalcitonin 0.1 TSH (Reflex) Urine Color Urine Appearance Urine pH Ur Specific [place] Urine Protein Urine Glucose (UA) Urine Ketones Ur Blood (Man) Urine Nitrate Urine Bilirubin Urine Urobilinogen Leukocyte Esterase Rfl Nasal MRSA (PCR) Influenza A (RT-PCR) Negative Influenza B (RT-PCR) Negative RSV (RT-PCR) Negative SARS-CoV-2 RNA (RT-PCR) Negative 06/04/25 06/04/25 02:28 05:38 WBC 12.4 H RBC 4.16 L Hgb 11.9 L Hct 36.0 L MCV 86.5 MCH 28.6 MCHC 33.1 RDW 13.8 Plt Count 170 MPV 10.4 Immature Gran % (Auto) 0.6 H Neut % (Auto) 91.3 H Lymph % (Auto) 6.0 L Shannon % (Auto) 1.9 L Eos % (Auto) 0.0 Baso % (Auto) 0.2 Lymph # (Auto) 0.75 L Shannon # (Auto) 0.2 Eos # (Auto) 0.0 Baso # (Auto) 0.0 Abs Immat Gran (auto) 0.08 H Absolute Neuts (auto) 11.4 H Absolute Nucleated RBC 0.000 Nucleated RBC % 0.0 VBG pH VBG pCO2 VBG pO2 VBG HCO3 O2 Delivery Device O2 Liters/Min FiO2 Sodium 134 L Potassium 3.4 Chloride 98 Carbon Dioxide 33 H Anion Gap 3 L BUN 10 Creatinine 0.33 L Estim Creat Clear Calc Not Reportable Estimated GFR > 60 Glucose 191 H Lactic Acid Calcium 8.7 Total Bilirubin AST ALT Alkaline Phosphatase Total Protein Albumin Procalcitonin TSH (Reflex) 0.683 Urine Color Yellow Urine Appearance Clear Urine pH 6.0 Ur Specific [place] 1.028 Urine Protein Negative Urine Glucose (UA) 3+ H Urine Ketones Negative Ur Blood (Man) Negative Urine Nitrate Negative Urine Bilirubin Negative Urine Urobilinogen 0.2 Leukocyte Esterase Rfl Negative Nasal MRSA (PCR) Not detected Influenza A (RT-PCR) Influenza B (RT-PCR) RSV (RT-PCR) SARS-CoV-2 RNA (RT-PCR) Quality VTE Prophylaxis VTE prophylaxis: mechanical ordered
[2025-06-04] MEDS: cefTRIAXone 1 GM in SODIUM CHLORIDE 0.9% IV 50 ML 100 ML IVPB (17:39)
[2025-06-04] MEDS: BENZONATATE 100 MG CAPSULE PO (22:37)
[2025-06-05] VITALS (18 sets, daily range): BP systolic 114–136; BP diastolic 70–74; PULSE 57–113; RESP 16–20; TEMP 36.2–36.6; O2SAT 73–96
[2025-06-05] MEDS: ACETAMINOPHEN 325 MG TABLET 650 MG PO (00:13)
[2025-06-05] MEDS: IPRATROPIUM 0.5 MG/ALBUTEROL SULFATE 2.5 MG (BASE) AMPUL.NEB 3 ML INHALATION ×4 (02:33→20:03)
[2025-06-05] MEDS: LEVOTHYROXINE SODIUM 88 MCG TABLET PO (05:07)
[2025-06-05 05:36] LABS: Hematocrit 35.8 % (37.0-47.0); Hemoglobin 11.7 g/dL (12.0-15.0); Immature Granulocyte Percent A 0.6 % (0-0.5); Lymphocytes Absolute Auto 2.45 K/mm3 (0.9-3.2); Mean Corpuscular HGB Conc 32.7 g/dl (32-36); Mean Corpuscular Hemoglobin 29.0 pg (26-34); Mean Corpuscular Volume 88.6 fl (80-100); Nucleated Red Blood Cells Absolute Auto 0.000 K/mm3 (0.0-0.012); Nucleated Red Blood Cells Perc 0.0 % (0.0-0.2); Platelet Count Result 188 k/mm3 (150-375); Red Blood Count 4.04 M/mm3 (4.2-5.4); White Blood Count 17.3 K/mm3 (4.5-10.0)
[2025-06-05 06:10] LABS: Alanine Aminotransferase 26 U/L (6-35); Albumin Level 3.0 g/dL (3.5-5.1); Alkaline Phosphatase 95 U/L (38-126); Anion Gap 3 mmol/L (4-12); Aspartate Amino Transferase 44 U/L (14-36); Bilirubin,Total 0.2 mg/dL (0.2-1.3); Blood Urea Nitrogen 12 mg/dL (7-17); Calcium 8.6 mg/dL (8.4-10.2); Carbon Dioxide 32 mmol/L (22-30); Chloride 98 mmol/L (98-107); Estimated Glomerular Filt Rate > 60; Glucose 121 mg/dL (65-110); Magnesium 1.8 mg/dL (1.6-2.3); Potassium 3.2 mmol/L (3.4-5.0); Sodium 133 mmol/L (137-145); Total Protein 5.9 g/dL (6.3-8.2)
[2025-06-05] MEDS: DOXYCYCLINE IV 100 MG in SODIUM CHLORIDE 0.9% IV 100 ML IVPB ×2 (06:28→18:41)
[2025-06-05] MEDS: FLUTICASONE/UMECLIDIN/VILANTER 100-62.5-25 MCG ELLIPTA 1 PUFF INHALATION (07:08)
[2025-06-05] MEDS: SERTRALINE HCL 50 MG TABLET PO (08:34)
[2025-06-05] MEDS: METOPROLOL TARTRATE 50 MG TAB PO ×2 (08:35→21:32)
[2025-06-05] MEDS: guaiFENesin 12 HR 600 MG TABCR PO ×2 (08:35→21:32)
[2025-06-05] MEDS: GABAPENTIN 300 MG CAPSULE PO ×2 (08:35→17:44)
--- NOTE | 2025-06-05 12:57 | PM.IMPN ---
Progress Note: A&P Assessment and Plan (1) Sepsis: Qualifiers: Sepsis type: sepsis due to unspecified organism Sepsis acute organ dysfunction status: with acute organ dysfunction Severe sepsis acute organ dysfunction type: acute respiratory failure Acute respiratory failure type: with hypoxia Severe sepsis shock status: without septic shock Qualified Code(s): A41.9 - Sepsis, unspecified organism; R65.20 - Severe sepsis without septic shock; J96.01 - Acute respiratory failure with hypoxia Code(s): A41.9 - Sepsis, unspecified organism Status: Acute Assessment and Plan: Still tachycardia WBC 12.4 from 16.4 CXR reviewed continue abx monitor cultures (2) CAP (community acquired pneumonia): Qualifiers: Laterality: unspecified laterality Qualified Code(s): J18.9 - Pneumonia, unspecified organism Code(s): J18.9 - Pneumonia, unspecified organism Status: Acute Assessment and Plan: - CXR: Early bilateral pneumonia - started on CAP tx: ceftriaxone and doxycycline on 06/03 - check MRSA PCR in sputum culture - Viral PCR negative on 06/03 - supportive care: Mucinex juan m, Tessalon Perles prn, DuoNebs juan m, Tylenol prn - continue supplemental oxygen to maintain O2 sat greater than 92%, wean as tolerated to baseline requirement (2L NC PRN) (3) COPD with acute exacerbation: Code(s): J44.1 - Chronic obstructive pulmonary disease with (acute) exacerbation Status: Acute Assessment and Plan: patient is no in exacerbation and steroid discontinued - DuoNeb scheduled - Mucinex scheduled - continue Trelegy (4) Hypertension: Qualifiers: Hypertension type: primary hypertension Qualified Code(s): I10 - Essential (primary) hypertension Code(s): I10 - Essential (primary) hypertension Status: Acute Assessment and Plan: - chronic, currently 132/63, stable - continue home medications: Amlodipine, lisinopril, metoprolol - monitor (5) Hypothyroid: Qualifiers: Hypothyroidism type: unspecified Qualified Code(s): E03.9 - Hypothyroidism, unspecified Code(s): E03.9 - Hypothyroidism, unspecified Status: Acute Assessment and Plan: - continue Synthroid - reviewed previous lab work, most recent TSH 14.8 in December of 2024. Update. Plan Chronic hypoxemic reparatory failure patient on baseline oxygen 2 liters From COPD but not in exacerbation continue monitoring Diet: heart healthy DVT Prophylaxis: Sq Lovenox Code Status: full code Subjective Date/time seen: 06/05/25 12:57 Interval history: Comfortable at bedside patient noted that she is very weak today and wants to be observed one more day Review of Systems Review of Systems: All systems reviewed & are unremarkable except as noted in HPI and below Exam Const: General: comfortable and no acute distress Other: , female, nontoxic appearance HENMT: Face/Nose/Sinus: Normal nares present Mouth: Yes moist mucous membranes Eyes: General: appearance normal, both eyes and all related structures Sclera: sclerae normal Pupils: Equal, round and reactive pupils present EOM: EOMs intact bilaterally Resp: Effort & Inspection: normal respiratory effort Other: Bibasilar crackles, no wheezing, no tachypnea Cardio: Rate: regular rate Rhythm: regular rhythm Other: S1-S2 present without murmur, rub, ectopy GI: Other: Abdomen soft, nondistended, nontender. Normoactive bowel sounds in all quadrants. Skin: General skin exam: normal color and no rashes or lesions noted Wounds: no wounds Neuro: Cranial nerves: Yes Equal, round and reactive pupils present Speech: normal speech Motor exam (neuro): 5/5 motor strength present throughout Sensory Exam: normal sensation Other: A&O x4 Extrem: General: normal to inspection Psych: Mental Status: mental status grossly normal Affect: normal affect Other: good insight and judgment, pleasant Objective Data Vital Signs Vital Signs: Vital Signs - 24 hr 06/04/25 13:20 06/04/25 13:28 06/04/25 14:00 Temperature 98.3 F Pulse Rate 92 95 101 H Respiratory Rate 20 20 20 Blood Pressure 136/64 Pulse Oximetry 92 Oxygen Delivery Oxygen Flow Rate 06/04/25 16:00 06/04/25 16:23 06/04/25 19:47 Temperature Pulse Rate 99 95 98 Respiratory Rate 20 18 Blood Pressure Pulse Oximetry Oxygen Delivery Oxygen Flow Rate 06/04/25 19:47 06/04/25 19:54 06/04/25 20:00 Temperature Pulse Rate 98 102 H Respiratory Rate 18 16 Blood Pressure Pulse Oximetry 94 94 Oxygen Delivery Nasal Cannula Nasal Cannula Oxygen Flow Rate 1 2 06/04/25 20:00 06/04/25 22:00 06/04/25 22:33 Temperature 97.1 F L Pulse Rate 101 H 108 H 86 Respiratory Rate 16 Blood Pressure 154/66 H Pulse Oximetry 93 Oxygen Delivery Oxygen Flow Rate 06/05/25 00:00 06/05/25 02:36 06/05/25 03:32 Temperature Pulse Rate 74 96 Respiratory Rate Blood Pressure Pulse Oximetry 83 L 94 Oxygen Delivery Nasal Cannula Nasal Cannula Oxygen Flow Rate 2 2 06/05/25 04:00 06/05/25 04:54 06/05/25 07:08 Temperature 97.1 F L Pulse Rate 74 81 100 Respiratory Rate 18 18 Blood Pressure 131/74 Pulse Oximetry 96 Oxygen Delivery Oxygen Flow Rate 06/05/25 07:09 06/05/25 08:35 Temperature Pulse Rate 100 91 Respiratory Rate 16 Blood Pressure Pulse Oximetry 90 Oxygen Delivery Nasal Cannula Oxygen Flow Rate 2 Intake/Output Intake/Output: Intake & Output 06/02/25 06/03/25 06/04/25 06/05/25 23:59 23:59 23:59 23:59 Intake Total 1350 2110 440 Output Total 600 800 Balance 1350 1510 -360 Meds/Results Medications: Active Medications Generic Name Dose Route Start Last Admin Trade Name Freq PRN Reason Stop Dose Admin Acetaminophen 650 mg 06/03/25 17:42 06/05/25 00:13 Acetaminophen 325 Mg Tablet PO 650 mg Q6H PRN Administration Pain or Fever Albuterol 2 puff 06/04/25 16:18 Albuterol Sulfate (*Sp) Aerosol 1 Puff INHALATION Q6HRT PRN shortness of breath Albuterol/Ipratropium 3 ml 06/03/25 20:00 06/05/25 07:07 Ipratropium 0.5 Mg/Albuterol Sulfate 2.5 Mg (Base) Ampul.Neb 3 Ml INHALATION 3 ml Q6HRT JUAN M Administration Amlodipine Besylate 10 mg 06/04/25 09:00 06/05/25 08:35 Amlodipine Besylate 10 Mg Tablet PO 10 mg DAILY JUAN M Administration Benzonatate 100 mg 06/03/25 17:42 06/04/25 22:37 Benzonatate 100 Mg Capsule PO 100 mg Q8H PRN Administration Cough Ergocalciferol 1,250 mcg 06/05/25 09:00 Ergocalciferol (Vitamin D2) 1,250 Mcg (50,000 Units) Capsule PO Sa@0900 COUNT INCLUDES THE [facility] Fluticasone/Umeclidinium/Vilanterol 1 puff 06/04/25 08:00 06/05/25 07:08 Fluticasone/Umeclidin/Vilanter 100-62.5-25 Mcg Ellipta INHALATION 1 puff DAILYRT JUAN M Administration Gabapentin 300 mg 06/04/25 09:00 06/05/25 08:35 Gabapentin 300 Mg Capsule PO 300 mg BID JUAN M Administration Guaifenesin 600 mg 06/03/25 21:00 06/05/25 08:35 Guaifenesin 12 Hr 600 Mg Tabcr PO 600 mg Q12HR JUAN M Administration Guaifenesin/Dextromethorphan 10 ml 06/05/25 04:49 06/05/25 08:41 Guaifenesin/Dextromethorphan 10 Ml Udc PO 10 ml Q4H PRN Administration Cough Ceftriaxone Sodium 1 gm/ 50 mls @ 100 mls/hr 06/04/25 18:00 06/04/25 18:25 Sodium Chloride IVPB Infused Q24H JUAN M Infusion Doxycycline Hyclate 100 mg/ 100 mls @ 100 mls/hr 06/04/25 07:00 06/05/25 06:28 Sodium Chloride IVPB 06/08/25 07:59 100 mls/hr Q12H JUAN M Administration Levothyroxine Sodium 88 mcg 06/04/25 06:30 06/05/25 05:07 Levothyroxine Sodium 88 Mcg Tablet PO 88 mcg DAILY@0630 JUAN M Administration Lisinopril 10 mg 06/04/25 09:00 06/05/25 08:35 Lisinopril 10 Mg Tablet PO 10 mg DAILY JUAN M Administration Loratadine 10 mg 06/03/25 23:04 Loratadine 10 Mg Tablet PO Q24H PRN allergy symptoms Metoprolol Tartrate 50 mg 06/04/25 09:00 06/05/25 08:35 Metoprolol Tartrate 50 Mg Tab PO 50 mg Q12HR JUAN M Administration Sertraline HCl 50 mg 06/04/25 09:00 06/05/25 08:34 Sertraline Hcl 50 Mg Tablet PO 50 mg DAILY JUAN M Administration Radiology Results: ITS Impressions Chest X-Ray 06/03/25 16:10 Impression: Early bilateral pneumonia Labs Labs: Laboratory Results - last 24 hr 06/05/25 05:27 WBC 17.3 H RBC 4.04 L Hgb 11.7 L Hct 35.8 L MCV 88.6 MCH 29.0 MCHC 32.7 RDW 14.0 Plt Count 188 MPV 10.8 H Immature Gran % (Auto) 0.6 H Neut % (Auto) 78.8 H Lymph % (Auto) 14.2 L [place] % (Auto) 6.0 Eos % (Auto) 0.2 Baso % (Auto) 0.2 Lymph # (Auto) 2.45 [place] # (Auto) 1.0 H Eos # (Auto) 0.0 Baso # (Auto) 0.0 Abs Immat Gran (auto) 0.10 H Absolute Neuts (auto) 13.6 H Absolute Nucleated RBC 0.000 Nucleated RBC % 0.0 Sodium 133 L Potassium 3.2 L Chloride 98 Carbon Dioxide 32 H Anion Gap 3 L BUN 12 Creatinine 0.36 L Estim Creat Clear Calc Not Reportable Estimated GFR > 60 Glucose 121 H Lactic Acid 1.6 Calcium 8.6 Magnesium 1.8 Total Bilirubin 0.2 AST 44 H ALT 26 Alkaline Phosphatase 95 Total Protein 5.9 L Albumin 3.0 L Quality VTE Prophylaxis VTE prophylaxis: mechanical ordered
[2025-06-05] MEDS: ERGOCALCIFEROL (VITAMIN D2) 1,250 MCG (50,000 UNITS) CAPSULE 1250 MCG PO (15:30)
[2025-06-05] MEDS: cefTRIAXone 1 GM in SODIUM CHLORIDE 0.9% IV 50 ML 100 ML IVPB (17:44)
[2025-06-06] VITALS (21 sets, daily range): BP systolic 115–156; BP diastolic 66–86; PULSE 60–100; RESP 16–20; TEMP 36.3–37; O2SAT 94–98
[2025-06-06] MEDS: IPRATROPIUM 0.5 MG/ALBUTEROL SULFATE 2.5 MG (BASE) AMPUL.NEB 3 ML INHALATION ×4 (01:41→19:41)
[2025-06-06] MEDS: LEVOTHYROXINE SODIUM 88 MCG TABLET PO (05:44)
[2025-06-06 05:51] LABS: Hematocrit 37.6 % (37.0-47.0); Hemoglobin 12.3 g/dL (12.0-15.0); Immature Granulocyte Percent A 0.6 % (0-0.5); Lymphocytes Absolute Auto 2.47 K/mm3 (0.9-3.2); Mean Corpuscular HGB Conc 32.7 g/dl (32-36); Mean Corpuscular Hemoglobin 28.8 pg (26-34); Mean Corpuscular Volume 88.1 fl (80-100); Nucleated Red Blood Cells Absolute Auto 0.000 K/mm3 (0.0-0.012); Nucleated Red Blood Cells Perc 0.0 % (0.0-0.2); Platelet Count Result 201 k/mm3 (150-375); Red Blood Count 4.27 M/mm3 (4.2-5.4); White Blood Count 9.8 K/mm3 (4.5-10.0)
[2025-06-06 06:21] LABS: Alanine Aminotransferase 23 U/L (6-35); Albumin Level 3.0 g/dL (3.5-5.1); Alkaline Phosphatase 101 U/L (38-126); Anion Gap 3 mmol/L (4-12); Aspartate Amino Transferase 30 U/L (14-36); Bilirubin,Total 0.2 mg/dL (0.2-1.3); Blood Urea Nitrogen 8 mg/dL (7-17); Calcium 8.4 mg/dL (8.4-10.2); Carbon Dioxide 36 mmol/L (22-30); Chloride 94 mmol/L (98-107); Estimated Glomerular Filt Rate > 60; Glucose 90 mg/dL (65-110); Magnesium 1.6 mg/dL (1.6-2.3); Potassium 3.3 mmol/L (3.4-5.0); Sodium 133 mmol/L (137-145); Total Protein 6.0 g/dL (6.3-8.2)
[2025-06-06] MEDS: DOXYCYCLINE IV 100 MG in SODIUM CHLORIDE 0.9% IV 100 ML IVPB ×2 (08:07→18:08)
[2025-06-06] MEDS: GABAPENTIN 300 MG CAPSULE PO ×2 (08:07→17:12)
[2025-06-06] MEDS: SERTRALINE HCL 50 MG TABLET PO (08:08)
[2025-06-06] MEDS: METOPROLOL TARTRATE 50 MG TAB PO ×2 (08:08→20:02)
[2025-06-06] MEDS: guaiFENesin 12 HR 600 MG TABCR PO ×2 (08:08→20:02)
[2025-06-06] MEDS: FLUTICASONE/UMECLIDIN/VILANTER 100-62.5-25 MCG ELLIPTA 1 PUFF INHALATION (08:45)
[2025-06-06] MEDS: BENZONATATE 100 MG CAPSULE PO ×2 (11:21→20:01)
--- NOTE | 2025-06-06 14:34 | P.PNIM_ITS ---
Progress Note: A&P Assessment and Plan (1) Sepsis: Qualifiers: Sepsis type: sepsis due to unspecified organism Sepsis acute organ dysfunction status: with acute organ dysfunction Severe sepsis acute organ dysfunction type: acute respiratory failure Acute respiratory failure type: with hypoxia Severe sepsis shock status: without septic shock Qualified Code(s): A41.9 - Sepsis, unspecified organism; R65.20 - Severe sepsis without septic shock; J96.01 - Acute respiratory failure with hypoxia Code(s): A41.9 - Sepsis, unspecified organism Status: Acute Assessment and Plan: Still tachycardia WBC 9.8 from 16.4 CXR reviewed continue abx monitor cultures (2) CAP (community acquired pneumonia): Qualifiers: Laterality: unspecified laterality Qualified Code(s): J18.9 - Pneumonia, unspecified organism Code(s): J18.9 - Pneumonia, unspecified organism Status: Acute Assessment and Plan: - CXR: Early bilateral pneumonia - started on CAP tx: ceftriaxone and doxycycline on 06/03 - check MRSA PCR in sputum culture - Viral PCR negative on 06/03 - supportive care: Mucinex juan m, Tessalon Perles prn, DuoNebs juan m, Tylenol prn - continue supplemental oxygen to maintain O2 sat greater than 92%, wean as tolerated to baseline requirement (2L NC PRN) (3) COPD with acute exacerbation: Code(s): J44.1 - Chronic obstructive pulmonary disease with (acute) exacerbation Status: Acute Assessment and Plan: patient is no in exacerbation and steroid discontinued - DuoNeb scheduled - Mucinex scheduled - continue Trelegy (4) Hypertension: Qualifiers: Hypertension type: primary hypertension Qualified Code(s): I10 - Essential (primary) hypertension Code(s): I10 - Essential (primary) hypertension Status: Acute Assessment and Plan: - chronic, currently 132/63, stable - continue home medications: Amlodipine, lisinopril, metoprolol - monitor (5) Hypothyroid: Qualifiers: Hypothyroidism type: unspecified Qualified Code(s): E03.9 - Hypothyroidism, unspecified Code(s): E03.9 - Hypothyroidism, unspecified Status: Acute Assessment and Plan: - continue Synthroid - reviewed previous lab work, most recent TSH 14.8 in December of 2024. Update. Plan Chronic hypoxemic reparatory failure patient on baseline oxygen 2 liters From COPD but not in exacerbation continue monitoring Melena stool Complained of 3 episodes od melena stool FOBT ordered follow up results Vital signs and hb stable Diet: heart healthy DVT Prophylaxis: Sq Lovenox Code Status: full code Subjective Date/time seen: 06/06/25 14:34 Interval history: Comfortable at bedside Complained of 3 episodes of black stools Review of Systems Review of Systems: All systems reviewed & are unremarkable except as noted in HPI and below Exam Const: General: comfortable and no acute distress Other: , female, nontoxic appearance HENMT: Face/Nose/Sinus: Normal nares present Mouth: Yes moist mucous membranes Eyes: General: appearance normal, both eyes and all related structures Sclera: sclerae normal Pupils: Equal, round and reactive pupils present EOM: EOMs intact bilaterally Resp: Effort & Inspection: normal respiratory effort Other: Bibasilar crackles, no wheezing, no tachypnea Cardio: Rate: regular rate Rhythm: regular rhythm Other: S1-S2 present without murmur, rub, ectopy GI: Other: Abdomen soft, nondistended, nontender. Normoactive bowel sounds in all quadrants. Skin: General skin exam: normal color and no rashes or lesions noted Wounds: no wounds Neuro: Cranial nerves: Yes Equal, round and reactive pupils present Speech: normal speech Motor exam (neuro): 5/5 motor strength present throughout Sensory Exam: normal sensation Other: A&O x4 Extrem: General: normal to inspection Psych: Mental Status: mental status grossly normal Affect: normal affect Other: good insight and judgment, pleasant Objective Data Vital Signs Vital Signs: Vital Signs - 24 hr 06/05/25 16:00 06/05/25 20:00 06/05/25 20:00 Temperature Pulse Rate 87 113 H Respiratory Rate Blood Pressure Pulse Oximetry 92 Oxygen Delivery Nasal Cannula Oxygen Flow Rate 2 Fraction of Inspired Oxygen 06/05/25 20:10 06/05/25 20:10 06/05/25 20:20 Temperature Pulse Rate 57 L 57 L 59 L Respiratory Rate 20 20 20 Blood Pressure Pulse Oximetry 95 Oxygen Delivery Nasal Cannula Oxygen Flow Rate 2 Fraction of Inspired Oxygen 28 06/05/25 21:32 06/05/25 22:00 06/06/25 00:00 Temperature 97.2 F L Pulse Rate 86 90 66 Respiratory Rate 16 Blood Pressure 136/71 Pulse Oximetry 95 Oxygen Delivery Oxygen Flow Rate Fraction of Inspired Oxygen 06/06/25 01:41 06/06/25 01:50 06/06/25 04:00 Temperature Pulse Rate 85 87 70 Respiratory Rate 20 20 Blood Pressure Pulse Oximetry Oxygen Delivery Oxygen Flow Rate Fraction of Inspired Oxygen 06/06/25 06:00 06/06/25 08:01 06/06/25 08:07 Temperature 97.3 F L 97.5 F L Pulse Rate 60 88 100 Respiratory Rate 18 20 18 Blood Pressure 156/86 H 142/78 H Pulse Oximetry 96 96 96 Oxygen Delivery Nasal Cannula Oxygen Flow Rate 2 Fraction of Inspired Oxygen 28 06/06/25 08:07 06/06/25 08:08 06/06/25 08:48 Temperature Pulse Rate 88 88 92 Respiratory Rate 18 Blood Pressure Pulse Oximetry 96 Oxygen Delivery Nasal Cannula Oxygen Flow Rate 2 Fraction of Inspired Oxygen 06/06/25 08:48 06/06/25 08:58 06/06/25 12:00 Temperature Pulse Rate 92 100 85 Respiratory Rate 18 18 Blood Pressure Pulse Oximetry Oxygen Delivery Oxygen Flow Rate Fraction of Inspired Oxygen 06/06/25 13:17 06/06/25 13:31 06/06/25 14:00 Temperature 98.6 F Pulse Rate 81 81 81 Respiratory Rate 16 16 16 Blood Pressure 115/66 Pulse Oximetry 98 Oxygen Delivery Oxygen Flow Rate Fraction of Inspired Oxygen Intake/Output Intake/Output: Intake & Output 06/03/25 06/04/25 06/05/25 06/06/25 23:59 23:59 23:59 23:59 Intake Total 1350 2110 2670 1580 Output Total 600 1000 2000 Balance 1350 1510 1670 -420 Meds/Results Medications: Active Medications Generic Name Dose Route Start Last Admin Trade Name Freq PRN Reason Stop Dose Admin Acetaminophen 650 mg 06/03/25 17:42 06/05/25 00:13 Acetaminophen 325 Mg Tablet PO 650 mg Q6H PRN Administration Pain or Fever Albuterol 2 puff 06/04/25 16:18 Albuterol Sulfate (*Sp) Aerosol 1 Puff INHALATION Q6HRT PRN shortness of breath Albuterol/Ipratropium 3 ml 06/03/25 20:00 06/06/25 13:16 Ipratropium 0.5 Mg/Albuterol Sulfate 2.5 Mg (Base) Ampul.Neb 3 Ml INHALATION 3 ml Q6HRT JUAN M Administration Amlodipine Besylate 10 mg 06/04/25 09:00 06/06/25 08:07 Amlodipine Besylate 10 Mg Tablet PO 10 mg DAILY JUAN M Administration Benzonatate 100 mg 06/03/25 17:42 06/06/25 11:21 Benzonatate 100 Mg Capsule PO 100 mg Q8H PRN Administration Cough Ergocalciferol 1,250 mcg 06/05/25 09:00 06/05/25 15:30 Ergocalciferol (Vitamin D2) 1,250 Mcg (50,000 Units) Capsule PO 1,250 mcg Sa@0900 JUAN M Administration Fluticasone/Umeclidinium/Vilanterol 1 puff 06/04/25 08:00 06/06/25 08:45 Fluticasone/Umeclidin/Vilanter 100-62.5-25 Mcg Ellipta INHALATION 1 puff DAILYRT JUAN M Administration Gabapentin 300 mg 06/04/25 09:00 06/06/25 08:07 Gabapentin 300 Mg Capsule PO 300 mg BID JUAN M Administration Guaifenesin 600 mg 06/03/25 21:00 06/06/25 08:08 Guaifenesin 12 Hr 600 Mg Tabcr PO 600 mg Q12HR JUAN M Administration Guaifenesin/Dextromethorphan 10 ml 06/05/25 04:49 06/06/25 05:46 Guaifenesin/Dextromethorphan 10 Ml Udc PO 10 ml Q4H PRN Administration Cough Ceftriaxone Sodium 1 gm/ 50 mls @ 100 mls/hr 06/04/25 18:00 06/05/25 18:14 Sodium Chloride IVPB Infused Q24H JUAN M Infusion Doxycycline Hyclate 100 mg/ 100 mls @ 100 mls/hr 06/04/25 07:00 06/06/25 08:07 Sodium Chloride IVPB 06/08/25 07:59 100 mls/hr Q12H JUAN M Administration Levothyroxine Sodium 88 mcg 06/04/25 06:30 06/06/25 05:44 Levothyroxine Sodium 88 Mcg Tablet PO 88 mcg DAILY@0630 JUAN M Administration Lisinopril 10 mg 06/04/25 09:00 06/06/25 08:08 Lisinopril 10 Mg Tablet PO 10 mg DAILY JUAN M Administration Loratadine 10 mg 06/03/25 23:04 Loratadine 10 Mg Tablet PO Q24H PRN allergy symptoms Metoprolol Tartrate 50 mg 06/04/25 09:00 06/06/25 08:08 Metoprolol Tartrate 50 Mg Tab PO 50 mg Q12HR JUAN M Administration Sertraline HCl 50 mg 06/04/25 09:00 06/06/25 08:08 Sertraline Hcl 50 Mg Tablet PO 50 mg DAILY JUAN M Administration Radiology Results: ITS Impressions Chest X-Ray 06/03/25 16:10 Impression: Early bilateral pneumonia Head CT 06/05/25 16:24 Impression: 1.No acute intracranial abnormality. Labs Labs: Laboratory Results - last 24 hr 06/06/25 05:41 WBC 9.8 RBC 4.27 Hgb 12.3 Hct 37.6 MCV 88.1 MCH 28.8 MCHC 32.7 RDW 14.3 Plt Count 201 MPV 10.0 Immature Gran % (Auto) 0.6 H Neut % (Auto) 63.6 Lymph % (Auto) 25.2 [place] % (Auto) 9.3 H Eos % (Auto) 1.0 Baso % (Auto) 0.3 Lymph # (Auto) 2.47 [place] # (Auto) 0.9 H Eos # (Auto) 0.1 Baso # (Auto) 0.0 Abs Immat Gran (auto) 0.06 H Absolute Neuts (auto) 6.2 Absolute Nucleated RBC 0.000 Nucleated RBC % 0.0 Sodium 133 L Potassium 3.3 L Chloride 94 L Carbon Dioxide 36 H Anion Gap 3 L BUN 8 Creatinine 0.39 L Estim Creat Clear Calc Not Reportable Estimated GFR > 60 Glucose 90 Lactic Acid 0.8 Calcium 8.4 Magnesium 1.6 Total Bilirubin 0.2 AST 30 ALT 23 Alkaline Phosphatase 101 Total Protein 6.0 L Albumin 3.0 L Quality VTE Prophylaxis VTE prophylaxis: mechanical ordered
[2025-06-06] MEDS: cefTRIAXone 1 GM in SODIUM CHLORIDE 0.9% IV 50 ML 100 ML IVPB (17:13)
[2025-06-06] MEDS: MAGNESIUM SULF 2 GM/WATER 50ML 2 GM/50 ML BAG IVPB (18:40)
[2025-06-06] MEDS: POTASSIUM CHLORIDE 20 MEQ PACKET (FOR LIQUID) 40 MEQ PO (18:41)
[2025-06-06] MEDS: POTASSIUM CHLORIDE INJ 40 MEQ in SODIUM CHLORIDE 0.9% IV 500 ML 130 MEQ IVPB (18:56)
[2025-06-07] VITALS (11 sets, daily range): BP systolic 128–148; BP diastolic 72–78; PULSE 69–94; RESP 18–20; TEMP 36.2–36.6; O2SAT 96–98
--- NOTE | 2025-06-07 00:19 | PCRCNOTE ---
RN called [facility] at 2300 for prn tx. Pt was sleeping comfortably RT will see pt for their 0200 am tx.
[2025-06-07] MEDS: IPRATROPIUM 0.5 MG/ALBUTEROL SULFATE 2.5 MG (BASE) AMPUL.NEB 3 ML INHALATION ×2 (01:57→08:17)
[2025-06-07] MEDS: LEVOTHYROXINE SODIUM 88 MCG TABLET PO (05:45)
[2025-06-07 05:57] LABS: Hematocrit 38.9 % (37.0-47.0); Hemoglobin 12.7 g/dL (12.0-15.0); Immature Granulocyte Percent A 0.9 % (0-0.5); Lymphocytes Absolute Auto 2.82 K/mm3 (0.9-3.2); Mean Corpuscular HGB Conc 32.6 g/dl (32-36); Mean Corpuscular Hemoglobin 28.9 pg (26-34); Mean Corpuscular Volume 88.4 fl (80-100); Nucleated Red Blood Cells Absolute Auto 0.000 K/mm3 (0.0-0.012); Nucleated Red Blood Cells Perc 0.0 % (0.0-0.2); Platelet Count Result 226 k/mm3 (150-375); Red Blood Count 4.40 M/mm3 (4.2-5.4); White Blood Count 9.4 K/mm3 (4.5-10.0)
[2025-06-07 06:18] LABS: Alanine Aminotransferase 18 U/L (6-35); Albumin Level 3.0 g/dL (3.5-5.1); Alkaline Phosphatase 108 U/L (38-126); Anion Gap 1 mmol/L (4-12); Aspartate Amino Transferase 21 U/L (14-36); Bilirubin,Total 0.2 mg/dL (0.2-1.3); Blood Urea Nitrogen 8 mg/dL (7-17); Calcium 8.3 mg/dL (8.4-10.2); Carbon Dioxide 35 mmol/L (22-30); Chloride 97 mmol/L (98-107); Estimated Glomerular Filt Rate > 60; Glucose 103 mg/dL (65-110); Magnesium 2.4 mg/dL (1.6-2.3); Potassium 4.2 mmol/L (3.4-5.0); Sodium 133 mmol/L (137-145); Total Protein 5.9 g/dL (6.3-8.2)
[2025-06-07] MEDS: DOXYCYCLINE IV 100 MG in SODIUM CHLORIDE 0.9% IV 100 ML IVPB (06:40)
[2025-06-07] MEDS: BENZONATATE 100 MG CAPSULE PO (08:09)
[2025-06-07] MEDS: GABAPENTIN 300 MG CAPSULE PO (08:10)
[2025-06-07] MEDS: PHENAZOPYRIDINE HCL 100 MG TABLET 200 MG PO (08:10)
[2025-06-07] MEDS: guaiFENesin 12 HR 600 MG TABCR PO (08:10)
[2025-06-07] MEDS: METOPROLOL TARTRATE 50 MG TAB PO (08:11)
[2025-06-07] MEDS: SERTRALINE HCL 50 MG TABLET PO (08:11)
[2025-06-07] MEDS: FLUTICASONE/UMECLIDIN/VILANTER 100-62.5-25 MCG ELLIPTA 1 PUFF INHALATION (08:25)
[2025-06-07 12:15] LABS: IFOB Positive Control Positive; Immunochemical Fecal Occult Bl Negative (N)
--- NOTE | 2025-06-07 12:27 | P.DS_ITS ---
DS: Admitting Diagnosis Discharge Date 06/07/25 Admitting Diagnosis Cough, Fever, Shortness of Breath DS: Discharge Diagnosis Discharge Diagnosis (1) CAP (community acquired pneumonia): Qualifiers: Laterality: unspecified laterality Qualified Code(s): J18.9 - Pneumonia, unspecified organism Code(s): J18.9 - Pneumonia, unspecified organism Status: Acute DS: Summary Hospital Course Hospital Course: HPI per admitting provider: 69 y/o F with PMH of COPD, hypothyroidism, hypertension, depression, and anxiety presents here with cough, fever, shortness of breath, and cold-like symptoms. The patient presents here from home on 06/03 for further evaluation of productive cough, fever, body aches, cold-like symptoms, and shortness of breat h. Symptoms started last week and developed fever Saturday. She has a past medical history significant for COPD and supplemental oxygen use p.r.n. (2L NC). She arrived to the emergency department 84% on room air, was unable to carry her portable O2 tank due to her current symptoms. She was noted to be tripoding, pursed lip breathing, and significantly tachypneic/tachycardic. She was subsequently placed on 3L nasal cannula and improved to 94%. She additionally reports nausea, vomiting, poor appetite, urinary incontinence without saddle anesthesia, and lightheadedness. Denies diarrhea, chest pain, and palpitations. Initial VS at presentation: 99.7? F, HR 107, R 26, 142/63, and 84% on room air. Now 94% on 3L nasal cannula. ED workup showed: WBC 16.2, no anemia, sodium 131, potassium 3.1, creatinine 0.37 and GFR >60, glucose 112, viral PCR negative. CXR showed early bilateral pneumonia. EKG showed sinus tachycardia, rate 103. Patient was managed for sepsis from pneumonia with Rocephin adn Doxycycline. Sepsis reoslved and patient 's oxygen at baseline now. Cultures negative Patient also complained of melena stool prolonged his stay in [facility] to obtain FOBT , whuch today is negative. Thus GI bleed was ruled out. Discharged on 3 more days of Doxycycline and Cefdinir. Patient will continue follow up with PCP in 3-5 days Time Spent with Patient Time attestation: Total time spent providing and/or coordinating discharge services: DS: Data Data Completed and Pending Labs on day of discharge: Labs from last 24 hours 06/07/25 06/06/25 05:43 22:10 WBC 9.4 RBC 4.40 Hgb 12.7 Hct 38.9 MCV 88.4 MCH 28.9 MCHC 32.6 RDW 14.2 Plt Count 226 MPV 9.6 Immature Gran % (Auto) 0.9 H Neut % (Auto) 55.8 Lymph % (Auto) 30.1 [place] % (Auto) 10.0 H Eos % (Auto) 2.8 Baso % (Auto) 0.4 Lymph # (Auto) 2.82 [place] # (Auto) 0.9 H Eos # (Auto) 0.3 Baso # (Auto) 0.0 Abs Immat Gran (auto) 0.08 H Absolute Neuts (auto) 5.2 Absolute Nucleated RBC 0.000 Nucleated RBC % 0.0 Sodium 133 L Potassium 4.2 Chloride 97 L Carbon Dioxide 35 H Anion Gap 1 L BUN 8 Creatinine 0.42 L Estim Creat Clear Calc Not Reportable Estimated GFR > 60 Glucose 103 Calcium 8.3 L Magnesium 2.4 H Total Bilirubin 0.2 AST 21 ALT 18 Alkaline Phosphatase 108 Total Protein 5.9 L Albumin 3.0 L Stl Occult Blood (IFOB) Negative Preliminary micro results at discharge 06/03/25 17:56 Blood Culture - Preliminary Blood 06/03/25 17:56 Blood Culture - Preliminary Blood 06/04/25 05:44 Sputum Culture - Preliminary Sputum Discharge Plan Discharge Attending physician on discharge: Nomi Campos Discharging Clinician: Nomi Campos Anticipated Discharge Date/Time: 06/07/25 12:23 Patient Disposition: Home Activity: as tolerated Diet: as tolerated and heart healthy Patient Instructions: Antibiotic Form Patient Language: Grenadian Stand Alone Forms: General Discharge Information Follow-up/Referrals: Samantha Brooks NP [Primary Care Provider, Internal Medicine] Referral Note: F/u with PCP in 3-5 days Discharge Medications: New cefdinir 300 mg capsule 300 mg PO Q12H 3 Days Qty: 6 0RF doxycycline hyclate 100 mg tablet 100 mg PO BID 3 Days Qty: 6 0RF Continued Trelegy Ellipta 100-62.5-25 mcg blister with device 1 inh inhalation DAILY Qty: 60 5RF Rx Instructions: rinse and spit sertraline 100 mg tablet 50 mg PO DAILY loratadine [Claritin] 10 mg tablet 10 mg PO Q24H PRN (Reason: allergy symptoms) ipratropium bromide 0.02 % solution 2.5 ml inhalation Q6H PRN (Reason: shortness of breath or wheezing) Qty: 300 5RF levothyroxine 88 mcg tablet 88 mcg PO DAILY Qty: 90 1RF gabapentin 300 mg capsule 300 mg PO BID Qty: 180 1RF cholecalciferol (vitamin D3) 1,250 mcg (50,000 unit) capsule 1,250 mcg PO WEEKLY Qty: 8 0RF Patient Comments: TAKES ON SATURDAY lisinopril 10 mg tablet 10 mg PO DAILY Qty: 90 1RF amlodipine 10 mg tablet 10 mg PO DAILY Qty: 90 1RF metoprolol tartrate 50 mg tablet 50 mg PO BID Qty: 180 1RF albuterol sulfate 90 mcg/actuation HFA aerosol inhaler See Rx Instructions .ROUTE .COMPLEX Qty: 8.5 3RF Dose Instruction: INHALE 2 PUFFS EVERY 4-6 HOURS NEEDED FOR SHORTNESS OF BREATH Rx Instructions: INHALE 2 PUFFS EVERY 4-6 HOURS NEEDED FOR SHORTNESS OF BREATH Date of admission: 06/03/25 17:42 Primary Care Provider: Samantha Brooks Admitting Provider: Nomi Campos Attending physician on admission: Nomi Campos Condition: Stable
== END 2025-06-07 14:47 | disposition home or self-care (01) | DRG 871 ==
LOC: ANHED 17:41 → ANH3MEDSUR 19:17 → ANH3MED 19:49
PROVIDERS: Emergency Medicine; Student in an Organized Health Care Education/Training Program; Admitting Provider Internal Medicine; Emergency Provider Emergency Medicine; PCP Nurse Practitioner; Visit Provider Internal Medicine
DX: A41.9 Sepsis, unspecified organism (principal); J18.9 Pneumonia, unspecified organism; J44.0 Chronic obstructive pulmonary disease with (acute) lower respiratory infection; J96.11 Chronic respiratory failure with hypoxia; K92.1 Melena; I10 Essential (primary) hypertension; E03.9 Hypothyroidism, unspecified; F41.9 Anxiety disorder, unspecified; F32.A Depression, unspecified; R11.2 Nausea with vomiting, unspecified; R32 Unspecified urinary incontinence; M19.90 Unspecified osteoarthritis, unspecified site; M54.50 Low back pain, unspecified; Z20.822 Contact with and (suspected) exposure to COVID-19; B96.89 Other specified bacterial agents as the cause of diseases classified elsewhere; R00.0 Tachycardia, unspecified; F17.210 Nicotine dependence, cigarettes, uncomplicated; Z99.81 Dependence on supplemental oxygen; Z90.49 Acquired absence of other specified parts of digestive tract; Z79.51 Long term (current) use of inhaled steroids
CPT/HCPCS: 36415; 70450; 71045; 80048; 80053; 81003; 82274; 82803; 83605; 83735; 84145; 84443; 85025; 87040; 87045; 87046; 87070; 87205; 87427; 87637; 87641; 93005; 94640; 96374; 99285; A9270; J0696; J2919; J3475; J3480; J7040; J7120; J7512

== ENCOUNTER 2025-06-17 18:03 | Emergency (ER) | payer MEDICARE, SELFPAY ==
[2025-06-17] VITALS (14 sets, daily range): BP systolic 119–127; BP diastolic 57–75; PULSE 80–93; RESP 15–25; TEMP 36.7–36.8; O2SAT 89–97
--- NOTE | ~2025-06-17 | XR_ITS ---
XR chest 2V HOSTORY: sob, cough COMPARISON:[ None] FINDINGS: Frontal and lateral views of the chest were obtained. The lungs are clear. The heart size is normal in size. Pulmonary vasculature is unremarkable. Osseous structures are intact. IMPRESSION: No acute lung findings.] [ ] Reviewed, dictated and finalized at location S.
--- OUTSIDE RECORDS SUMMARY | 2025-06-17 18:12 | XMS_ITS | Clinical Summary ---
Author Organization [facility] e Address [id number] [place] [address] [place] [address] Care Team Providers Care Pantry Cook Name Role Phone Kevin Kelly DO Primary [...] 2 8 Active fluticasone (FLONASE) 50 mcg/spray [place], SuspensionIndicati ons:Perennial allergic rhinitis Administer 2 Sprays [...] the evening; will see her ophth in [place] re: eye symptoms Recurrent cold sores 12/03/2015 [...] Comments Blood Pressure 116/70 10/28/2017 10:41 AM BAR POINTER Pulse 63 10/28/2017 10:41 AM BAR POINTER Temperature 36.7 C (98 F) 10/28/2017 10:41 AM BAR POINTER Respiratory Rate 17 10/05/2016 11:54 AM BAR POINTER Oxygen Saturation 97% 10/28/2017 10:41 AM BAR POINTER Inhaled Oxygen Concentration - - Weight 44.8 kg (98 lb 12.8 oz) 10/28/2017 10:41 AM BAR POINTER Height 149.9 cm (4' 11) 10/28/2017 10:41 AM BAR POINTER Body Mass Index 19.96 10/28/2017 10:41 AM BAR POINTER Plan of Treatment Health Maintenance Due Date [...] - 1-dose 75+ series) 2029 Care Teams Pantry Cook Relationship Specialty Start Date End Date Kevin Kelly DO PCP - General Hospitalists 02/03/13
--- OUTSIDE RECORDS SUMMARY | 2025-06-17 18:12 | XMS_ITS | Encounter Summary ---
Author Organization [facility] Address [address] [place] [address] Care Team Providers Care Male Impersonator Name Role Phone Kevin Kelly DO Primary Care Provider + Reason for Visit * Reason Comments Medication Refill Encounter Details Date Type Department Care Team (Late st Contact Info) Description 10/19/[address] [facility] Medicine [address] [address] Kevin Kelly DO [address] [facility] [address] [place] [address] Degenerative lumbar spinal stenosis Social [...] claudication documented in this encounter Care Teams Male Impersonator Relationship Specialty Start Date End Date Kevin Kelly DO PCP - General Hospitalists 02/03/13 documented as of this encounter
--- OUTSIDE RECORDS SUMMARY | 2025-06-17 18:12 | XMS_ITS | Encounter Summary ---
Author Organization [facility] Address [address] [place] [address] Care Team Providers Care Pony Worker Name Role Phone Kevin Kelly DO Primary Care Provider + Reason for Visit * Reason Comments Medication Refill Encounter Details Date Type Department Care Team (Late st Contact Info) Description 08/19/2017 Refill [facility] Medicine [address] [address] Kevin Kelly DO [address] [facility] [address] [place] [address] Degenerative lumbar spinal stenosis Social [...] claudication documented in this encounter Care Teams Pony Worker Relationship Specialty Start Date End Date Kevin Kelly DO PCP - General Hospitalists 02/03/13 documented as of this encounter
--- NOTE | 2025-06-17 18:18 | ECG_ITS ---
Test Date: 2025-06-17 21:06:09 Measurements Intervals [place]ott Rate: 83 P: 114 RI: 135 QRS: 126 QRSD: 72 T: 112 QT: 352 QTc: 414 Interpretive Statements SINUS RHYTHM ARM LEADS REVERSED BASELINE ARTIFACT- I, III, AVR, AVL ATYPICAL ECG Compared to ECG 06/03/2025 16:19:37 HEART RATE HAS DECREASED Electronically Signed On 06-18-2025 06:26:08 CDT by Azeem Garay D.O.
--- NOTE | 2025-06-17 18:18 | ED.SOB ---
HPI - SOB/Dyspnea General Chief Complaint: Shortness of Breath/Dyspnea <Samantha Chaidez PA-C - Last Filed: 06/18/25 17:28> Stated Complaint: SOB <Samantha Chaidez PA-C - Last Filed: 06/18/25 17:28> Time Seen by Provider: 06/17/25 18:18 <Samantha Chaidez PA-C - Last Filed: 06/18/25 17:28> Focused HPI: This is a 69 year old female that presents to the ER for shortness of breath. Reports history of COPD. Chronically wears 2L NC. Reports productive cough, chest pain. Denies fevers. GENERAL: Elderly, well-nourished, and in no acute distress. HEAD: Normocephalic, atraumatic. CHEST: No respiratory distress. Coarse with cough, diminished HEART: Regular rate and rhythm.? NEURO: ?Alert and oriented x3. Patient screened in triage and initial orders placed.? ?Additional care and disposition to be based upon?diagnostic testing and treatment. <Samantha Chaidez PA-C - Last Filed: 06/18/25 17:28> History of Present Illness HPI Narrative: as per mse. Pt recently admitted here for pneumonia discharged 06/07. Pt says cough is improved but PCP did not like her ekg or the ways she looked and sounded today so recommended coming back to the ER. Pt is not running fever. <Jacque Sams III, DO - Last Filed: 06/17/25 22:14> Related Data Home Medications: Home Medications ?Medication ?Instructions ?Recorded ?Confirmed ?Last Taken ?Type loratadine 10 mg tablet (Claritin) 10 mg PO Q24H PRN allergy symptoms 06/03/25 06/17/25 Unknown History sertraline 100 mg tablet 50 mg PO DAILY 06/03/25 06/17/25 Unknown History <KLAUS Evans Last Filed: 06/18/25 17:28> Allergies/Adverse Reactions: Allergies Allergy/AdvReac Type Severity Reaction Status Date / Time ciprofloxacin Allergy Intermediate sob and Verified 06/17/25 18:04 nausea clindamycin Allergy Intermediate sob and Verified 06/17/25 18:04 nausea Penicillins Allergy Intermediate sob and Verified 06/17/25 18:04 nausea amitriptyline Allergy Mild Nausea Verified 06/17/25 18:04 escitalopram Allergy Mild nauseated Verified 06/17/25 18:04 shellfish derived AdvReac Hives Verified 06/17/25 18:04 <Samantha Chaidez PA-C - Last Filed: 06/18/25 17:28> Review of Systems Review of Systems: All systems reviewed & are unremarkable except as noted in HPI and below <Jacque Garcia Sams III, DO - Last Filed: 06/17/25 22:14> [facility] Past Medical History Medical History: Medical History Headache Colitis Arthritis Allergies Hypothyroid Hypertension Depression COPD (chronic obstructive pulmonary disease) Anxiety <Samantha Chaidez PA-C - Last Filed: 06/18/25 17:28> Surgical History Surgical History: Surgical History History of lumbar surgery History of right inguinal hernia repair History of bladder suspension procedure H/O total hysterectomy 1982 Status post cholecystectomy <Samantha Chaidez PA-C - Last Filed: 06/18/25 17:28> Family History Family History: Family History Sibling Depression Family history of diabetes mellitus in first degree relative Cancer Hypertension Thyroid disorder Mother Hypertension Cancer Depression Heart disease Thyroid disorder Father Family history of coronary artery disease Hypertension Heart disease Depression Grandparent Heart disease Hypertension <Samantha Chaidez PA-C - Last Filed: 06/18/25 17:28> Social History Social History: Social History Smoking packs per day: 1 Smoking cigarettes per day: 20.0 Years smoked: 53 Smoking pack-years: 53.00 Smoking status: Current every day smoker Tobacco type: cigarettes Additional smoking assessment comments: Currently smoking 1/2ppd. Alcohol intake: never Substance use: never Substance use type: does not use Lack of Transportation: No Lack of Food: Never True Current Housing: I Have Housing Concerned About Future Housing: No Difficulty Paying Gas/Electric Bills: No Difficulty Paying for Meds: No Currently Unemployed: No Education: High School Diploma/GED Difficulty w/ Childcare or Family Care: No Spiritual care concerns: No <Samantha Chaidez PA-C - Last Filed: 06/18/25 17:28> Exam Const: General: healthy appearing and no acute distress <Jacque Jose Sams III, DO - Last Filed: 06/17/25 22:14> Nutritional Appearance: well nourished <Jacque Jose Sams III, DO - Last Filed: 06/17/25 22:14> Orientation/consciousness: patient oriented x3 <Jacque Jose Sams III, DO - Last Filed: 06/17/25 22:14> Limitations: no limitations <Jacque Jose Sams III, DO - Last Filed: 06/17/25 22:14> Chest: Chest palpation & inspection: normal inspection of the chest <Jacque Jose Sams III, DO - Last Filed: 06/17/25 22:14> Resp: Effort & Inspection: normal respiratory effort <Jacque Jose Sams III, DO - Last Filed: 06/17/25 22:14> Auscultation: clear to auscultation bilaterally <Jacque Jose Sams III, DO - Last Filed: 06/17/25 22:14> Cardio: Rate: regular rate <Jacque Jose Sams III, DO - Last Filed: 06/17/25 22:14> Rhythm: regular rhythm <Jacque Jose Sams III, DO - Last Filed: 06/17/25 22:14> GI: GI Palp: Yes Soft to palpation and No Tenderness to palpation present (GI) <Jacque Jose Sams III, DO - Last Filed: 06/17/25 22:14> Auscultation: normal bowel sounds <Jacque Jose Sams III, DO - Last Filed: 06/17/25 22:14> Skin: General skin exam: normal color <Jacque Jose Sams III, DO - Last Filed: 06/17/25 22:14> Rashes: no rashes <Jacque Jose Sams III, DO - Last Filed: 06/17/25 22:14> Wounds: no wounds <Jacque Jose Sams III, DO - Last Filed: 06/17/25 22:14> Neuro: General: patient oriented x3, moves all extremities and no focal motor deficits <Jacque Jose Sams III, DO - Last Filed: 06/17/25 22:14> Speech: normal speech <Jacque Jose Sams III, DO - Last Filed: 06/17/25 22:14> Extrem: General: normal to inspection and no clubbing, cyanosis or edema <Jacque Jose Sams III, DO - Last Filed: 06/17/25 22:14> Psych: Mental Status: mental status grossly normal <Jacque Jose Sams III, DO - Last Filed: 06/17/25 22:14> Affect: normal affect <Jacque Jose Sams III, DO - Last Filed: 06/17/25 22:14> Attitude: cooperative <Jacque Jose Sams III, DO - Last Filed: 06/17/25 22:14> Course Vital Signs Vital signs: Vital Signs Temperature 98.3 F 06/17/25 18:14 Pulse Rate 88 06/17/25 18:14 Respiratory Rate 20 06/17/25 18:14 Blood Pressure 119/57 L 06/17/25 18:14 Pulse Oximetry 89 L 06/17/25 18:14 Oxygen Delivery Room Air 06/17/25 18:14 Temperature 98.0 F 06/17/25 20:49 Pulse Rate 85 06/17/25 22:45 Respiratory Rate 20 06/17/25 22:45 Blood Pressure 121/68 06/17/25 22:31 Pulse Oximetry 96 06/17/25 22:45 Oxygen Delivery Nasal Cannula 06/17/25 21:15 Oxygen Flow Rate 2 06/17/25 21:15 <Samantha Chaidez PA-C - Last Filed: 06/18/25 17:28> Vital Signs Temperature 98.3 F 06/17/25 18:14 Pulse Rate 88 06/17/25 18:14 Respiratory Rate 20 06/17/25 18:14 Blood Pressure 119/57 L 06/17/25 18:14 Pulse Oximetry 89 L 06/17/25 18:14 Oxygen Delivery Room Air 06/17/25 18:14 Temperature 98.0 F 06/17/25 20:49 Pulse Rate 85 06/17/25 22:45 Respiratory Rate 20 06/17/25 22:45 Blood Pressure 121/68 06/17/25 22:31 Pulse Oximetry 96 06/17/25 22:45 Oxygen Delivery Nasal Cannula 06/17/25 21:15 Oxygen Flow Rate 2 06/17/25 21:15 <Jacque Jose Goodmanver III, DO - Last Filed: 06/17/25 22:14> MDM - SOB/Dyspnea MDM Narrative Medical decision making narrative: Pt presents with SOB but actually improved form when she was discharged. Pt told to be evaluated by PCP today in follow up office visit. will get ekg and cxr and labs. <Jacque Goodmanver III, DO - Last Filed: 06/17/25 22:14> Differential Diagnosis Differential diagnosis: Likely acute exacerbation of chronic obstructive airways disease, congestive heart failure and community acquired pneumonia <Jacque Goodmanver III, DO - Last Filed: 06/17/25 22:14> Lab Data Attestation: I reviewed the patient's lab results. <Jacque Sams III, DO - Last Filed: 06/17/25 22:14> Result diagrams: 06/17/25 20:52 06/17/25 20:52 <Samantha Chaidez PA-C - Last Filed: 06/18/25 17:28> Labs: Lab Results 06/17/25 Range/Units 20:52 WBC 8.2 (4.5-10.0) K/mm3 RBC 4.36 (4.2-5.4) M/mm3 Hgb 12.6 (12.0-15.0) g/dL Hct 39.0 (37.0-47.0) % MCV 89.4 (80-100) fl MCH 28.9 (26-34) pg MCHC 32.3 (32-36) g/dl RDW 14.7 H (11.5-14.5) % Plt Count 331 (150-375) k/mm3 MPV 9.7 (7.4-10.4) fl Immature Gran % (Auto) 0.4 (0-0.5) % Neut % (Auto) 56.4 (45.5-73.1) % Lymph % (Auto) 29.5 (18.3-44.2) % [place] % (Auto) 8.9 H (2.6-8.5) % Eos % (Auto) 3.9 (0-4.4) % Baso % (Auto) 0.9 (0.2-1.2) % Lymph # (Auto) 2.41 (0.9-3.2) K/mm3 [place] # (Auto) 0.7 H (0.1-0.6) K/mm3 Eos # (Auto) 0.3 (0-0.3) K/mm3 Baso # (Auto) 0.1 (0.0-0.1) K/mm3 Abs Immat Gran (auto) 0.03 (0.00-0.031) K/mm3 Absolute Neuts (auto) 4.6 (1.3-6.7) K/mm3 Absolute Nucleated RBC 0.000 (0.0-0.012) K/mm3 Nucleated RBC % 0.0 (0.0-0.2) % Sodium 139 (137-145) mmol/L Potassium 3.5 (3.4-5.0) mmol/L Chloride 102 (98-107) mmol/L Carbon Dioxide 32 H (22-30) mmol/L Anion Gap 5 (4-12) mmol/L BUN 16 (7-17) mg/dL Creatinine 0.61 L (0.7-1.0) mg/dL Estim Creat Clear Calc Not Reportable Estimated GFR > 60 (59 - ) Glucose 102 (65-110) mg/dL Calcium 8.8 (8.4-10.2) mg/dL Total Bilirubin 0.3 (0.2-1.3) mg/dL AST 26 (14-36) U/L ALT 14 (6-35) U/L Alkaline Phosphatase 90 (38-126) U/L Troponin I < 0.012 (0.000-0.034) ng/mL Total Protein 6.7 (6.3-8.2) g/dL Albumin 3.6 (3.5-5.1) g/dL Influenza A (RT-PCR) Negative (Negative) Influenza B (RT-PCR) Negative (Negative) RSV (RT-PCR) Negative (Negative) SARS-CoV-2 RNA (RT-PCR) Negative (Negative) <Samantha Chaidez PA-C - Last Filed: 06/18/25 17:28> Lab Results 06/17/25 Range/Units 20:52 WBC 8.2 (4.5-10.0) K/mm3 RBC 4.36 (4.2-5.4) M/mm3 Hgb 12.6 (12.0-15.0) g/dL Hct 39.0 (37.0-47.0) % MCV 89.4 (80-100) fl MCH 28.9 (26-34) pg MCHC 32.3 (32-36) g/dl RDW 14.7 H (11.5-14.5) % Plt Count 331 (150-375) k/mm3 MPV 9.7 (7.4-10.4) fl Immature Gran % (Auto) 0.4 (0-0.5) % Neut % (Auto) 56.4 (45.5-73.1) % Lymph % (Auto) 29.5 (18.3-44.2) % [place] % (Auto) 8.9 H (2.6-8.5) % Eos % (Auto) 3.9 (0-4.4) % Baso % (Auto) 0.9 (0.2-1.2) % Lymph # (Auto) 2.41 (0.9-3.2) K/mm3 [place] # (Auto) 0.7 H (0.1-0.6) K/mm3 Eos # (Auto) 0.3 (0-0.3) K/mm3 Baso # (Auto) 0.1 (0.0-0.1) K/mm3 Abs Immat Gran (auto) 0.03 (0.00-0.031) K/mm3 Absolute Neuts (auto) 4.6 (1.3-6.7) K/mm3 Absolute Nucleated RBC 0.000 (0.0-0.012) K/mm3 Nucleated RBC % 0.0 (0.0-0.2) % Sodium 139 (137-145) mmol/L Potassium 3.5 (3.4-5.0) mmol/L Chloride 102 (98-107) mmol/L Carbon Dioxide 32 H (22-30) mmol/L Anion Gap 5 (4-12) mmol/L BUN 16 (7-17) mg/dL Creatinine 0.61 L (0.7-1.0) mg/dL Estim Creat Clear Calc Not Reportable Estimated GFR > 60 (59 - ) Glucose 102 (65-110) mg/dL Calcium 8.8 (8.4-10.2) mg/dL Total Bilirubin 0.3 (0.2-1.3) mg/dL AST 26 (14-36) U/L ALT 14 (6-35) U/L Alkaline Phosphatase 90 (38-126) U/L Troponin I < 0.012 (0.000-0.034) ng/mL Total Protein 6.7 (6.3-8.2) g/dL Albumin 3.6 (3.5-5.1) g/dL Influenza A (RT-PCR) Negative (Negative) Influenza B (RT-PCR) Negative (Negative) RSV (RT-PCR) Negative (Negative) SARS-CoV-2 RNA (RT-PCR) Negative (Negative) <Jacque Jose Sams III, DO - Last Filed: 06/17/25 22:14> Imaging Data Attestation: I personally reviewed and interpreted this imaging study as follows: <Jacque Jose Sams III, DO - Last Filed: 06/17/25 22:14> My impression: napd <Jacque Jose Sams III, DO - Last Filed: 06/17/25 22:14> ECG Data EKG #1: Attestation: I personally reviewed and interpreted this ECG as follows: <Jacque Jose Sams III, DO - Last Filed: 06/17/25 22:14> Interpretation: nsr rate 83, no st or t wave changes <Jacque Jose Sams III, DO - Last Filed: 06/17/25 22:14> Discharge Plan Discharge Clinical Impression: COPD with acute exacerbation <Samantha Chaidez PA-C - Last Filed: 06/18/25 17:28> Patient Disposition: Home <KLAUS Evans Last Filed: 06/18/25 17:28> Condition: Stable <KLAUS Evans Last Filed: 06/18/25 17:28> Instructions: Antibiotic Form, COPD (Chronic Obstructive Pulmonary Disease) (ED) <KLAUS Evans Last Filed: 06/18/25 17:28> Patient Language: Turkmen <KLAUS Evans Last Filed: 06/18/25 17:28> Prescriptions: New prednisone 10 mg tablets,dose pack See Taper PO DAILY 12 Days Qty: 42 0RF Taper: Prednisone Taper from 60 mg;12 days 60 mg DAILY for 2 Days and 0 Hour 50 mg DAILY for 2 Days and 0 Hour 40 mg DAILY for 2 Days and 0 Hour 30 mg DAILY for 2 Days and 0 Hour 20 mg DAILY for 2 Days and 0 Hour 10 mg DAILY for 2 Days and 0 Hour No Action Trelegy Ellipta 100-62.5-25 mcg blister with device 1 inh inhalation DAILY Qty: 60 5RF Rx Instructions: rinse and spit sertraline 100 mg tablet 50 mg PO DAILY loratadine [Claritin] 10 mg tablet 10 mg PO Q24H PRN (Reason: allergy symptoms) ipratropium bromide 0.02 % solution 2.5 ml inhalation Q6H PRN (Reason: shortness of breath or wheezing) Qty: 300 5RF levothyroxine 88 mcg tablet 88 mcg PO DAILY Qty: 90 1RF gabapentin 300 mg capsule 300 mg PO BID Qty: 180 1RF cholecalciferol (vitamin D3) 1,250 mcg (50,000 unit) capsule 1,250 mcg PO WEEKLY Qty: 8 0RF Patient Comments: TAKES ON SATURDAY lisinopril 10 mg tablet 10 mg PO DAILY Qty: 90 1RF amlodipine 10 mg tablet 10 mg PO DAILY Qty: 90 1RF metoprolol tartrate 50 mg tablet 50 mg PO BID Qty: 180 1RF albuterol sulfate 90 mcg/actuation HFA aerosol inhaler See Rx Instructions .ROUTE .COMPLEX Qty: 8.5 3RF Dose Instruction: INHALE 2 PUFFS EVERY 4-6 HOURS NEEDED FOR SHORTNESS OF BREATH Rx Instructions: INHALE 2 PUFFS EVERY 4-6 HOURS NEEDED FOR SHORTNESS OF BREATH <Samantha Chaidez PA-C - Last Filed: 06/18/25 17:28> Follow-up/Referrals: Samantha Brooks NP [Primary Care Provider, Internal Medicine] <Samantha Chaidez PA-C - Last Filed: 06/18/25 17:28>
--- NOTE | 2025-06-17 20:27 | PC.NURSE ---
No answer when called for blood draw
[2025-06-17 21:04] LABS: Hematocrit 39.0 % (37.0-47.0); Hemoglobin 12.6 g/dL (12.0-15.0); Immature Granulocyte Percent A 0.4 % (0-0.5); Lymphocytes Absolute Auto 2.41 K/mm3 (0.9-3.2); Mean Corpuscular HGB Conc 32.3 g/dl (32-36); Mean Corpuscular Hemoglobin 28.9 pg (26-34); Mean Corpuscular Volume 89.4 fl (80-100); Nucleated Red Blood Cells Absolute Auto 0.000 K/mm3 (0.0-0.012); Nucleated Red Blood Cells Perc 0.0 % (0.0-0.2); Platelet Count Result 331 k/mm3 (150-375); Red Blood Count 4.36 M/mm3 (4.2-5.4); White Blood Count 8.2 K/mm3 (4.5-10.0)
[2025-06-17] MEDS: MAGNESIUM SULF 2 GM/WATER 50ML 2 GM/50 ML BAG IVPB (21:06)
[2025-06-17] MEDS: IPRATROPIUM 0.5 MG/ALBUTEROL SULFATE 2.5 MG (BASE) AMPUL.NEB 3 ML INHALATION (21:13)
[2025-06-17 21:29] LABS: Alanine Aminotransferase 14 U/L (6-35); Albumin Level 3.6 g/dL (3.5-5.1); Alkaline Phosphatase 90 U/L (38-126); Anion Gap 5 mmol/L (4-12); Aspartate Amino Transferase 26 U/L (14-36); Bilirubin,Total 0.3 mg/dL (0.2-1.3); Blood Urea Nitrogen 16 mg/dL (7-17); Calcium 8.8 mg/dL (8.4-10.2); Carbon Dioxide 32 mmol/L (22-30); Chloride 102 mmol/L (98-107); Estimated Glomerular Filt Rate > 60; Glucose 102 mg/dL (65-110); Potassium 3.5 mmol/L (3.4-5.0); Sodium 139 mmol/L (137-145); Total Protein 6.7 g/dL (6.3-8.2)
[2025-06-17 21:39] LABS: Troponin I < 0.012 ng/mL (0.000-0.034)
[2025-06-17 21:42] LABS: Influenza A QL RT-PCR Negative (Negative); Influenza B QL RT-PCR Negative (Negative); RSV RNA, RT-PCR Negative (Negative); SARS-CoV-2 RNA PCR Negative (Negative)
== END 2025-06-17 23:09 | disposition home or self-care (01) ==
PROVIDERS: Physician Assistant; Emergency Provider Emergency Medicine; PCP Nurse Practitioner
DX: J44.1 Chronic obstructive pulmonary disease with (acute) exacerbation (principal); Z99.81 Dependence on supplemental oxygen; Z20.822 Contact with and (suspected) exposure to COVID-19; I10 Essential (primary) hypertension; E03.9 Hypothyroidism, unspecified; M19.90 Unspecified osteoarthritis, unspecified site; F32.A Depression, unspecified; F41.9 Anxiety disorder, unspecified; F17.210 Nicotine dependence, cigarettes, uncomplicated; Z90.710 Acquired absence of both cervix and uterus; Z90.49 Acquired absence of other specified parts of digestive tract; Z79.899 Other long term (current) drug therapy
CPT/HCPCS: 36415; 71046; 80053; 84484; 85025; 87637; 93005; 94640; 96365; 96366; 96375; 99284; J2919; J3475